=== PATIENT | male | born 1935 | race Caucasian/White ===

== ENCOUNTER 2016-03-04 07:37 | Outpatient (CLI) | payer MEDICARE, BC ==
[~2016-03-04] VITALS: Ht 182.9 cm; Wt 100.0 kg
--- NOTE | ~2016-03-04 | HEMODYNAMI ---
PATIENT:MJ GUTIERREZ MEDICAL RECORD: [id number] : 33 LOCATION:[facility] ADMISSION DATE: 03/04/16 Generatedon:03/04/201612:48 Patient name: MJ GUTIERREZ Patient #: [id number] SSN: [id number] : 1935 Date of study: 03/04/2016 Page: Of Hemodynamic Procedure Report Patient Data Patient Demographics Procedure consent was obtained First Name: MJ Gender: Male Last Name: MATT : 1935 [facility] Initial: L Age: 80 year(s) Patient #: [id number] Race: SSN: [id number] Additional ID: [id number] Contact details Address: [address] [place] [address] State: [place] City: [place] Zip code: [address] Past Medical History Allergies: No known allergies Admission Admission Data Admission Date: 03/04/2016 Admission Time: 7:37 Arrival Date: 03/04/2016 Arrival Time: 7:37 Admit Source: Other Insurance Payor: Medicare Height (in.): 72 BSA: 2.22 (m2) Height (cm.): 182.88 BMI: 29.84 (kg/m2) Weight (lbs.): 220 Weight (kg.): 99.79 Lab Results Lab Result Date: 03/04/2016 Lab Result Time: 0:00 Biochemistry Name Units Result Min Max BUN mg/dl 13 --(--*-)-- 7 18 Creatinine mg/dl 1.2 --(---*)-- 0.6 1.3 CBC Name Units Result Min Max Hemoglobin g/dl 14.7 --(-*--)-- 13.5 17.5 Procedure Procedure Types Cath Procedure Diagnostic Procedure [facility] w/Coronaries PCI Procedure Coronary Stent Initial Procedure Description Procedure Date Procedure Date: 03/04/2016 Procedure Start Time: 12:10 Procedure End Time: 12:41 Procedure Staff Name Function Keith Grider MD Performing Physician Lisa CHAPA Scrub Anusha White RN Nurse Leonidas Wise RN Undergraduate Internship Hoa Gonzales RT Monitor Indication Angina Procedure Data Cath Procedure Fluoroscopy Diagnostic fluoroscopy Total fluoroscopy Time: time: 14.3 min 14.3 min Diagnostic fluoroscopy Total fluoroscopy dose: dose: 1391.53 mGy 1391.53 mGy Contrast Material Contrast Material Type Amount (ml) Isovue 370 128 Entry Location Entry Primary Successful Side Size Upsize Upsize Entry Closure Succes sful Closure Location (Fr) 1 (Fr) 2 (Fr) Remarks Device Remarks Femoral Right 5 Fr 6 Fr Vascade artery Short Closure System Estimated blood loss: 5 ml Diagnostic catheters Device Type Used For End Catheter Placement Cordis 5Fr Pigtail LV Angiography Catheter (MP) Cordis 5Fr JL 4.0 Left Coronary Catheter (MP) Angiography Cordis 5Fr 3DRC Catheter Right Coronary (MP) Angiography Procedure Complications No complications Procedure Medications Medication Administration Route Dosage Oxygen NC 2 l/min Benadryl I.V. 50 mg Lidocaine 2% added to field 20 Heparin Flush Bag added to field 2 bags (1000units/500ml NS) 0.9% NaCl I.V. 100 ml/hr Versed I.V. 1 mg Fentanyl I.V. 50 mcg Versed I.V. 1 mg Fentanyl I.V. 50 mcg Heparin Bolus I.V. 4000 units Integrilin (Bolus I.V. 9 ml 2mg/ml) Plavix P.O. 600 mg Hemodynamics Rest BSA: 2.22 (m2) HGB: 14.7 (g/dl) O2 Consumption: Estimated: 247.45 (ml/min) O2 Co nsumption indexed: Estimated:111.46 (ml/min/m) Heart Rate: 63 (bpm) Pressure Samples Time Site Value (mmHg) Purpose Heart Use Rate(bpm) 12:12 LV 87/13,17 Snapshot 70 Snapshots Pre Cath Intra NCS Post Cath Vital Signs Time Heart Resp SPO2 NIBP (mmHg) Rhythm Pain Sedation Rate (ipm) (%) Status Level (bpm) 12:05:33 61 16 97 141/90(133) NSR 0 (11) 10(A) , No pain 12:10:36 52 23 96 123/77(103) NSR 0 (11) 10(A) , No pain 12:14:54 51 22 96 110/72(93) NSR 0 (11) 9(A) , No pain 12:19:53 58 20 96 120/68(99) NSR 0 (11) 9(A) , No pain 12:24:13 57 16 96 113/61(99) NSR 0 (11) 9(A) , No pain 12:28:21 51 17 96 109/69(95) NSR 0 (11) 9(A) , No pain 12:32:29 54 16 95 107/71(92) NSR 0 (11) 9(A) , No pain 12:36:41 59 17 96 120/71(104) NSR 0 (11) 9(A) , No pain 12:40:53 57 18 96 124/82(104) NSR 0 (11) 10(A) , No pain Medications Time Medication Route Dose Verified Delivered Reason Notes Effectiveness by by 12:06:10 Oxygen NC 2 Keith Buffie used for l/min Cheo White RN procedure 12:06:17 Benadryl I.V. 50 mg Keith Buffie used for Cheo White RN procedure 12:06:26 Lidocaine 2% added 20ml Keith Keith for local to vial Cheo Grider MD anesthetic field 12:06:31 Heparin Flush added 2 Keith Keith used for Bag to bags Cheo Grider MD procedure (1000units/500ml field NS) 12:06:42 0.9% NaCl I.V. 100 Keith Buffie Per physician ml/hr Cheo White RN 12:09:52 Versed I.V. 1 mg Keithpao Regaladoie for sedation Cheo White RN 12:09:58 Fentanyl I.V. 50 Keith Buffie for sedation mcg Cheo White RN 12:14:00 Versed I.V. 1 mg Keith Buffie for sedation Cheo White RN 12:14:04 Fentanyl I.V. 50 Keith Buffie for sedation mcg Cheo White RN 12:15:44 Heparin Bolus I.V. 4000 Keith Buffie for verifi ed units Cheo White RN anticoagulation with dr grider 12:19:25 Integrilin I.V. 9 ml Keith Buffie for (Bolus 2mg/ml) Cheo White RN antiplatelet therapy 12:43:59 Plavix P.O. 600 Keith Buffie for mg Cheo White RN antiplatelet therapy Procedure Log Time Note 11:45:14 Leonidas Wise RN sent for patient. Start room use. 11:52:59 Informed consent obtained and on chart 11:53:30 Diagnostic Cath Status : Elective 11:54:10 Indication : Angina 11:54:21 Time tracking: Regular hours 11:54:26 Plan of Care:Hemodynamics will remain stable., Cardiac rhythm will remain stable., Comfort level will be maintained., Respiratory function will remain adequate., Patient/ family verbilizes understanding of procedure., Procedure tolerated without complication., Recovers from procedure without complications.. 11:54:45 Patient received from Outpatients to [facility] 2 Alert and oriented. Tansferred to table in Supine position. 11:54:46 Warm blankets applied, and america hugger turned on for patient comfort. 11:54:46 Correct patient and procedure confirmed by team. 11:54:48 Signed procedure consent form obtained from patient. 12:04:15 ECG and BP/O2 sat monitors applied to patient. 12:04:15 Vital chart was started 12:04:19 Baseline sample Acquired. 12:04:33 Rhythm: atrial fibrillation 12:04:34 Full Disclosure recording started 12:04:47 H&P Date Dictated: 03/01/2016 Within 30 days and on chart., H&P Addendum completed by physician on day of procedure. (MUST COMPLETE FOR ALL OUTPATIENTS). 12:04:48 Pre-procedure instructions explained to patient. 12:04:49 Pre-op teaching completed and patient verbalized understanding. 12:04:50 Family in waiting room. 12:04:56 Patient NPO since Midnight. 12:05:07 Is the patient allergic to Iodine/contrast media? No. 12:05:14 Was the patient premedicated? No 12:05:15 Is patient on blood thinner?Yes 12:05:23 Patient diabetic? Yes. 12:05:30 If diabetic: On Metformin? No 12:05:34 Previous problem with sedation/anesthesia? No ? 12:05:36 Snore? No 12:05:37 Sleep apnea? No 12:05:38 Deviated septum? No 12:05:39 Opens mouth fully? Yes 12:05:40 Sticks out tongue? Yes 12:05:42 Airway obstruction? No ? 12:05:46 Dentures? Yes out 12:05:50 Pre procedure: right dorsailis pedis pulse 1+ Palpable, but thready & weak; easily obliterated 12:05:52 Patient pain scale 0/10 ?. 12:05:59 IV patent on arrival in left forearm with 0.9% NaCl at [facility]. 12:06:10 Oxygen 2 l/min NC was given by Anusha White RN; used for procedure; 12:06:17 Benadryl 50 mg I.V. was given by Anusha White RN; used for procedure; 12:: Lab Result : Creatinine 1.2 mg/dl 12:: Lab Result : BUN 13 mg/dl 12:: Lab Result : Hemoglobin 14.7 g/dl 12:: Lidocaine 2% 20ml vial added to field was given by Keith Grider MD; for local anesthetic; :: Lab results completed and on chart. 12:06:31 Heparin Flush Bag (1000units/500ml NS) 2 bags added to field was given by Keith Grider MD; used for procedure; 12:06:39 Right groin area was prepped with chlora-prep and draped in sterile fashion 12:06:41 Alarms reviewed by R. N. 12:06:41 Sharps counted by scrub and verified by R.N. 12:06:42 0.9% NaCl 100 ml/hr I.V. was given by Anusha White RN; Per physician; 12:06:43 Physician arrived 12:06:43 --------ALL STOP TIME OUT------ 12:06:44 Final Timeout: patient, procedure, and site verified with staff and physician. All members of the team are in agreement. 12:06:45 Right groin site verified by team. 12:06:48 Physical assessment completed. ASA score P 2 - A patient with mild systemic disease as per Keith Grider MD. 12:06:52 Sedation plan: IV Moderate Sedation Versed, Fentanyl 12:07:01 Zero performed for pressure channel P1 12::52 Versed 1 mg I.V. was given by Anusha White RN; for sedation; 12:09:58 Fentanyl 50 mcg I.V. was given by Anusha White RN; for sedation; 12:10:19 Use device set Femoral Dx 12:10:21 Acist Syringe opened to sterile field. 12:10:21 Bag Decanter opened to sterile field. 12:10:21 Cardinal Cath Pack opened to sterile field. 12:10:22 Terumo 5Fr Lihue Sheath opened to sterile field. 12:10:22 St Yoseph 260cm J .035 wire opened to sterile field. 12:10:24 Acist Hand Control opened to sterile field. 12:10:24 Acist Manifold opened to sterile field. 12:10:24 Cordis Infinity 5Fr Multipack catheter opened to sterile field. 12:10:25 Tegaderm 4 x 4 opened to sterile field. 12:10:29 Procedure started. 12:10:32 Local anesthetic to right femoral artery with Lidocaine 2% by Keith Grider MD.INITIAL ACCESS ONLY 12:10:40 A 5 Fr sheath was inserted into the Right Femoral artery 12:11:49 A Cordis 5Fr Pigtail Catheter (MP) was advanced over the wire and used for LV Angiography. 12:12:45 LV hemodynamics recorded. 12:12:46 LV gram done using AMADO 12:12:48 Injector settings: Ml/sec: 5, Volume: 15, 12:12:56 EF : 50 % 12:13:19 Catheter removed. 12:13:23 A Cordis 5Fr JL 4.0 Catheter (MP) was advanced over the wire and used for Left Coronary Angiography. 12:13:42 LCA angiography performed. 12:13:47 Injector settings: Ml/sec: 3, Volume: 6, 12:14:00 Versed 1 mg I.V. was given by Anusha White RN; for sedation; 12:14:04 Fentanyl 50 mcg I.V. was given by Anusha White RN; for sedation; 12:14:42 Catheter removed. 12:14:47 A Cordis 5Fr 3DRC Catheter (MP) was advanced over the wire and used for Right Coronary Angiography. 12:15:17 WolfGIS BasixCompak Inflation Kit opened to sterile field. 12:15:18 Wang Whisper J 300cm 0.014 guide wire opened to sterile field. 12:15:18 Terumo 6Fr Lihue Sheath opened to sterile field. 12:15:42 RCA angiography performed. 12:15:44 Heparin Bolus 4000 units I.V. was given by Anusha White RN; for anticoagulation; verified with dr grider 12:15:45 Injector settings: Ml/sec: 3, Volume: 6, 12:16:08 Cordis 6FR XBLAD 3.5 guide catheter opened to sterile field. 12:16:19 Catheter removed. 12:16:20 Proceeding to intervention. 12:16:44 Sheath upsized to a 6 Fr Short. 12:16:55 6 Fr xblad 3.5 guide catheter was inserted over the wire 12:17:03 whisper wire advanced. 12:18:06 Wire advanced across lesion. 12:19:25 Integrilin (Bolus 2mg/ml) 9 ml I.V. was given by Anusha White RN; for antiplatelet therapy; 12:21:06 The Medtronic Integrity 2.25 X 8 stent was advanced then removed because of failure to cross lesion 12:23:30 Inflation number: 1 A Euphora 1.5 x 10 Balloon was prepped and advanced across the Ramus, then inflated to 21 ELDER for 0:10 (min:sec). 12:23:47 Inflation number: 2 The Euphora 1.5 x 10 Balloon was reinflated across the Ramus, to 21 ELDER for 0:10 (min:sec). 12:24:00 Inflation number: 3 The Euphora 1.5 x 10 Balloon was reinflated across the Ramus, to 21 ELDER for 0:10 (min:sec). 12:24:37 Balloon removed over the wire. 12:26:09 Inflation number: 4 A Euphora 2.0 x 15 Balloon was prepped and advanced across the Ramus, then inflated to 17 ELDER for 0:10 (min:sec). 12:26:18 Inflation number: 5 The Euphora 2.0 x 15 Balloon was reinflated across the Ramus, to 17 ELDER for 0:10 (min:sec). 12:26:49 Inflation number: 6 The Euphora 2.0 x 15 Balloon was reinflated across the Ramus, to 17 ELDER for 0:10 (min:sec). 12:27:44 Balloon removed over the wire. 12:29:09 The Medtronic Integrity 2.25 X 8 stent was advanced then removed because of failure to cross lesion 12:30:32 Inflation number: 7 A Euphora 2.5 x 15 Balloon was prepped and advanced across the Ramus, then inflated to 13 ELDER for 0:10 (min:sec). 12:32:43 The Medtronic Integrity 2.25 X 8 stent was advanced then removed because of failure to cross lesion 12:34:17 Inflation number: 8 The Euphora 2.5 x 15 Balloon was reinflated across the Ramus, to 11 ELDER for 0:10 (min:sec). 12:34:36 Inflation number: 9 The Euphora 2.5 x 15 Balloon was reinflated across the Ramus, to 17 ELDER for 0:10 (min:sec). 12:34:52 Balloon removed over the wire. 12:36:42 [place] DinnerTime Choice PT Extra Support J 300cm .014 gu opened to sterile field. 12:36:55 choice pt wire advanced. 12:38:32 Inflation Number: 10 A Medtronic Integrity 2.25 X 8 stent was prepped and advanced across the Ramus. The stent was deployed at 21 ELDER for 0:10 (min:sec). 12:39:12 Stent catheter was removed intact over wire. 12:39:13 Wire removed. 12:39:13 Guide catheter removed. 12:39:52 Vascade 6/7 Fr Closure Device opened to sterile field. 12:40:28 Sheath removed intact; hemostasis achieved with Vascade Closure System to the Right Femoral artery. 12:40:30 Procedure ended.(Physican Out) 12:40:39 Fluoroscopy time 14.30 minutes. 12:40:46 Fluoroscopy dose: 1391.53 mGy 12:40:46 Flurop Dose total: 1391.53 12:41:06 Contrast amount:Isovue 370 128ml. 12:41:08 Sharps counted by scrub and verified by R.N. 12:41:10 Insertion/operative site no bleeding no hematoma. 12:41:12 Post-op/insertion site Right Femoral artery dressed using a 4 x 4 and Tegaderm. 12:41:15 Post right femoral artery:stable 12:41:17 Post Procedure Pulses reassessed and unchanged 12:41:19 Post procedure rhythm: unchanged. 12:41:22 Estimated blood loss: 5 ml 12:41:23 Post procedure instruction explained to patient.Patient verbalizes understanding. 12:41:24 Patient needs reinforcement of post procedure teaching. 12:41:36 Procedure type changed to Cath procedure, Diagnostic procedure, LHC, C w/Coronaries, PCI procedure, Coronary Stent Initial 12:41:37 Procedure and supply charges have been captured, reviewed, submitted and are correct. 12:41:44 Procedure Complication : No complications 12:41:46 Vital chart was stopped 12:41:47 See physician's report for complete and final results. 12:41:53 Report given to Post Procedure Room. 12:41:56 Patient transfered to Post Procedure Room with Stretcher. 12:41:58 Procedure ended. 12:41:58 Full Disclosure recording stopped 12:42:51 ACC-PCI Only Patient was given prescriptions, or instructed by Keith Grider MD to start/continue the following medications upon discharge: Plavix 12:42:53 End room use (Document Last) 12:43:59 Plavix 600 mg P.O. was given by Anusha White RN; for antiplatelet therapy; 12:47:11 Admit Source: Other 12:47:16 Arrival Date: 03/04/2016 7:37:00 AM 12:47:23 Insurance Payor : Medicare 12:47:29 Patient Height : 182.88 cm 12:47:33 Patient Weight : 99.79 kg Intervention Summary Intervention Notes Time ActionType Lesion and Equipment Action# Pressure Duration Attributes Used 12:21:06 Discard Medtronic Stent Integrity 2.25 X 8 stent 12:23:30 Inflate Ramus Euphora 1 21 00:10 balloon 1.5 x 10 Balloon 12:23:47 Reinflate Ramus Euphora 2 21 00:10 balloon 1.5 x 10 Balloon 12:24:00 Reinflate Ramus Euphora 3 21 00:10 balloon 1.5 x 10 Balloon 12:26:09 Inflate Ramus Euphora 4 17 00:10 balloon 2.0 x 15 Balloon 12:26:18 Reinflate Ramus Euphora 5 17 00:10 balloon 2.0 x 15 Balloon 12:26:49 Reinflate Ramus Euphora 6 17 00:10 balloon 2.0 x 15 Balloon 12:29:09 Discard Medtronic Stent Integrity 2.25 X 8 stent 12:30:32 Inflate Ramus Euphora 7 13 00:10 balloon 2.5 x 15 Balloon 12:32:43 Discard Medtronic Stent Integrity 2.25 X 8 stent 12:34:17 Reinflate Ramus Euphora 8 11 00:10 balloon 2.5 x 15 Balloon 12:34:36 Reinflate Ramus Euphora 9 17 00:10 balloon 2.5 x 15 Balloon 12:38:32 Place stent Ramus Medtronic 10 21 00:10 Integrity 2.25 X 8 stent Device Usage Item Name Manufacture Quantity Catalog Number Hospital Part Current Minim al Lot# / Charge Number Stock Stock Serial# Code Acist Acist 1 26640 083540 990775 411285 20 Syringe Medical Systems Inc Bag Microtek 1 2002S 824791 24208 890515 5 Clinked Inc. Cardinal Cardinal 1 [id number] 422954 20193 114169 5 Cath Pack Health Terumo 5Fr Terumo 1 [id number] 178185 961802 975320 [address] Y[address] St Yoseph 1 574961 001189 391004 750635 30 260cm J .035 wire Acist Hand Acist 1 56305 258518 665498 083284 5 Equipois Medical Systems Inc Acist Acist 1 60431 378206 472941 120501 5 Elastix Corporation Medical Systems Inc Cordis Cardinal 1 [id number] 230126 07393 365839 30 Infinity Health 5Fr Multipack catheter Tegaderm 4 3M 1 1626W 680479 244802 289377 5 x 4 Cordis 5Fr Cardinal 1 909231 5 Pigtail Health Catheter (MP) Cordis 5Fr Cardinal 1 192020 5 JL 4.0 Health Catheter (MP) Cordis 5Fr Cardinal 1 495406 5 3D Health Catheter (MP) Merit Merit 1 [id number] 833497 421344 773360 15 BasixKatuah Marketctk Medical Inflation Kit Wang Wang 1 [id number] 262718 476285 087871 5 Whisper J Vascular 300cm 0.014 guide wire Terumo 6Fr Terumo 1 [id number] 407253 339455 084172 40 Lihue Sheath Cordis 6FR Cardinal 1 [id number] 792849 387452 727872 10 XBLAD 3.5 Health guide catheter Medtronic Medtronic 1 [id number] 759278 734854 561277 9 [id number] Integrity 2.25 X 8 stent Euphora 1.5 Medtronic 1 [id number] 930631 049022 183234 5 [id number] x 10 Balloon Euphora 2.0 Medtronic 1 [id number] 419822 133065 143351 5 [id number] x 15 Balloon Euphora 2.5 Medtronic 1 [id number] 007297 924683 541259 5 [id number] x 15 Balloon [place]room[place] Sci [place] 1 [id number] 914169 878950 440627 5 [id number] Choice PT Scientific Extra Support J 300cm .014 gu Vascade 08/03 Cardiva 1 [id number] 949408 951933 299505 5 Fr Closure Medical, Device Inc. Signature Audit [place] Stage Time Signature Unsigned Intra-Procedure 03/04/2016 Hoa Gonzales 12:48:00 PM RT(R) Signatures Monitor : Hoa Gonzales RT Signature : Date : Time : [address] [address]
[~2016-03-04 07:37] MED LIST: BAYER CHEWABLE81 MG PO; FLOMAX0.4 MG PO; GLUCOTROL 5 MG T5 MG PO; PRAVACHOL40 MG PO; TOPROL XL100 MG PO; XARELTO20 MG PO
[2016-03-04] MEDS ORDERED: LISINOPRIL2.5 MG PO (10:05)
[2016-03-04 10:10] LABS: BASOPHILS 0.4 % (0.0-2.0); EOSINOPHILS 3.6 % (0-7); HEMATOCRIT 43.2 % (42.0-54.0); HEMOGLOBIN 14.7 g/dL (13.5-17.5); IMMATURE GRANULOCYTES 0.3 % (0-5); LYMPHOCYTES 21.1 % (15-50); MCH 32.1 pg (26.0-34.0); MCV 94.3 fL (80.0-100.0); MEAN PLATELET VOLUME 11.2 fL (7.4-10.4); MONOCYTES 5.4 % (2-11); NEUTROPHILS 69.2 % (40-80); RBC 4.58 10x6/uL (4.20-6.10); RDW 13.2 % (11.5-14.5); WBC 7.8 10x3/uL (4.8-10.8)
[2016-03-04 10:16] VITALS: BP 126/79; Ht 182.9 cm; Wt 100.0 kg
[2016-03-04 10:17] LABS: CALCIUM 9.7 mg/dL (8.5-10.1); CARBON DIOXIDE 26.5 mmol/L (21.0-32.0); CREATININE - SERUM 1.2 mg/dL (0.6-1.3); POTASSIUM - SERUM 4.5 mmol/L (3.5-5.1)
[2016-03-04 10:28] LABS: PLATELET COUNT 161 10x3/uL (130-400)
[2016-03-04] MEDS ORDERED: PLAVIX75 MG PO (12:49)
--- NOTE | 2016-03-04 13:08 | NUR ---
1305 CONTINUES TO SLEEP, NC IN PLACE 2L WITH NO RESP DISTRESS. NSR RATE 57 W NO C/O CHEST PAIN. PULSES PALP X 4. R GROIN REMAINS C/D/I WITH NO HEMATOMA OR BLEEDING. AT BEDSIDE.
--- NOTE | 2016-03-04 15:38 | NUR ---
1400 LYING FLAT, ROOM AIR WITH NO DISTRESS. SBRADY RATE 59 WNO C/O CHEST PAIN. PULSES PALP X4. R GROIN C/D/I WITH NO HEMATOMA OR BLEEDING. FAMILY AT BEDSIDE.
--- NOTE | 2016-03-04 15:41 | NUR ---
1445 EATING TURKEY SANDWICH TRAY WITH ASSIST FROM FAMILY. ALL VITALS WNL. R GROIN 6F VASCADE C/D/I WITH NO HEMATOMA OR BLEEDING.
--- NOTE | 2016-03-04 16:03 | NUR ---
L WRIST PIV REMOVED WITH BANDAID APPLIED. UP TO BED TO DRESS WITH ASSIST FROM FAMILY.
--- NOTE | 2016-03-04 16:25 | NUR ---
AMBULATED TO BATHROOM TO VOID. R GROIN REMAINS C/D/I WITH NO HEMATOMA OR BLEEDING AFTER AMBULATING. BACK TO BEDSIDE. D/C INSTRUCTIONS DISCUSSED WITH PATIENT AND FAMILY.
--- NOTE | 2016-03-04 16:30 | NUR ---
WHEELED DOWN VIA WHEELCHAIR BY PALLET REPAIRER STAFF.
--- NOTE | 2016-03-11 11:11 | OP ---
PATIENT NAME: MJ GUTIERREZ MEDICAL RECORD: [id number] :33 LOCATION:D.CAT ADMISSION DATE: SURGEON: ANITRA LEUNG MD DATE OF OPERATION: 03/04/2016 PROCEDURES: 1. PTCA stent of the ramus intermedius. 2. Left heart catheterization. 3. Selective coronary angiography. 4. Left ventriculogram. INDICATION: Angina and coronary artery disease. PROCEDURE IN DETAIL: After informed consent was obtained and after a detailed explanation of the risks, benefits as well as alternative therapies, the patient elected to proceed with angiogram and angioplasty. The right femoral area was prepped and draped in normal sterile fashion. The right femoral artery was cannulated via modified Seldinger technique with placement of 6-Danish sheath. All catheters exchanged through this sheath. FINDINGS: Left ventriculogram was performed in the standard 30-degree AMADO view reveals global hypokinesis throughout all segments. Overall ejection fraction is 40%. SELECTIVE CORONARY ANGIOGRAPHY: 1. Left main showed no significant angiographic disease. 2. Left anterior descending has previously placed stents, these are widely patent with no significant restenosis. No disease elsewise throughout the LAD or its branches. 3. Left circumflex has a ramus intermedius, it has a 95% stenosis at the ostium, otherwise the circumflex shows moderate irregularities, but no flow-limiting stenosis. 4. Right coronary has moderate irregularities, but no flow-limiting stenosis. PERCUTANEOUS TRANSLUMINAL CORONARY ANGIOPLASTY STENT OF THE RAMUS INTERMEDIUS: The stent used was a 2.25 x 8 mm Integrity taken to 21 atmospheres. Result was 0% residual stenosis. OVERALL IMPRESSION: Successful percutaneous transluminal coronary angioplasty stent of the ramus intermedius going from 95% initial stenosis to 0% residual. TRANSINT:[id number] Voice Confirmation ID: [id number] DOCUMENT ID: [id number] ANITRA LEUNG MD at 1111 CC: [id number] DICTATION DATE: 03/04/16 1243 PILOT BOAT OPERATOR: 03/04/16 1420 DEP CLI 03/04/[address] [address]
== END 2016-03-04 16:32 | disposition home or self-care (01) ==
LOC: D.CATH 07:37
PROVIDERS: Internal Medicine Interventional Cardiology
DX: I25.119 Atherosclerotic heart disease of native coronary artery with unspecified angina pectoris (principal); R06.02 Shortness of breath; I48.91 Unspecified atrial fibrillation; Z87.891 Personal history of nicotine dependence; E78.5 Hyperlipidemia, unspecified; E11.9 Type 2 diabetes mellitus without complications; I10 Essential (primary) hypertension

== ENCOUNTER 2016-05-14 10:12 | Emergency (ER) | payer MEDICARE, BC ==
[2016-03-04 10:16] VITALS: BMI 29.9
[~2016-05-14 10:12] MED LIST changes: +LISINOPRIL2.5 MG PO; +PLAVIX75 MG PO
[2016-05-14 11:03] LABS: BASOPHILS 0.1 % (0.0-2.0); EOSINOPHILS 0.1 % (0-7); HEMATOCRIT 36.9 % (42.0-54.0); HEMOGLOBIN 12.5 g/dL (13.5-17.5); IMMATURE GRANULOCYTES 0.3 % (0-5); MCH 31.6 pg (26.0-34.0); MCHC 33.9 g/dL (31.0-37.0); MCV 93.4 fL (80.0-100.0); MEAN PLATELET VOLUME 11.2 fL (7.4-10.4); MONOCYTES 3.7 % (2-11); NEUTROPHILS 90.8 % (40-80); RBC 3.95 10x6/uL (4.20-6.10); RDW 13.1 % (11.5-14.5); WBC 10.2 10x3/uL (4.8-10.8)
[2016-05-14 11:16] LABS: PLATELET COUNT 123 10x3/uL (130-400)
[2016-05-14 11:34] LABS: ALBUMIN 3.4 g/dL (3.4-5.0); ANION GAP 14.5 mmol/L (8-16); BILIRUBIN - TOTAL 1.06 mg/dL (0.2-1.3); CALCIUM 8.4 mg/dL (8.5-10.1); CARBON DIOXIDE 25.4 mmol/L (21.0-32.0); CREATININE - SERUM 1.1 mg/dL (0.6-1.3); POTASSIUM - SERUM 3.9 mmol/L (3.5-5.1); PROTEIN - SERUM 6.8 g/dL (6.4-8.2)
[2016-05-14 11:40] LABS: APPEARANCE CLEAR (CLEAR); BILIRUBIN NEGATIVE (NEGATIVE); COLOR YELLOW (YELLOW); GLUCOSE 50 mg/dL (NEGATIVE); KETONE MODERATE mg/dL (NEGATIVE); LEUKOCYTE ESTERASE NEGATIVE (NEGATIVE); NITRITE NEGATIVE (NEGATIVE); PROTEIN 2+ mg/dL (NEGATIVE); SPECIFIC GRAVITY 1.015 (1.005-1.020); UROBILINOGEN NORMAL (NORMAL)
[2016-05-14 11:44] LABS: BACTERIA FEW /hpf (NONE SEEN); EPITHELIAL CELLS 0-5 /hpf (0-5); RED CELLS - URINE 0-5 /hpf (0-5); WHITE CELLS - URINE 0-5 /hpf (0-5)
== END 2016-05-14 13:39 | disposition home or self-care (01) ==
LOC: D.ER 10:12
PROVIDERS: Emergency Medicine
DX: J06.9 Acute upper respiratory infection, unspecified (principal); J40 Bronchitis, not specified as acute or chronic; I10 Essential (primary) hypertension; E78.5 Hyperlipidemia, unspecified; E11.9 Type 2 diabetes mellitus without complications; I48.91 Unspecified atrial fibrillation; I49.3 Ventricular premature depolarization

== ENCOUNTER 2016-07-26 09:13 | Outpatient (CLI) | payer MEDICARE, BC ==
[~2016-07-26] VITALS: Ht 182.9 cm; Wt 104.5 kg
--- NOTE | ~2016-07-26 | HEMODYNAMI ---
PATIENT:MJ GUTIERREZ MEDICAL RECORD: [id number] : 33 LOCATION:[facility] ADMISSION DATE: 07/26/16 Generatedon:07/26/201611:05 Patient name: MJ GUTIERREZ Patient #: [id number] SSN: [id number] : 1935 Date of study: 07/26/2016 Page: Of Hemodynamic Procedure Report Patient Data Patient Demographics Procedure consent was obtained First Name: MJ Gender: Male Last Name: MATT : 1935 Middle Initial: L Age: 80 year(s) Patient #: [id number] Race: SSN: [id number] Additional ID: [id number] Contact details [address]: [address] [place] [address] State: [place] City: [place] Zip code: [address] Past Medical History Allergies: No known allergies Admission Admission Data Admission Date: 07/26/2016 Admission Time: 9:13 Procedure Procedure Types Cath Procedure Diagnostic Procedure LH LH w/Coronaries PCI Procedure Coronary Stent Initial Miscellaneous Procedures Moderate Sedation up to 30 minutes Procedure Description Procedure Date Procedure Date: 07/26/2016 Procedure Start Time: 10:36 Procedure End Time: 11:05 Procedure Staff Name Function Keith Grider MD Performing Physician Valentine Desai RN Nurse Rogelio Garcia RT Scrub [place] RT Monitor Procedure Data Cath Procedure Fluoroscopy Diagnostic fluoroscopy Total fluoroscopy Time: 9.1 time: 9.1 min min Diagnostic fluoroscopy Total fluoroscopy dose: dose: 1469 mGy 1469 mGy Contrast Material Contrast Material Type Amount (ml) Isovue 300 132 Entry Location Entry Primary Successful Side Size Upsize Upsize Entry Closure Succes sful Closure Location (Fr) 1 (Fr) 2 (Fr) Remarks Device Remarks Femoral Right 5 Fr 6 Fr Exoseal artery Short Estimated blood loss: 10 ml Diagnostic catheters Device Type Used For End Catheter Placement Cordis 5Fr Pigtail Procedure Catheter (MP) Cordis 5Fr JL 4.0 Procedure Catheter (MP) Cordis 5Fr 3DRC Catheter Procedure (MP) Procedure Complications No complications Procedure Medications Medication Administration Route Dosage Oxygen NC 3 l/min Heparin Flush Bag added to field 2 bags (1000units/500ml NS) Lidocaine 2% added to field 20 Versed I.V. 1 mg Fentanyl I.V. 50 mcg Fentanyl I.V. 50 mcg Versed I.V. 1 mg Fentanyl I.V. 25 mcg Heparin Bolus I.V. 4000 units Integrilin (Bolus I.V. 9.5 ml 2mg/ml) Integrilin (Bolus wasted 0.5 ml 2mg/ml) Plavix P.O. 600 mg Hemodynamics Rest Heart Rate: 66 (bpm) Snapshots Pre Cath Intra NCS Post Cath Vital Signs Time Heart Resp SPO2 NIBP (mmHg) Rhythm Pain Sedation Rate (ipm) (%) Status Level (bpm) 10:29:26 58 21 97 No Cuff A-Fib 0 (11) 10(A) , No pain 10:31:14 62 14 98 150/91(134) A-Fib 0 (11) 10(A) , No pain 10:35:32 66 16 98 151/110(134) A-Fib 0 (11) 10(A) , No pain 10:39:48 56 21 96 135/82(109) A-Fib 0 (11) 9(A) , No pain 10:44:04 62 16 96 140/85(108) A-Fib 0 (11) 9(A) , No pain 10:48:16 59 16 95 122/79(110) A-Fib 0 (11) 9(A) , No pain 10:52:26 63 15 96 115/82(95) A-Fib 0 (11) 9(A) , No pain 10:56:36 65 12 97 113/76(84) A-Fib 0 (11) 9(A) , No pain 11:00:46 57 22 97 113/75(95) A-Fib 0 (11) 9(A) , No pain 11:02:45 63 24 95 106/71(88) A-Fib 0 (11) 10(A) , No pain Medications Time Medication Route Dose Verified Delivered Reason Notes Effectiveness by by 10:29:05 Oxygen NC 3 Keith Grijalva Per physician l/min Cheo Desai RN 10:29:13 Heparin Flush added 2 Keith Parker used for Bag to bags Cheo Grider MD procedure (1000units/500ml field NS) 10:29:19 Lidocaine 2% added 20ml Keithpao Parker used for to vial Cheo Grider MD procedure field 10:32:31 Versed I.V. 1 mg Keith Valentine for sedation Cheo Desai RN 10:32:45 Fentanyl I.V. 50 Keith Valentine for sedation mcg Cheo Desai RN 10:34:54 Fentanyl I.V. 50 Keith Valentine for sedation mcg Cheo Desai RN 10:34:59 Versed I.V. 1 mg Keith Valentine for sedation Cheo Desai RN 10:37:06 Fentanyl I.V. 25 Keith Valentine for sedation mcg Cheo Desai RN 10:43:51 Heparin Bolus I.V. 4000 Keith Valentine for units Cheo Desai RN anticoagulation 10:44:01 Integrilin I.V. 9.5 Keith Valentine for (Bolus 2mg/ml) ml Cheo Desai RN antiplatelet therapy 10:44:14 Integrilin wasted 0.5 Keith Valentine for (Bolus 2mg/ml) ml Cheo Desai RN antiplatelet therapy 11:04:22 Plavix P.O. 600 Keith Valentine for mg Cheo Desai RN antiplatelet therapy Procedure Log Time Note 10:00:16 Rogelio Garcia RT(R) sent for patient. Start room use. 10:17:23 Time tracking: Regular hours 10:17:27 Plan of Care:Hemodynamics will remain stable., Cardiac rhythm will remain stable., Comfort level will be maintained., Respiratory function will remain adequate., Patient/ family verbilizes understanding of procedure., Procedure tolerated without complication., Recovers from procedure without complications.. 10:21:20 Patient received from Pre/Post Procedure Room to CCL 2 Alert and oriented. Tansferred to table in Supine position. 10:21:21 Warm blankets applied, and america hugger turned on for patient comfort. 10:21:22 Correct patient and procedure confirmed by team. 10::23 Signed procedure consent form obtained from patient. 10:21:23 ECG and BP/O2 sat monitors applied to patient. 10:28:36 Vital chart was started 10:28:37 Baseline sample Acquired. 10:28:44 Rhythm: sinus rhythm 10:28:45 Full Disclosure recording started 10::58 H&P Date Dictated: 07/26/2016 New H&P dictated by physician.. 10:28:59 Pre-procedure instructions explained to patient. 10:28:59 Pre-op teaching completed and patient verbalized understanding. 10:29:01 Family in patients room. 10:29:02 Patient NPO since Midnight. 10:29:05 Oxygen 3 l/min NC was administered by Valentine Desai RN; Per physician; 10:29:10 Is the patient allergic to Iodine/contrast media? No. 10:29:13 Heparin Flush Bag (1000units/500ml NS) 2 bags added to field was administered by Keith Grider MD; used for procedure; 10:29:15 Is patient on blood thinner?Yes 10:29:19 Lidocaine 2% 20ml vial added to field was administered by Keith Grider MD; used for procedure; 10:29:53 Last dose of Xarelto: 07/24/16 10:29:55 Patient diabetic? Yes. 10:29:56 If diabetic: On Metformin? No 10:30:03 Previous problem with sedation/anesthesia? No ? 10:30:04 Snore? No 10:30:10 Sleep apnea? No 10:30:11 Deviated septum? No 10:30:17 Opens mouth fully? Yes 10:30:20 Sticks out tongue? Yes 10:30:21 Airway obstruction? No ? 10:30:41 Dentures? Yes TOP IN 10:30:44 Pre procedure: right dorsailis pedis pulse 1+ Palpable, but thready & weak; easily obliterated 10:30:48 Patient pain scale 0/10 ?. 10:31:22 IV patent on arrival in left hand with 0.9% NaCl at O. 10:31:24 Lab results completed and on chart. 10:31:30 Right groin area was prepped with chlora-prep and draped in sterile fashion 10:31:31 Alarms reviewed by R. N. 10:31:31 Sharps counted by scrub and verified by R.N. 10:31:35 Use device set Femoral Dx 10:31:37 Tegaderm 4 x 4 opened to sterile field. 10:31:38 Acist Hand Control opened to sterile field. 10:31:38 Acist Manifold opened to sterile field. 10:31:40 Acist Syringe opened to sterile field. 10:31:40 Bag Decanter opened to sterile field. 10:31:40 Medline Cath Pack opened to sterile field. 10:31:41 Terumo 5Fr War Sheath opened to sterile field. 10:31:41 St Yoseph 260cm J .035 wire opened to sterile field. 10:31:43 Diagnostic Infinity 5Fr Multipack catheter opened to sterile field. 10:32: --------ALL STOP TIME OUT------ 10:32: Final Timeout: patient, procedure, and site verified with staff and physician. All members of the team are in agreement. 10:32:28 Right groin site verified by team. 10:32:31 Versed 1 mg I.V. was administered by Valentine Desai RN; for sedation; 10:32:31 Physical assessment completed. ASA score P 2 - A patient with mild systemic disease as per Keith Grider MD. 10:32:33 Sedation plan: IV Moderate Sedation Versed, Fentanyl 10:32:45 Fentanyl 50 mcg I.V. was administered by Valentine Desai RN; for sedation; 10:34:54 Fentanyl 50 mcg I.V. was administered by Valentine Desai RN; for sedation; 10:34:59 Versed 1 mg I.V. was administered by Valentine Desai RN; for sedation; 10:36:00 Zero performed for pressure channel P1 10:36:25 Procedure started. 10:36:30 Local anesthetic to right femoral artery with Lidocaine 2% by Keith Grider MD.INITIAL ACCESS ONLY 10:36:39 A 5 Fr sheath was inserted into the Right Femoral artery 10:37:05 A Cordis 5Fr Pigtail Catheter (MP) was advanced over the wire and used for Procedure. 10:37:06 Fentanyl 25 mcg I.V. was administered by Valentine Desai RN; for sedation; 10:37:29 LV angiography performed. 10:37:30 LV gram done using AMADO 10:37:36 EF : 25 % 10:37:44 Catheter exchanged over wire. 10:37:50 A Cordis 5Fr JL 4.0 Catheter (MP) was advanced over the wire and used for Procedure. 10:39:28 LCA angiography performed. 10:39:29 Catheter exchanged over wire. 10:39:42 A Cordis 5Fr 3DRC Catheter (MP) was advanced over the wire and used for Procedure. 10:40:13 RCA angiography performed. 10:40:16 Catheter exchanged over wire. 10:40:34 Terumo 6Fr War Sheath opened to sterile field. 10:40:34 Merit BasixCompak Inflation Kit opened to sterile field. 10:40:35 Wang Whisper J 300cm 0.014 guide wire opened to sterile field. 10:42:50 Cordis 6FR XBLAD 4.0 guide catheter opened to sterile field. 10:43:01 Sheath upsized to a 6 Fr Short. 10:43:12 ACC PCI Site: Ramus has 90% stenosis. 10:43:14 ACC Pre-intervention NICOLA Flow is 3. 10:43:21 6 Fr XBLAD 4 guide catheter was inserted over the wire 10:43:51 Heparin Bolus 4000 units I.V. was administered by Valentine Desai RN; for anticoagulation; 10:44:00 Whisper wire advanced. 10:44:01 Integrilin (Bolus 2mg/ml) 9.5 ml I.V. was administered by Valentine Desai RN; for antiplatelet therapy; 10:44:14 Integrilin (Bolus 2mg/ml) 0.5 ml wasted was administered by Valentine Desai RN; for antiplatelet therapy; 10:45:57 Wire advanced across lesion. 10:46:42 Inflation number: 1 A [place] Sci Geary 2.5 X 15 balloon was prepped and advanced across the Ramus, then inflated to 11 ELDER for 0:10 (min:sec). 10:47:23 Balloon removed over the wire. 10:50:35 The Biofreedom 2.5 x 14 stent (No Cost Implant) was advanced then removed because it fell on the floor 10:51:44 Geary 2.5x15 advanced across lesion, wire exchanged Choice PT XS. 10:51:53 [place] Sci Choice PT Extra Support J 300cm .014 gu opened to sterile field. 10:52:13 Inflation number: 2 The [place] Sci Geary 2.5 X 15 balloon was reinflated across the Ramus, to 13 ELDER for 0:10 (min:sec). 10:53:54 Multiple inflations made at 13 Atms. 10:53:56 Balloon removed over the wire. 10:54:33 Inflation number: 3 A NC Euphora 2.5 x 12 balloon was prepped and advanced across the Ramus, then inflated to 21 ELDER for 0:10 (min:sec). 10:55:17 Balloon removed over the wire. 10:56:37 Inflation Number: 4 A Biofreedom 2.25 x 8 Stent (No Cost Implant) was prepped and advanced across the Ramus. The stent was deployed at 17 ELDER for 0:10 (min:sec). 10:58:02 Stent catheter was removed intact over wire. 10:58:03 Wire removed. 10:58:07 Guide catheter removed. 10:58:09 ACC Post-intervention NICOLA Flow is 3. 10:58:40 Cordis 6Fr Exoseal opened to sterile field. 10:59:00 Sheath removed intact; hemostasis achieved with Exoseal to the Right Femoral artery. 10:59:03 Procedure ended.(Physican Out) 10:59:47 Fluoroscopy time 09.10 minutes. 10:59:51 Fluoroscopy dose: 1469 mGy 10:59:51 Flurop Dose total: 1469 11:00:09 Contrast amount:Isovue 300 132ml. 11:00:12 Sharps counted by scrub and verified by R.N. 11:00:13 Insertion/operative site no bleeding no hematoma. 11:00:15 Post-op/insertion site Right Femoral artery dressed using a 4 x 4 and Tegaderm. 11:00:16 Post Procedure Pulses reassessed and unchanged 11:00:19 Post-procedure physical assessment completed. ASA score P 2 - A patient with mild systemic disease as per Keith Grider MD. 11:00:22 Post procedure rhythm: unchanged. 11:00:24 Estimated blood loss: 10 ml 11:00:26 Post procedure instruction explained to patient.Patient verbalizes understanding. 11:00:26 Patient needs reinforcement of post procedure teaching. 11:00:40 Procedure type changed to Cath procedure, Diagnostic procedure, LHC, LHC w/Coronaries, PCI procedure, Coronary Stent Initial, Miscellaneous Procedures, Moderate Sedation up to 30 minutes 11:00:43 Procedure Complication : No complications 11:02:05 Procedure and supply charges have been captured, reviewed, submitted and are correct. 11:04:22 Plavix 600 mg P.O. was administered by Valentine Desai RN; for antiplatelet therapy; 11:05:09 Vital chart was stopped 11:05:09 See physician's report for complete and final results. 11:05:12 Report given to Pre/Post Procedure Room. 11:05:14 Patient transfered to Pre/Post Procedure Room with Stretcher. 11:05:21 Procedure ended. 11:05:21 Full Disclosure recording stopped 11:05:28 End room use (Document Last) Intervention Summary Intervention Notes Time ActionType Lesion and Equipment Action# Pressure Duration Attributes Used 10:46:42 Inflate Ramus [place] Sci 1 11 00:10 balloon Geary 2.5 X 15 balloon 10:50:35 Discard Biofreedom Stent 2.5 x 14 stent (No Cost Implant) 10:52:13 Reinflate Ramus [place] Sci 2 13 00:10 balloon Geary 2.5 X 15 balloon 10:54:33 Inflate Ramus NC Euphora 3 21 00:10 balloon 2.5 x 12 balloon 10:56:37 [address] stent Ramus Biofreedom 4 17 00:10 2.25 x 8 Stent (No Cost Implant) Device Usage Item Name Manufacture Quantity Catalog Number Hospital Part Current Mini mal Lot# / Charge Number Stock Stock Serial# Code Tegaderm 4 1 [id number] [id number] 5 x 4 Acist Hand Acist 1 83450 745697 792562 595362 5 Control Medical Systems Inc Acist Acist 1 96997 376571 729941 587213 5 Manifold Medical Systems Inc Acist Acist 1 04640 906651 943458 838371 20 Syringe Medical Systems Inc Bag Microtek 1 2002S 811887 52989 764685 5 DecBragBet. Medline Cardinal 1 [id number] 470324 89726 566205 5 Screenie Terumo 5Fr Terumo 1 [id number] 718864 380250 120159 [address] [facility] St Yoseph 1 963192 917554 794244 406445 30 260cm J .035 wire Diagnostic Cardinal 1 [id number] 222889 11868 484160 30 Infinity Health 5Fr Multipack catheter Cordis 5Fr Cardinal 1 [id number] 5 Pigtail Health Catheter (MP) Cordis 5Fr Cardinal 1 830975 5 JL 4.0 Health Catheter (MP) Cordis 5Fr Cardinal 1 301551 5 3DRC Health Catheter (MP) Terumo 6Fr Terumo 1 [id number] 591192 464968 970758 40 War Sheath Merit Merit 1 [id number] 053002 398326 177461 15 BasixCompak Medical Inflation Kit Wang Wang 1 [id number] 153894 027313 400631 5 Whisper J Vascular 300cm 0.014 guide wire Cordis 6FR Cardinal 1 [id number] 805765 636019 638164 3 XBLAD 4.0 Health guide catheter [place] Sci [place] 1 [id number] 437158 332843 191435 1 DNAe LTD 2.5 X 15 balloon Biofreedom Biosensors 1 [facility]2-2514 818413 126160 5 [id number] 2.5 x 14 Europe SA stent (No Cost Implant) [place] Sci [place] 1 [id number] 893086 20180828 544471 5 Choice PT Scientific Extra Support J 300cm .014 gu NC Euphora Medtronic 1 [id number] 550867 657854 657782 1 [id number] 2.5 x 12 balloon Biofreedom Biosensors 1 [facility]2-2208 233325 322250 5 [id number] 2.25 x 8 Europe SA Stent (No Cost Implant) Cordis 6Fr Cardinal 1 EX600 360510 155466 719452 10 [facility] [employer] Signature Audit [place] Stage Time Signature Unsigned Intra-Procedure 07/26/2016 [place] 11:05:51 AM RT(R) Signatures Monitor : [place] RT Signature : Date : Time : [facility] [address] [facility] [place] [address]
[2016-07-26 09:36] VITALS: BP 159/92; Ht 182.9 cm; Wt 104.5 kg
[2016-07-26 10:07] LABS: BASOPHILS 0.2 % (0-2); EOSINOPHILS 2.9 % (0-7); HEMATOCRIT 39.4 % (42.0-54.0); HEMOGLOBIN 13.5 g/dL (13.5-17.5); IMMATURE GRANULOCYTES 0.2 % (0-5); LYMPHOCYTES 14.1 % (15-50); MCH 32.2 pg (26.0-34.0); MCHC 34.3 g/dL (31.0-37.0); MEAN PLATELET VOLUME 10.8 fL (7.4-10.4); MONOCYTES 6.4 % (2-11); NEUTROPHILS 76.2 % (40-80); RBC 4.19 10x6/uL (4.20-6.10); RDW 13.8 % (11.5-14.5); WBC 8.3 10x3/uL (4.8-10.8)
[2016-07-26 10:15] LABS: PLATELET COUNT 179 10x3/uL (130-400)
[2016-07-26 10:29] LABS: CALC OSMOLALITY 276 mosm/kg (275-300); CALCIUM 9.3 mg/dL (8.5-10.1); CARBON DIOXIDE 22.6 mmol/L (21.0-32.0); CHLORIDE - SERUM 104 mmol/L (98-107); CREATININE - SERUM 1.2 mg/dL (0.6-1.3); GLUCOSE 168 mg/dL (74-106); POTASSIUM - SERUM 4.4 mmol/L (3.5-5.1); SODIUM 137 mmol/L (136-145); UREA NITROGEN 11 mg/dL (7-18); eGFR NON AFRICAN AMERICAN 62 mL/min (90-120)
[2016-07-26 10:53] LABS: CKMB 1.3 U/L (0.0-3.6); CREATINE KINASE 67 UL (21-232); TROPONIN-I < 0.017 ng/mL (0.000-0.060)
--- NOTE | 2016-07-26 11:30 | NUR ---
RIGHT GROIN -CDI, NO HEMATOMA OR BLEEDING AT SITE, SOFT TO TOUCH. DENIES PAIN. C/O SLIGHT SOB- DR LEUNG NOTIFIED- NO NEW ORDERS
--- NOTE | 2016-07-26 12:00 | NUR ---
NO CHANGE IN GROIN, AT SIDE, DENIES CHEST PAIN
[2016-07-26] MEDS ORDERED: PLAVIX75 MG PO (13:43)
--- NOTE | 2016-07-26 13:44 | NUR ---
RESP TX GIVEN, LUNG SOUNDS CLEAR- NO DISTRESS NOTED, PT FEELS BETTER. LAB HERE TO DRAW POST PROCEDURE BLOOD-DONE. EKG DONE
--- NOTE | 2016-07-26 15:49 | HP ---
PATIENT: MJ GUTIERREZ MEDICAL RECORD: [id number] ACCOUNT: [id number] LOCATION:[facility] : 33 ADMISSION DATE: 07/26/16 HISTORY AND PHYSICAL EXAMINATION 1. Angina. 2. Coronary artery disease. 3. Previous multivessel PTCA stent. 4. Atrial fibrillation, chronic. 5. Xarelto anticoagulation for atrial fibrillation. 6. Coronary artery disease, previous percutaneous transluminal coronary angioplasty stent. 7. Cardiomyopathy. 8. History of congestive heart failure. 9. Hypertension. 10. Hyperlipidemia. HISTORY OF PRESENT ILLNESS: The patient presents with anginal symptomatology. He has had a rapid escalation of his angina. He does have a history of multivessel coronary artery disease, last was a bare metal stent to the ramus intermedius in February of this year. PHYSICAL EXAMINATION: GENERAL APPEARANCE: Well-nourished, well-developed, appears stated age. Level of distress, comfortable. PSYCHIATRIC: Mental status, alert, normal affect. Orientation, oriented to time, place and person. EYES: Lids and conjunctiva, noninjected. No discharge, no pallor. ENT: Lips, teeth, gums, normal dentition. Oropharynx, no cyanosis, no pallor. NECK: Carotid arteries, bilateral normal upstroke, no bruits, no thrills. JUGULAR VEINS: No jugular venous pressure or distention. CERVICAL LYMPH NODES: Nontender, nonenlarged. THYROID: Not enlarged. Nontender. No nodules. LUNGS: Respiratory effort, unlabored. CHEST: Normal curvature. No thoracic deformity. No chest wall tenderness. Percussion, resonant. Auscultation, clear. No wheezes, no rales, no rhonchi. CARDIOVASCULAR: Precordial exam, nondisplaced. No heaves or pericardial thrills. Rate and rhythm, regular. Heart sounds, normal S1, normal S2. No S3, no gallop, no rub. Systolic murmur, not heard. Diastolic murmur, not heard. EXTREMITIES: No cyanosis, no edema. Peripheral pulses, full and equal in all extremities, except as noted. No bruits appreciated. ABDOMEN: Soft, nondistended. Normal aorta. No bruit. Nontender. No masses. Liver, nontender, no hepatomegaly. Spleen, nontender, no splenomegaly. MUSCULOSKELETAL: No joint tenderness. No joint swelling. No erythema. NEUROLOGICAL: Normal gait, normal strength, normal tone. SKIN: Warm and dry. REVIEW OF SYSTEMS: The patient reports easy bruising but reports no swollen glands. The patient reports no fever, no night sweats, no significant weight gain, no significant weight loss. No significant exercise tolerance. The patient reports no dry eyes, no irritation, no vision change. Patient reports no difficulty hearing and no ear pain. Patient reports no frequent nose bleeds or nose and sinus problems. Patient reports on arm pain on exertion. No shortness of breath while lying down. No history of heart murmur. Patient reports no cough, no wheezing or coughing up blood. Patient reports no HISTORY AND PHYSICAL [id number] MJ GUTIERREZ abdominal pain, no vomiting. Normal appetite. No diarrhea and not vomiting blood. No nausea and no constipation. Patient reports no incontinence. No difficulty urinating. No hematuria. No increased frequency. Patient reports no muscle aches. No weakness, no arthralgias, no back pain. No swelling of the extremities. Patient reports no abnormal mole, no jaundice, no rashes. Reports no loss of consciousness. No weakness and no numbness. No seizures, dizziness, or headaches. The patient reports no depression, no sleep disturbance, feeling safe in a relationship and no alcohol abuse. Patient reports on fatigue. Reports no runny nose or sinus pressure. No itching, no hives, and no frequent sneezing. CARDIOVASCULAR REVIEW OF SYSTEMS: Positive for nonhemorrhagic CVA greater than 5 years ago. Negative for cancer or malignancy. Negative for bleeding. Positive for history of congestive heart failure. Positive for PTCA stent. Positive for atrial fibrillation. OVERALL IMPRESSION: Angina, unstable in a rapidly progressive fashion, most likely has recurrent hemodynamically significant coronary artery disease. We will proceed with coronary angiography. Further care depends upon the findings of the angiography. TRANSINT:[id number] Voice Confirmation ID: [id number] DOCUMENT ID: [id number] ANITRA LEUNG MD at 1549 CC: [id number] DICTATION DATE: 07/26/16 1032 VEGETABLE TIER: 07/26/16 1122 REG [facility] [address] [place] [address]
--- NOTE | 2016-07-26 15:49 | OP ---
PATIENT NAME: MJ GUTIERREZ MEDICAL RECORD: [id number] :33 LOCATION:D.CAT ADMISSION DATE: SURGEON: ANITRA LEUNG MD DATE OF OPERATION: 07/26/2016 PROCEDURES: 1. PTCA stent, ramus intermedius. 2. Left heart catheterization. 3. Selective coronary angiography. 4. Left ventriculogram. PROCEDURE IN DETAIL: After informed consent was obtained and after detailed explanation of risks, benefits as well as alternative therapies, the patient elected to proceed with angiogram and angioplasty. The right femoral area was prepped and draped in normal sterile fashion. The right femoral artery was cannulated via modified Seldinger technique with placement of 6-Zambian sheath. All catheters exchanged through this sheath. FINDINGS: The left ventriculogram was performed in the standard 30-degree AMADO view, reveals global hypokinesis, ejection fraction 25%-30%. This is unchanged. SELECTIVE CORONARY ANGIOGRAPHY: 1. Left main has no significant angiographic disease. 2. Left anterior descending has previously placed stents, these are widely patent with no significant restenosis. No disease elsewise throughout the LAD or its branches. 3. Left circumflex, ramus intermedius has a previously placed bare-metal stent in the proximal vessel. Just after this, there is 90% stenosis. This stenosis is an 8-mm stenosis in a 2.25 diameter vessel at that point. There is NICOLA 3 flow. 4. The left circumflex has moderate irregularities, but no flow-limiting stenosis. 5. Right coronary has moderate irregularities, but no flow-limiting stenosis. PTCA STENT OF THE RAMUS INTERMEDIUS: Initially, we tried to cover this with a 2.5 x 14 mm BioFreedom stent and this would not go. The lesion was at the ostium, but it was ballooned with a 2.5 balloon at ____ BioFreedom stent was then advanced into the lesion secondary to the initial stent being dropped out of the sterile field and becoming sterile. OVERALL IMPRESSION: Successful PTCA stent of the left circumflex, ramus intermedius going from 90% initial stenosis to 0% residual stenosis with NICOLA 3 flow at the end of the case. TRANSINT:[id number] Voice Confirmation ID: [id number] DOCUMENT ID: [id number] ANITRA LEUNG MD at 1549 CC: [id number] DICTATION DATE: 07/26/16 1105 CAFE AIDE: 07/26/16 1403 REG [facility] [address] [place] [id number]
== END 2016-07-26 15:00 | disposition home or self-care (01) ==
LOC: D.CATH 09:13
PROVIDERS: Internal Medicine Interventional Cardiology
DX: I25.119 Atherosclerotic heart disease of native coronary artery with unspecified angina pectoris (principal); Z00.6 Encounter for examination for normal comparison and control in clinical research program; Z95.5 Presence of coronary angioplasty implant and graft; I48.2 Chronic atrial fibrillation; Z79.01 Long term (current) use of anticoagulants; I42.9 Cardiomyopathy, unspecified; E78.5 Hyperlipidemia, unspecified; Z86.73 Personal history of transient ischemic attack (TIA), and cerebral infarction without residual deficits; I11.0 Hypertensive heart disease with heart failure; I50.9 Heart failure, unspecified; Z01.812 Encounter for preprocedural laboratory examination
CPT/HCPCS: 93458; C9600

== ENCOUNTER → 2016-10-12 19:43 | Outpatient (CLI) | payer MEDICARE, BC ==
[2016-07-26 09:36] VITALS: BMI 31.2
== END | disposition home or self-care (01) ==
LOC: D.SLEEP 08:00
DX: G47.33 Obstructive sleep apnea (adult) (pediatric) (principal)

== ENCOUNTER 2016-11-08 08:04 | Outpatient (CLI) | payer MEDICARE, BC ==
[~2016-11-08] VITALS: Ht 182.9 cm; Wt 100.0 kg
--- NOTE | ~2016-11-08 | HEMODYNAMI ---
PATIENT:MJ GUTIERREZ MEDICAL RECORD: [id number] : 33 LOCATION:D.CAT ADMISSION DATE: 11/08/16 Generatedon:11/08/201610:13 Patient name: MJ GUTIERREZ Patient #: [id number] SSN: [id number] : 1935 Date of study: 11/08/2016 Page: Of Hemodynamic Procedure Report Patient Data Patient Demographics Procedure consent was obtained First Name: MJ Gender: Male Last Name: MATT : 1935 Middle Initial: L Age: 81 year(s) Patient #: [id number] Race: SSN: [id number] Additional ID: [id number] Contact details Address: [address] [place] [address] State: [place] City: [place] Zip code: [address] Past Medical History Allergies: No known allergies Admission Admission Data Admission Date: 11/08/2016 Admission Time: 8:04 Arrival Date: 11/08/2016 Arrival Time: 0:00 Height (in.): 72 BSA: 2.28 (m2) Height (cm.): 182.88 BMI: 31.74 (kg/m2) Weight (lbs.): 234 Weight (kg.): 106.14 Procedure Procedure Types Cath Procedure Diagnostic Procedure [facility] w/Coronaries PCI Procedure PTCA Initial Miscellaneous Procedures Moderate Sedation up to 15 minutes Procedure Description Procedure Date Procedure Date: 11/08/2016 Procedure Start Time: 9:54 Procedure End Time: 10:08 Procedure Staff Name Function Keith Grider MD Performing Physician Hoa Gonzales RT Scrub Anusha White RN Nurse Leonidas Wise RN Solid Die Cutter Lisa Nevarez RT Monitor Procedure Data Cath Procedure Fluoroscopy Diagnostic fluoroscopy Total fluoroscopy Time: 2.8 time: 2.8 min min Diagnostic fluoroscopy Total fluoroscopy dose: 507 dose: 507 mGy mGy Contrast Material Contrast Material Type Amount (ml) Isovue 300 84 Entry Location Entry Primary Successful Side Size Upsize Upsize Entry Closure Succes sful Closure Location (Fr) 1 (Fr) 2 (Fr) Remarks Device Remarks Femoral Right 5 Fr 6 Fr Exoseal artery Short Estimated blood loss: 10 ml Diagnostic catheters Device Type Used For End Catheter Placement Cordis 5Fr Pigtail Procedure Catheter (MP) Cordis 5Fr JL 4.0 Procedure Catheter (MP) Cordis 5Fr 3DRC Catheter Procedure (MP) Procedure Complications No complications Procedure Medications Medication Administration Route Dosage Oxygen NC 2 l/min Lidocaine 2% added to field 20 Heparin Flush Bag added to field 2 bags (1000units/500ml NS) 0.9% NaCl I.V. 100 ml/hr Benadryl I.V. 50 mg Versed I.V. 1 mg Fentanyl I.V. 50 mcg Heparin Bolus I.V. 4000 units Integrilin (Bolus I.V. 9 ml 2mg/ml) Plavix P.O. 600 mg Hemodynamics Rest BSA: 2.28 (m2) O2 Consumption: Estimated: 250.28 (ml/min) O2 Consumption indexed : Estimated:109.77 (ml/min/m) Heart Rate: 59 (bpm) Snapshots Pre Cath Intra NCS Post Cath Vital Signs Time Heart Resp SPO2 NIBP (mmHg) Rhythm Pain Sedation Rate (ipm) (%) Status Level (bpm) 9:45:33 55 18 93 146/87(123) A-Fib 0 (11) 10(A) , No pain 9:49:53 62 13 95 155/91(124) A-Fib 0 (11) 10(A) , No pain 9:55:06 53 14 94 132/80(107) A-Fib 0 (11) 10(A) , No pain 9:59:20 53 14 93 128/72(112) A-Fib 0 (11) 9(A) , No pain 10:03:34 62 16 93 123/74(93) A-Fib 0 (11) 9(A) , No pain 10:07:48 53 15 93 116/70(91) A-Fib 0 (11) 10(A) , No pain Medications Time Medication Route Dose Verified Delivered Reason Notes Effectiveness by by 9:49:16 Oxygen NC 2 Keith Tavares used for l/min Cheo White dba 9:49:23 Lidocaine 2% added 20ml Keith Parker for local to vial Cheo Grider MD anesthetic field 9:49:30 Heparin Flush added 2 Keith Parker used for Bag to bags Cheo Grider MD procedure (1000units/500ml field NS) 9:49:39 0.9% NaCl I.V. 100 Keithpao Regaladoie Per physician ml/hr Cheo White RN 9:49:48 Benadryl I.V. 50 mg Keith Tavares used for Cheo White RN procedure 9:54:13 Versed I.V. 1 mg Keith Tavares for sedation Cheo White RN 9:54:19 Fentanyl I.V. 50 Keith Buffie for sedation mcg Cheo White RN 10:00:35 Heparin Bolus I.V. 4000 Keith Regaladoie for verifi ed units Cheo White RN anticoagulation with dr grider 10:03:13 Integrilin I.V. 9 ml Keith Regaladoie for wasted 1 (Bolus 2mg/ml) Cheo White RN anticoagulation ml of vial 10:12:23 Plavix P.O. 600 Keith Tavares for mg Cheo White RN antiplatelet therapy Procedure Log Time Note 9:23:41 Patient Height : 182.88 inches 9:23:48 Patient Weight : 106.14 lbs 9:23:49 Arrival Date: 11/08/2016 12:00:00 AM 9:24:50 Diagnostic Cath status Elective 9:24:53 Leonidas Wise RN sent for patient. Start room use. 9:24:54 Time tracking: Regular hours 9:24:58 Plan of Care:Hemodynamics will remain stable., Cardiac rhythm will remain stable., Comfort level will be maintained., Respiratory function will remain adequate., Patient/ family verbilizes understanding of procedure., Procedure tolerated without complication., Recovers from procedure without complications.. 9:25:06 Patient received from Pre/Post Procedure Room to CCL 3 Alert and oriented. Tansferred to table in Supine position. 9:44:18 Warm blankets applied, and america hugger turned on for patient comfort. 9:44:19 Correct patient and procedure confirmed by team. 9:44:21 Signed procedure consent form obtained from patient. 9:44:22 ECG and BP/O2 sat monitors applied to patient. 9:44:23 Vital chart was started 9:44:24 Baseline sample Acquired. 9:44:39 Rhythm: atrial fibrillation 9:44:41 Full Disclosure recording started 9:45:34 H&P Date Dictated: 11/08/2016 Within 30 days and on chart., H&P Addendum completed by physician on day of procedure. (MUST COMPLETE FOR ALL OUTPATIENTS). 9:45:36 Pre-procedure instructions explained to patient. 9:45:37 Family in waiting room. 9:45:39 Patient NPO since Midnight. 9:45:48 Patient allergic to No known allergies 9:45:51 Is the patient allergic to Iodine/contrast media? No. 9:45:53 Is patient on blood thinner?Yes 9:46:14 Patient diabetic? No. 9:46:19 Snore? Yes 9:46:20 Sleep apnea? No 9:46:34 IV patent on arrival in left forearm with 0.9% NaCl at [facility]. 9:46:41 Lab results completed and on chart. 9:46:44 Right groin area was prepped with chlora-prep and draped in sterile fashion 9:46:45 Alarms reviewed by R. N. 9:46:45 Sharps counted by scrub and verified by R.N. 9:46:46 Physician paged 9:46:47 Physician arrived 9:48:02 Use device set Femoral Dx 9:49:16 Oxygen 2 l/min NC was administered by Anusha White RN; used for procedure; 9:49:23 Lidocaine 2% 20ml vial added to field was administered by Keith Grider MD; for local anesthetic; 9:49:30 Heparin Flush Bag (1000units/500ml NS) 2 bags added to field was administered by Keith Grider MD; used for procedure; 9:49:39 0.9% NaCl 100 ml/hr I.V. was administered by Anusha White RN; Per physician; 9:49:44 Acist Syringe opened to sterile field. 9:49:44 Bag Decanter opened to sterile field. 9:49:45 Medline Cath Pack opened to sterile field. 9:49:45 Terumo 5Fr [place] Sheath opened to sterile field. 9:49:48 Benadryl 50 mg I.V. was administered by Anusha White RN; used for procedure; 9:49:48 St Yoseph 260cm J .035 wire opened to sterile field. 9:49:50 Acist Hand Control opened to sterile field. 9:49:50 Acist Manifold opened to sterile field. 9:49:51 Diagnostic Infinity 5Fr Multipack catheter opened to sterile field. 9:49:51 Tegaderm 4 x 4 opened to sterile field. 9:49:52 Cook 18G 7cm Percutaneous Entry needle opened to sterile field. 9:50:37 --------ALL STOP TIME OUT------ 9:50:38 Final Timeout: patient, procedure, and site verified with staff and physician. All members of the team are in agreement. 9:50:40 Right groin site verified by team. 9:50:43 Physical assessment completed. ASA score P 2 - A patient with mild systemic disease as per Keith Grider MD. 9:50:46 Sedation plan: IV Moderate Sedation Versed, Fentanyl 9:54:13 Versed 1 mg I.V. was administered by Anusha White RN; for sedation; 9:54:19 Fentanyl 50 mcg I.V. was administered by Anusha White RN; for sedation; 9:54:38 Procedure started. 9:54:52 Local anesthetic to right femoral artery with Lidocaine 2% by Keith Grider MD.INITIAL ACCESS ONLY 9:55:05 A 5 Fr sheath was inserted into the Right Femoral artery 9:55:41 A Cordis 5Fr Pigtail Catheter (MP) was advanced over the wire and used for Procedure. 9:56:19 EF : 30 % 9:56:26 Catheter removed. 9:56:47 A Cordis 5Fr JL 4.0 Catheter (MP) was advanced over the wire and used for Procedure. 9:57:22 LCA angiography performed. 9:58:15 Catheter removed. 9:58:23 A Cordis 5Fr 3DRC Catheter (MP) was advanced over the wire and used for Procedure. 9:58:51 RCA angiography performed. 9:59:18 Catheter removed. 9:59:19 Proceeding to intervention. 9:59:46 Sheath upsized to a 6 Fr Short. 10:00:35 Heparin Bolus 4000 units I.V. was administered by Anusha White RN; for anticoagulation; verified with dr grider 10:01:18 6 Fr XBLAD 3.5 guide catheter was inserted over the wire 10:01:27 Cordis 6FR XBLAD 3.5 guide catheter opened to sterile field. 10:01:28 Terumo 6Fr Dunedin Sheath opened to sterile field. 10:01:29 Merit BasixCompak Inflation Kit opened to sterile field. 10:01:30 Wang Whisper J 300cm 0.014 guide wire opened to sterile field. 10:01:41 Whisper wire advanced. 10:03:13 Integrilin (Bolus 2mg/ml) 9 ml I.V. was administered by Anusha White RN; for anticoagulation; wasted 1 ml of vial 10:04:08 Inflation number: 1 A Grapevine Sci [place] 2.0 X 15 balloon was prepped and advanced across the 1st Diag, then inflated to 17 ELDER for 0:13 (min:sec). 10:04:20 Inflation number: 2 The Grapevine Sci [place] 2.0 X 15 balloon was reinflated across the 1st Diag, to 17 ELDER for 0:07 (min:sec). 10:04:46 Inflation number: 3 The Grapevine Sci [place]ogee 2.0 X 15 balloon was reinflated across the 1st Diag, to 17 ELDER for 0:13 (min:sec). 10:05:27 Balloon removed over the wire. 10:05:28 Wire removed. 10:05:29 Guide catheter removed. 10:05:39 Cordis 6Fr Exoseal opened to sterile field. 10:05:57 Sheath removed intact; hemostasis achieved with Exoseal to the Right Femoral artery. 10:06:19 Procedure ended.(Physican Out) 10:06:32 Fluoroscopy time 02.80 minutes. 10:06:38 Fluoroscopy dose: 507 mGy 10:06:38 Flurop Dose total: 507 10:06:42 Contrast amount:Isovue 300 84ml. 10:06:44 Sharps counted by scrub and verified by R.N. 10:06:48 Insertion/operative site no bleeding no hematoma. 10:07:07 Post-op/insertion site Right Femoral artery dressed using a 4 x 4 and Tegaderm. 10:07:08 Post Procedure Pulses reassessed and unchanged 10:07:14 Post-procedure physical assessment completed. ASA score P 2 - A patient with mild systemic disease as per Keith Grider MD. 10:07:27 Post procedure rhythm: unchanged. 10:07:30 Estimated blood loss: 10 ml 10:07:31 Post procedure instruction explained to patient.Patient verbalizes understanding. 10:07:43 Procedure type changed to Cath procedure, Diagnostic procedure, LHC, LHC w/Coronaries, PCI procedure, PTCA Initial, Miscellaneous Procedures, Moderate Sedation up to 15 minutes 10:07:46 Procedure and supply charges have been captured, reviewed, submitted and are correct. 10:08:09 Procedure Complication : No complications 10:08:11 Vital chart was stopped 10:08:12 See physician's report for complete and final results. 10:08:14 Report given to Pre/Post Procedure Room. 10:08:17 Patient transfered to Pre/Post Procedure Room with Stretcher. 10:08:19 Procedure ended. 10:08:19 Full Disclosure recording stopped 10:08:22 End room use (Document Last) 10:08:33 ACC-PCI Only Patient was given prescriptions, or instructed by Keith Grider MD to start/continue the following medications upon discharge: Plavix 10:12:23 Plavix 600 mg P.O. was administered by Anusha White RN; for antiplatelet therapy; Intervention Summary Intervention Notes Time ActionType Lesion and Equipment Action# Pressure Duration Attributes Used 10:04:08 Inflate 1st Diag Grapevine 1 17 00:13 balloon Sci [place]ogee 2.0 X 15 balloon 10:04:20 Reinflate 1st Diag Grapevine 2 17 00:07 balloon Sci [place] 2.0 X 15 balloon 10:04:46 Reinflate 1st Diag Grapevine 3 17 00:13 balloon Sci [place] 2.0 X 15 balloon Device Usage Item Name Manufacture Quantity Catalog Number Hospital Part Current Min imal Lot# / Charge Number Stock Stock Serial# Code Acist Acist 1 [id number] 729115 848085 20 Syringe Medical Systems Inc Bag Decanter Microtek 1 2002S 137365 98009 879304 5 Medical Inc. Medline Cath Cardinal 1 [id number] 476818 76320 006928 5 Pack Health Terumo 5Fr Terumo 1 [id number] 223742 062048 890247 [address] St Yoseph 1 166882 808350 626576 871738 30 260cm J .035 wire Acist Hand Acist 1 34782 587602 486917 655590 5 Control Medical Systems Inc Acist Acist 1 91639 100243 297995 695015 5 Manifold Medical Systems Inc Diagnostic Cardinal 1 [id number] 257781 63999 350253 30 Infinity 5Fr Health Multipack catheter Tegaderm 4 x 3M 1 1626W 030789 898751 831080 5 4 Cook 18G 7cm [facility] 1 [id number] 520268 64196 963007 5 Percutaneous Entry needle Cordis 5Fr Cardinal 1 541307 5 Pigtail Health Catheter (MP) Cordis 5Fr Cardinal 1 570189 5 JL 4.0 Health Catheter (MP) Cordis 5Fr Cardinal 1 201848 5 3DRC Health Catheter (MP) Cordis 6FR Cardinal 1 [id number] 465617 652638 503210 10 XBLAD 3.5 Health guide catheter Terumo 6Fr Terumo 1 XSW983 674916 901441 754847 40 Dunedin Sheath Merit Merit 1 TE4129 433123 714908 807047 15 BasixCompak Medical Inflation Kit Wang Wang 1 [id number] 506576 194038 200944 5 Whisper J Vascular 300cm 0.014 guide wire Grapevine Sci Grapevine 1 [id number] 472470 102025 271031 1 [id number] Muscogee 2.0 Scientific X 15 balloon Cordis 6Fr Cardinal 1 EX600 791844 091145 449324 10 [facility] PolyMedix Signature Audit Iona Stage Time Signature Unsigned Intra-Procedure 11/08/2016 Lisa Nevarez 10:12:54 AM RT(R) Signatures Monitor : Lisa Nevarez Signature : RT Date : Time : [facility] [address] [place] [address]
[2016-11-08 08:28] VITALS: BP 140/89; Ht 182.9 cm; Wt 100.0 kg
[2016-11-08 08:52] LABS: BASOPHILS 0.1 % (0-2); HEMATOCRIT 40.8 % (42.0-54.0); IMMATURE GRANULOCYTES 0.1 % (0-5); LYMPHOCYTES 11.9 % (15-50); MCH 32.1 pg (26.0-34.0); MCHC 34.3 g/dL (31.0-37.0); MCV 93.6 fL (80.0-100.0); MEAN PLATELET VOLUME 10.1 fL (7.4-10.4); MONOCYTES 6.1 % (2-11); NEUTROPHILS 78.8 % (40-80); PLATELET COUNT 167 10x3/uL (130-400); RBC 4.36 10x6/uL (4.20-6.10); RDW 13.6 % (11.5-14.5); WBC 7.7 10x3/uL (4.8-10.8)
[2016-11-08 09:06] LABS: ANION GAP 16.6 mmol/L (8-16); CALCIUM 8.9 mg/dL (8.5-10.1); CARBON DIOXIDE 20.7 mmol/L (21.0-32.0); CREATININE - SERUM 1.2 mg/dL (0.6-1.3); POTASSIUM - SERUM 4.3 mmol/L (3.5-5.1)
--- NOTE | 2016-11-08 10:15 | NUR ---
1015 RECIEVED TO ROOM VIA STRETCHER FROM EMERGENCY [facility] EMT WITH 6 FR EXOSEAL R/GROIN CDI NO BLEEDING NO HEMATOMA NOTED. HR 62 BP 143/80 CHEST PAIN IS DENIED. INSTRUCTED PATIENT TO KEEP HEAD FLAT ON PILLOW WITH RLE STRAIGHT
[2016-11-08] MEDS ORDERED: PLAVIX75 MG PO (10:26)
--- NOTE | 2016-11-08 10:34 | NUR ---
R/GROIN REMIANS CDI NO HEMATOMA NOTED. PULSES PRESENT AND MARKED. CHEST PAIN IS DENIED VSS
--- NOTE | 2016-11-08 10:45 | NUR ---
1045 VSS WITH R/GROIN CDI NO BLEEDING NO HEMATOMA NOTED. SANDWICH AND WATER TO BEDSIDE
--- NOTE | 2016-11-08 11:17 | NUR ---
6 FR EXOSEAL R/GROIN REMAINS CDI NO BLEEDING NO HEMATOMA NOTED. VSS WITH CHEST PAIN DENIED
--- NOTE | 2016-11-08 11:33 | NUR ---
PATIENT VOIDS 400 CC URINE TO COLLECTION. R/GROIN REMAINS CDI NO BLEEDING NO HEMATOMA NOTED
--- NOTE | 2016-11-08 11:45 | NUR ---
RESTING QUIETLY NO CHANGE IN ASSESSMENT
--- NOTE | 2016-11-08 12:20 | NUR ---
6 FR EXOSEAL R/GROIN CDI NO BLEEDING NO HEMATOMA NOTED. VSS WITH CHEST PAIN DENIED. PATIENT VISITING WITH FRIEND AT BEDSIDE
--- NOTE | 2016-11-08 13:15 | NUR ---
REPOSITIONED TO SITTING WITH HOB UP 30 DEGREES. R/GROIN REMAINS CDI NO BLEEDING NO HEMATOMA NOTED.
--- NOTE | 2016-11-08 13:28 | NUR ---
PIV REMOVED WITH PRESSURE HELD AND DRESSING APPLIED. CHEST PAIN IS DENIED. 6 FR EXOSEAL R/GROIN CDI NO BLEEDING NO HEMATOMA NOTED. VERBAL AND WRITTEN DISCHARGE GONE OVER WITH PATIENT AND BOTH VERBALIZED UNDERSTANDING. PATIENT UP TO GET DRESSED FOR DISCHARGE HOME
--- NOTE | 2016-11-08 13:47 | NUR ---
PATIENT UP TO BATHROOM WITH SLOW STEADY GAIT. CHEST PAIN DENIED WITH R/GROIN CDI. DISCHARGE INSTRUCTIONS GONE OVER AGAIN WITH PATIENT AND . LEFT VIA WC TO PARKING FOR TRANSPORT HOME
--- NOTE | 2016-11-10 12:22 | OP ---
PATIENT NAME: MJ GUTIERREZ MEDICAL RECORD: [id number] :33 LOCATION:D.CAT ADMISSION DATE: SURGEON: ANITRA LEUNG MD DATE OF OPERATION: 11/08/2016 PROCEDURES: 1. PTCA LAD diagonal. 2. Left heart catheterization. 3. Selective coronary angiography. 4. Left ventriculogram. INDICATION: Chest pain compatible with angina. PROCEDURE IN DETAIL: After informed consent was obtained and after detailed explanation of risks, benefits as well as alternative therapies, the patient elected to proceed with angiogram and angioplasty. The left femoral area was prepped and draped in normal sterile fashion. The right femoral artery was cannulated via modified Seldinger technique with placement of 6-Indian sheath. All catheters exchanged through this sheath. FINDINGS: Left ventriculogram was performed in standard 30-degree AMADO view, reveals depressed cardiac wall motion throughout all segments. Overall ejection fraction is 30%. This is, however, not a new finding. SELECTIVE CORONARY ANGIOGRAPHY: 1. Left main showed no significant angiographic disease. 2. Left anterior descending has previously placed stents in the LAD and LAD diagonal. The LAD is widely patent with no significant restenosis. The diagonal has 90% in-stent restenosis proximally. 3. Left circumflex has moderate irregularities, but no flow-limiting stenosis. 4. The right coronary has moderate irregularities, but no flow-limiting stenosis. PTCA OF THE LAD DIAGONAL: We used high pressure PTCA of the left anterior descending diagonal going to 17 atmospheres with a 2-0 balloon. Result was 0% residual stenosis. OVERALL IMPRESSION: Successful high pressure percutaneous transluminal coronary angioplasty for in-stent restenosis of the left anterior descending diagonal going from 90% initial stenosis to 0% residual stenosis. TRANSINT:[id number] Voice Confirmation ID: [id number] DOCUMENT ID: [id number] ANITRA LEUNG MD at 1222 CC: [id number] DICTATION DATE: 11/08/16 1010 ROLLER TURNER: 11/08/16 1635 DEP CLI 11/08/16 [facility] [address] [place] [address]
== END 2016-11-08 13:49 ==
LOC: D.CATH 08:04
PROVIDERS: Internal Medicine Interventional Cardiology
DX: I25.119 Atherosclerotic heart disease of native coronary artery with unspecified angina pectoris (principal); I10 Essential (primary) hypertension; E78.5 Hyperlipidemia, unspecified; R06.09 Other forms of dyspnea; I42.9 Cardiomyopathy, unspecified; Z01.812 Encounter for preprocedural laboratory examination

== ENCOUNTER 2016-11-17 18:22 | Inpatient (IN) | payer MEDICARE, BC ==
[~2016-11-17] VITALS: Ht 182.9 cm; Wt 101.1 kg
--- NOTE | ~2016-11-17 | EC ---
PATIENT:MJ GUTIERREZ DATE OF SERVICE: 11/17/16 SEX: M MEDICAL RECORD: [id number] DATE OF : 34 LOCATION:D.M2 D.213 AGE OF PATIENT: 81 ADMISSION DATE: 11/17/16 REFERRING PHYSICIAN: INTERPRETING PHYSICIAN: ANITRA GRIDER MD ECHOCARDIOGRAM REPORT ECHO CHARGES 4 ECHO COMPLETE CLINICAL DIAGNOSIS: CHF ECHOCARDIOGRAPHIC MEASUREMENTS (adult normal given) AC root (d.<3.7cm) 3.4 cm LV Septum d (<1.2 cm> 1.2 cm Valve Excursion 0.9 cm LV Septum (systole) 1.7 cm Left Atria (s.<4.0cm> 3.6 cm LVPW d(<1.2cm) 1.2 cm RV (d.<2.3cm) 2.5 cm LVPW (sytole) 1.7 cm LV diastole(<5.6CM) 5.8 cm MV E-F(>70mm/sec) cm LV systole 4.3 cm LVOT Diameter 1.9 cm MV exc.(>10mm) cm Est.ejection fraction (50-75%) % Pericardial Effusion N DOPPLER: LVIT cm/sec A cm/sec E 100 cm/sec LA cm/sec RVSP 44.0 mmHg LVOT 88.0 cm/sec AOP1/2T 650.0m/s Asc. Ao 167 cm/sec RVOT 69.0 cm/sec RA cm/sec PA 77.0 cm/sec AV Gradient Peak 11.1 mmHg AV Mean 5.2 mmHg AV Area 1.5 cm MV Gradient Peak 4.9 mmHg MV Mean 1.5 mmHg MV Area cm COMMENTS: Wildlife Science Professor: 1 LESLYE MARIANNA Steam Shovel Operating Engineer: 1 Dr. Grider TAPE# PACS DATE OF SERVICE: 11/18/2016 FINDINGS: 1. Left ventricular chamber size is mildly dilated. Left ventricular systolic function is severely depressed. Overall ejection fraction 20%. 2. Left atrium is within normal limits at 3.6 cm. Right atrium and right ventricular chamber sizes are mild to moderately dilated. 3. Valvular structures have normal structure and motion. 4. Doppler interrogation reveals ehjg-lm-[id number] aortic insufficiency, moderate mitral regurgitation, mild triscuspid regurgitation. No other valvular ECHOCARDIOGRAM REPORT [id number] MJ GUTIERREZ insufficiency or stenosis. Pulmonary systolic pressure is mildly elevated estimated at 44 mmHg. 5. No evidence of pericardial effusion or left ventricular thrombus. TRANSINT:[id number] Voice Confirmation ID: [id number] DOCUMENT ID: [id number] ANITRA GRIDER MD CC: [id number] DICTATION DATE: 11/21/16 1038 FIBREGLASS GUN HAND: 11/21/16 1149 ADM IN [facility] [address] [place] [address]
--- NOTE | ~2016-11-17 | ST ---
PATIENT:MJ GUTIERREZ MEDICAL RECORD: [id number] SEX: M LOCATION:D. D.213 ORDER #: ADMISSION DATE: 11/17/16 AGE OF PATIENT: 81 REFERRING PHYSICIAN: INTERPRETING PHYSICIAN: MIKAELA BACON MD DATE OF SERVICE: 11/23/2016 PROCEDURE: Nuclear stress test via Lexiscan. PROCEDURE IN DETAIL: The patient was brought into the nuclear lab where he was placed on the nuclear exam table in the supine position. The patient then had 0.2 mg of Lexiscan injected via the peripheral IV. The patient tolerated the procedure without any complications. The patient had a sestamibi injected twice, once at rest and once at stress. The rest test was at 10:05 a.m. The stress was at 11:48 a.m. The patient had 12.9 mCi at rest and 31.9 mCi sestamibi at stress. The patient tolerated the procedure without complications. The EKG showed an atrial fibrillation with a bundle branch block at baseline. Heart rate initially was in the 60s and then peaked in the mid 80s. After injection, the patient did experience slight discomfort or slight pressure sensation with the injection, was very mild. Upon stress imaging, which show a mild mostly fixed inferior defect with a partially reversible apical segment. The wall motion analysis showed that there was asynchronous wall motion with inferior and inferior apical dyskinesis with an overall ejection fraction of 34%. IMPRESSION: Mostly fixed defect with mild apical reversibility in a patient with an ischemic cardiomyopathy, ejection fraction of 34%. RECOMMENDATIONS: Continue aggressive medical management, heart failure management as well as aggressive risk factor modification. TRANSINT:[id number] Voice Confirmation ID: [id number] DOCUMENT ID: [id number] MIKAELA BACON MD CC: [id number] DICTATION DATE: 11/23/16 0850 MANAGER OF SUPPLY CHAIN: 11/23/16 2353 DIS IN 11/23/16 [facility] [address] [place] [address]
[2016-11-17 19:41] LABS: BASOPHILS 0.2 % (0-2); HEMOGLOBIN 13.3 g/dL (13.5-17.5); IMMATURE GRANULOCYTES 0.2 % (0-5); LYMPHOCYTES 13.1 % (15-50); MCH 31.8 pg (26.0-34.0); MCHC 34.1 g/dL (31.0-37.0); MCV 93.3 fL (80.0-100.0); MEAN PLATELET VOLUME 10.1 fL (7.4-10.4); MONOCYTES 5.8 % (2-11); NEUTROPHILS 77.7 % (40-80); PLATELET COUNT 167 10x3/uL (130-400); RBC 4.18 10x6/uL (4.20-6.10); WBC 8.2 10x3/uL (4.8-10.8)
[2016-11-17 20:05] LABS: ALBUMIN 3.7 g/dL (3.4-5.0); ANION GAP 17.9 mmol/L (8-16); BILIRUBIN - TOTAL 0.68 mg/dL (0.2-1.3); CALCIUM 8.9 mg/dL (8.5-10.1); CARBON DIOXIDE 19.3 mmol/L (21.0-32.0); CREATININE - SERUM 1.2 mg/dL (0.6-1.3); POTASSIUM - SERUM 4.2 mmol/L (3.5-5.1); PROTEIN - SERUM 7.1 g/dL (6.4-8.2)
[2016-11-17 20:11] LABS: MAGNESIUM - SERUM 1.8 mg/dL (1.8-2.4)
[2016-11-17 21:03] LABS: INR 1.48 (0.85-1.17); PROTIME 17.9 SECONDS (11.6-15.0)
[2016-11-17 21:04] LABS: D-DIMER-QUANTITATIVE < 0.27 ug/mLFEU (0.20-0.54)
--- NOTE | 2016-11-17 22:19 | NUR ---
PATIENT ARRIVED FROM THE ER VIA WHEELCHAIR ALERT AND ORIENTED TO ROOM AND CALL LIGHT. SPOUSE IS AT BEDSIDE. 20 G SALINE LOCKED RIGHT FOREARM PATENT. STATES HUNGRY, SANDWICH TRAY GIVEN. CALL LIGHT IN REACH.
[2016-11-18 04:00] VITALS: BP 109/55
--- NOTE | 2016-11-18 07:30 | NUR ---
REPORT RECIEVED. PT RESTING QUIELTY, RR EVEN AND UNLAOBRED. ASSESSMENT PERFORMED. PT DENIES NEEDS AT THIS TIME, ALERT AND ORIENTED X4. WILL CTM.
--- NOTE | 2016-11-18 10:01 | NUR ---
AM MEDS GIVEN AT THIS TIME. INFORMED PT THAT HE IS HAVING AN ECHO SOMETIME TODAY. PT UP TO SIDE OF BED, DENIES ANY NEED AT THIS TIME. CALL LIGHT IN REACH, NAD NOTED, WILL CONTINUE TO MONITOR.
[2016-11-18 12:00] VITALS: BP 153/82
[2016-11-18 14:24] VITALS: Ht 182.9 cm; Wt 101.1 kg
--- NOTE | 2016-11-18 15:20 | NUR ---
PT'S AT BEDSIDE, UPDATED HER ON PLAN OF CARE FOR PT. PT IN BED, DENIES ANY NEEDS AT THIS TIME. EMPTIED URINAL, NAD NOTED, CALL LIGHT IN REACH, WILL CONTINUE TO MONITOR.
[2016-11-18 17:54] VITALS: BP 123/71
--- NOTE | 2016-11-18 19:45 | NUR ---
PT IN BED WATCHING TELEVISION. DENIES NEEDS AT THIS TIME WILL CONTINUE TO MONITOR
[2016-11-18 20:00] VITALS: BP 102/76
--- NOTE | 2016-11-19 00:22 | NUR ---
PT RESTING WITH EYES CLOSED. RESP EVEN AND REGULAR. SR UP X2, CALL LIGHT WITHIN REACH.
[2016-11-19 04:00] VITALS: BP 120/66
[2016-11-19 06:24] LABS: BASOPHILS 0.2 % (0-2); EOSINOPHILS 3.6 % (0-7); HEMATOCRIT 41.1 % (42.0-54.0); HEMOGLOBIN 14.4 g/dL (13.5-17.5); IMMATURE GRANULOCYTES 0.3 % (0-5); LYMPHOCYTES 13.5 % (15-50); MCH 32.4 pg (26.0-34.0); MCV 92.4 fL (80.0-100.0); MEAN PLATELET VOLUME 10.7 fL (7.4-10.4); MONOCYTES 6.1 % (2-11); NEUTROPHILS 76.3 % (40-80); PLATELET COUNT 184 10x3/uL (130-400); RBC 4.45 10x6/uL (4.20-6.10); WBC 8.9 10x3/uL (4.8-10.8)
[2016-11-19 06:49] LABS: ANION GAP 14.8 mmol/L (8-16); CARBON DIOXIDE 23.7 mmol/L (21.0-32.0); CREATININE - SERUM 1.3 mg/dL (0.6-1.3)
[2016-11-19 06:50] LABS: POTASSIUM - SERUM 3.5 mmol/L (3.5-5.1)
--- NOTE | 2016-11-19 07:48 | NUR ---
AM ROUNDS - PT IS AWAKE IN BED AT THIS TIME. PT IS ON 2L O2 VIA NC. NON SKID SOCKS ON. CALL ESTEVES IN USE/REACH.. SIDE RAILS UP X2. NO YELLOW BAND. IV TO RIGHT FA, SL. BED AT LOWEST POSITION. SIDE RAILS UP X2. WILL CONTINUE TO MONITOR.
[2016-11-19 08:10] VITALS: BP 140/78
[2016-11-19 12:32] VITALS: BP 131/84
--- NOTE | 2016-11-19 15:13 | NUR ---
PT IN BED WITH NO NEEDS AT THIS TIME. WILL CONTINUE TO MONITOR
[2016-11-19 15:39] VITALS: BP 123/85
--- NOTE | 2016-11-19 19:43 | NUR ---
PT IN BED RESTING. AROUSES TO VOICE. DENIES NEEDS AT THIS TIME WILL CONTINUE TO MONITOR.
[2016-11-19 20:32] VITALS: BP 103/70
[2016-11-20 01:18] VITALS: BP 106/69
[2016-11-20 05:55] VITALS: BP 116/77
[2016-11-20 06:10] LABS: BASOPHILS 0.2 % (0-2); EOSINOPHILS 4.1 % (0-7); HEMATOCRIT 41.8 % (42.0-54.0); HEMOGLOBIN 14.7 g/dL (13.5-17.5); IMMATURE GRANULOCYTES 0.2 % (0-5); LYMPHOCYTES 15.1 % (15-50); MCH 32.3 pg (26.0-34.0); MCHC 35.2 g/dL (31.0-37.0); MCV 91.9 fL (80.0-100.0); MEAN PLATELET VOLUME 10.2 fL (7.4-10.4); MONOCYTES 7.7 % (2-11); NEUTROPHILS 72.7 % (40-80); PLATELET COUNT 191 10x3/uL (130-400); RBC 4.55 10x6/uL (4.20-6.10); RDW 13.8 % (11.5-14.5); WBC 8.2 10x3/uL (4.8-10.8)
[2016-11-20 06:28] LABS: ANION GAP 14.6 mmol/L (8-16); CARBON DIOXIDE 23.9 mmol/L (21.0-32.0); CREATININE - SERUM 1.3 mg/dL (0.6-1.3); POTASSIUM - SERUM 3.5 mmol/L (3.5-5.1)
[2016-11-20 08:05] VITALS: BP 107/69
[2016-11-20 15:09] VITALS: BP 91/67
--- NOTE | 2016-11-20 20:00 | NUR ---
PT RESTING IN BED. ALERT/ORIENTED. PLEASANT TO CONVERSE WITH. O2 @ 2L/NC WITH NONLABORED RESPIRATIONS. SALINE LOCK TO RFA. TELEMETRY IN PLACE. PT REQUESTED AND WAS GIVEN A CUP OF COFFEE AT THIS TIME. SEE SHIFT ASSESSMENT. CPOC.
[2016-11-20 20:35] VITALS: BP 128/69
--- NOTE | 2016-11-20 23:33 | NUR ---
HS MEDS GIVEN. PT RESTING WITH NO DISTRESS. CAF PER TELEMETRY. SALINE LOCK TO RFA. O2 @ 2L/NC. CPOC.
[2016-11-21 00:08] VITALS: BP 120/76
--- NOTE | 2016-11-21 02:46 | NUR ---
AWAKE, USING URINAL . NO OTHER NEEDS. CPOC.
[2016-11-21 04:37] VITALS: BP 120/68
[2016-11-21 05:15] LABS: BASOPHILS 0.3 % (0-2); EOSINOPHILS 4.3 % (0-7); HEMATOCRIT 42.8 % (42.0-54.0); IMMATURE GRANULOCYTES 0.4 % (0-5); LYMPHOCYTES 15.9 % (15-50); MCH 32.3 pg (26.0-34.0); MCV 92.2 fL (80.0-100.0); MEAN PLATELET VOLUME 10.3 fL (7.4-10.4); MONOCYTES 7.1 % (2-11); PLATELET COUNT 203 10x3/uL (130-400); RBC 4.64 10x6/uL (4.20-6.10); RDW 13.8 % (11.5-14.5); WBC 7.7 10x3/uL (4.8-10.8)
[2016-11-21 05:33] LABS: ANION GAP 15.5 mmol/L (8-16); CALCIUM 9.1 mg/dL (8.5-10.1); CREATININE - SERUM 1.4 mg/dL (0.6-1.3); POTASSIUM - SERUM 3.5 mmol/L (3.5-5.1)
--- NOTE | 2016-11-21 07:30 | NUR ---
RECIEVED REPORT ON PATIENT, PATIENT IS ALERT AND ORIENTED AT THIS TIME. PATIENT HAS A R FA IV THAT IS SL AT THIS TIME, PATIENT ON 2L/MIN VIA NC OF O2 WITH NAD NOTED AT THIS TIME. DR MENG AT BEDSIDE. PATIENT DENIES ANY NEEDS. CONTROLLED AFIB ON MONITOR WITH A RATE OF 63. CPOC
[2016-11-21 08:00] VITALS: BP 115/71
--- NOTE | 2016-11-21 09:45 | NUR ---
MORNING MEDICATIONS GIVEN PER ORDER. DENIES ANY NEEDS. CPOC
[2016-11-21 12:00] VITALS: BP 115/49
--- NOTE | 2016-11-21 12:00 | NUR ---
PATIENT SITTING ON SIDE OF BED, EATING LUNCH. DNIES ANY PAIN OR NEEDS. WILL CONT TO MONITOR. CPOC
--- NOTE | 2016-11-21 14:00 | NUR ---
PATIENT REQUESTING THAT DR LEUNG COME AND SEE PATIENT, THAT SHE TALKED TO THE CLINIC AND THEY STATED I NEEDED TO CALL HIM, PAGED DR LEUNG, HE STATED THAT PATIENT IS OKAY FOR DC WHEN DR MENG OKAYS FOR DC. AND THAT HE WILL FOLLOW UP WITH HIM IN CLINIC. CPOC. INFORMED .
--- NOTE | 2016-11-21 15:30 | NUR ---
PATIENT STATED THAT HIS WAS UNHAPPY WITH THE ANSWER WE GAVE HER, SO SHE CALLED DR LEUNG CLINIC AGAIN AND PATIENT HAS APPOINTMENT WITH DR LEUNG MONDAY AFTERNOON.
[2016-11-21 16:00] VITALS: BP 112/95
--- NOTE | 2016-11-21 17:54 | NUR ---
PATIENT SITTING ON SIDE OF BED EATING DINNER, DENIES ANY PAIN OR NEEDS. CPOC
--- NOTE | 2016-11-21 18:43 | NUR ---
PATIENT RESTING AT THIS TIME, NAD NOTED. DENIES ANY NEEDS. CPOC
[2016-11-21 19:00] VITALS: BP 120/67
--- NOTE | 2016-11-21 22:15 | NUR ---
SHIFT ASSESSMENT COMPLETE. PT IS LYING ON HIS BACK WITH NO SIGNS OF DISTRESS NOTED. HE STATES THAT HE IS TIRED AND THAT HE IS READY TO GO HOME TOMORROW. NC @ 2 L/MIN. S1S2 AUDIBLE, HR 69 CONTROLLED A-FIB. RR REGULAR AND UNLABORED, CLEAR LUNG SOUNDS THROUGHOUT ALL LOBES. ABD IS SOFT AND NONTENDER TO TOUCH. RADIAL AND PEDAL PULSES PALP. A&O X4. HE DENIES ANY REQUESTS. CALL LIGHT IN REACH. BED IN LOWEST POSITION. WILL CONT WITH POC.
--- NOTE | 2016-11-21 23:50 | NUR ---
PT RESTING ON L SIDE WITH NO SIGNS OF ACUTE DISTRESS NOTED. CALL LIGHT IN REACH. BED IN LOWEST POSITION. WILL CONT WITH POC.
[2016-11-22] VITALS: BP 107/60
--- NOTE | 2016-11-22 03:00 | NUR ---
PT SLEEPING PEACEFULLY AT THIS TIME WITH NO SIGNS OF DISTRESS. WILL CONT WITH POC.
--- NOTE | 2016-11-22 04:30 | NUR ---
REFILLED PT'S REFRESHMENTS. HE IS IN GOOD SPIRITS THIS MORNING WITH NO FURTHER REQUESTS. WILL CONT WITH POC.
[2016-11-22 04:32] VITALS: BP 106/59; BP 122/66
--- NOTE | 2016-11-22 05:30 | NUR ---
AM MEDS ADMINISTERED. NO REQUESTS AT THIS TIME. WILL CONT TO MONITOR.
[2016-11-22 05:35] LABS: BASOPHILS 0.3 % (0-2); HEMATOCRIT 41.2 % (42.0-54.0); HEMOGLOBIN 14.6 g/dL (13.5-17.5); IMMATURE GRANULOCYTES 0.3 % (0-5); LYMPHOCYTES 15.7 % (15-50); MCH 32.3 pg (26.0-34.0); MCHC 35.4 g/dL (31.0-37.0); MCV 91.2 fL (80.0-100.0); MEAN PLATELET VOLUME 10.5 fL (7.4-10.4); MONOCYTES 7.7 % (2-11); PLATELET COUNT 194 10x3/uL (130-400); RBC 4.52 10x6/uL (4.20-6.10); RDW 13.5 % (11.5-14.5)
[2016-11-22 06:25] LABS: CALCIUM 8.9 mg/dL (8.5-10.1); CARBON DIOXIDE 24.3 mmol/L (21.0-32.0); CREATININE - SERUM 1.3 mg/dL (0.6-1.3); POTASSIUM - SERUM 3.3 mmol/L (3.5-5.1)
--- NOTE | 2016-11-22 07:33 | NUR ---
RECIEVED REPORT ONPATIENT, PATIENT IS ALERT AND ORIENTED AT THIS TIME. PATIENT IS AFIB ON MONITOR WITH A RATE OF 75 AT THIS TIME. BBB IS ALSO NOTED. PATIENT ON 2L/MIN VIA NC. PATIENT HAS A R FA IV THAT IS SL AT THIS TIME. PATIENT DENIES ANY NEEDS AT THIS TIME WILL CONT TO MONITOR PATIENT. CPOC
[2016-11-22 08:48] VITALS: BP 121/77
[2016-11-22 09:39] LABS: CKMB 0.8 U/L (0.0-3.6); CREATINE KINASE 80 UL (21-232)
[2016-11-22 09:41] LABS: TROPONIN-I < 0.017 ng/mL (0.000-0.060)
--- NOTE | 2016-11-22 10:15 | NUR ---
PATIENTSITTING UP IN BED, DENIES ANY NEEDS AT THIS TIME. CPOC
--- NOTE | 2016-11-22 11:00 | NUR ---
PATIENT GONE FOR STRESS TEST.
--- NOTE | 2016-11-22 12:06 | NUR ---
PATIENT BACK FROM STRESS TEST. PATIENT DENIES ANY NEEDS AT THIS TIME. CPOC
--- NOTE | 2016-11-22 14:07 | NUR ---
12 LEAD EKG DONE. PATIENT VISITING WITH FRIENDS. DENIES ANY NEEDS. CPOC
[2016-11-22 15:23] LABS: CKMB 0.5 U/L (0.0-3.6); CREATINE KINASE 94 UL (21-232)
[2016-11-22 15:24] LABS: TROPONIN-I < 0.017 ng/mL (0.000-0.060)
--- NOTE | 2016-11-22 15:29 | NUR ---
PATIENT GONE TO NUCLEAR MEDICINE. CPOC
[2016-11-22 16:17] VITALS: BP 132/81
--- NOTE | 2016-11-22 17:34 | NUR ---
BUILDING ILLUMINATING ENGINEER STATED THAT PATIENT WAS HAVING A RUN OF VTACH. CHECKED ON PATIENT, PATIENT WAS ALSEEP. WOKE PATIENT UP. BP 134/95 HR 76 O2 SAT 93% AND RR 16. THERE WAS 25 BEATS OF VTACH. WILL NOTIFY DOCTOR. CPOC
--- NOTE | 2016-11-22 17:38 | NUR ---
Patient Name: MJ GUTIERREZ Admission Status: ER Accout number: [id number] Admission Date: 11-17-2016 : 1935 Admission Diagnosis: Attending: ROHITH MENG Current LOS: 5 Anticipated DC Date: Planned Disposition: Home Primary Insurance: MEDICARE A & B Discharge Planning Comments: * Is the patient Alert and Oriented? Yes 0 * How many steps to enter\exit or inside your home? RAMP 0 * PCP DR. MENG 0 * Pharmacy [facility] 0 * Preadmission Environment Home with Family 0 * ADLs Independent 0 * Equipment None 0 * Other Equipment [facility] - MEDICAL EQUIPMENT PROVIDER PREFERENCE 0 * List name and contact numbers for known caregivers / representatives who currently or will assist patient after discharge: GOLDEN GUTIERREZ, SPOUSE, 0 * Community resources currently utilized None 0 * Please name any agencies selected above. NONE 0 * Additional services required to return to the preadmission environment? No 0 * Can the patient safely return to the preadmission environment? Yes 0 * Has this patient been hospitalized within the prior 30 days at any hospital? No 0 CM MET WITH PT IN ROOM TO DISCUSS DISCHARGE PLANNING AND NEEDS. PT REPORTS LIVING AT HOME INDEPENDENTLY WITH SPOUSE. PT HAS NO MEDICAL EQUIPMENT AND NO OUTSIDE SERVICES ASSISTING IN THE HOME. CM DISCUSSED AVAILABILITY OF HOME HEALTH, REHAB SERVICES AND MEDICAL EQUIPMENT. PT DENIES DISCHARGE NEEDS, REPORTS HIS WILL PICK HIM UP FOR DISCHARGE HOME. IMPORTANT MESSAGE FROM MEDICARE PROVIDED AND EXPLAINED. CM TO FOLLOW AND ASSIST IF NEEDED. Manuscripts Curator: Jatin Medrano
--- NOTE | 2016-11-22 18:26 | NUR ---
PATIENT RESTING, DENIES ANY CHEST PAIN OR NEEDS AT THIS TIME. CONTROLLED AFIB ON MONITOR WITH A RATE OF 73
--- NOTE | 2016-11-22 19:34 | NUR ---
PT IN BED RESTING AROUSE TO VOICE. DENIES NEEDS AT THIS TIME WILL CONTINUE TO MONITOR.
[2016-11-22 20:49] LABS: CREATINE KINASE 81 UL (21-232)
[2016-11-22 21:12] LABS: CKMB 0.5 U/L (0.0-3.6); TROPONIN-I < 0.017 ng/mL (0.000-0.060)
[2016-11-22 21:18] VITALS: BP 115/67
--- NOTE | 2016-11-23 03:00 | NUR ---
PT RESTING COMFORTABLY, LYING ON RIGHT SIDE, EYES CLOSED, RESPIRATIONS EVEN AND UNLABORED. CONTINUE TO MONITOR CLOSELY. BED LOW, CALL LIGHT IN REACH, SIDE RAILS X 2, HOB 30 DEGREES.
[2016-11-23 06:30] LABS: ANION GAP 13.3 mmol/L (8-16); CALCIUM 9.4 mg/dL (8.5-10.1); CARBON DIOXIDE 25.7 mmol/L (21.0-32.0); CREATININE - SERUM 1.3 mg/dL (0.6-1.3)
[2016-11-23 06:43] LABS: BASOPHILS 0.2 % (0-2); EOSINOPHILS 3.1 % (0-7); HEMATOCRIT 41.5 % (42.0-54.0); HEMOGLOBIN 14.6 g/dL (13.5-17.5); IMMATURE GRANULOCYTES 0.2 % (0-5); LYMPHOCYTES 12.5 % (15-50); MCH 32.3 pg (26.0-34.0); MCHC 35.2 g/dL (31.0-37.0); MCV 91.8 fL (80.0-100.0); MEAN PLATELET VOLUME 10.3 fL (7.4-10.4); PLATELET COUNT 183 10x3/uL (130-400); RBC 4.52 10x6/uL (4.20-6.10); RDW 13.5 % (11.5-14.5); WBC 9.9 10x3/uL (4.8-10.8)
[2016-11-23] MEDS ORDERED: LASIX20 MG PO (07:47)
[2016-11-23] MEDS ORDERED: K-DUR20 MEQ PO (07:48)
--- NOTE | 2016-11-23 07:58 | NUR ---
AM ROUNDS - PT IS IN BED AND AWAKE AT THIS TIME. MONITOR SHOWING CAF, HR 69. PT IS ON 2L O2 VIA NC. IV TO RIGHT FA, SL. PT IS A&O. BED AT LOWEST POSITION. CALL ESTEVES IN USE/REACH. SIDE RAILS UP X2. WILL CONTINUE TO MONITOR
[2016-11-23 08:15] VITALS: BP 125/67
[2016-11-23 12:04] VITALS: BP 108/90
--- NOTE | 2016-11-23 13:20 | NUR ---
D/C - VERBAL AND WRITTEN D/C INSTRUCTIONS GIVEN TO PT AND . IV TO RIGHT FA D/C, CATH TIP INTACT. 2X2 DRESSING APPLIES AND SECURED WITH TAPE. PT TOLERATED WELL. PT LEFT FLOOR VIA WHEELCHAIR WITH AND VOLUNTEER. WILL D/C
== END 2016-11-23 13:22 | disposition home or self-care (01) | DRG 293 ==
LOC: D.ER 18:22 → D.M2 22:25
PROVIDERS: Emergency Medicine; Family Medicine; Internal Medicine Cardiovascular Disease; ADMIT Family Medicine
DX: I11.0 Hypertensive heart disease with heart failure (principal); I50.23 Acute on chronic systolic (congestive) heart failure; Z91.11 Patient's noncompliance with dietary regimen; I42.9 Cardiomyopathy, unspecified; I25.10 Atherosclerotic heart disease of native coronary artery without angina pectoris; I48.2 Chronic atrial fibrillation; E78.5 Hyperlipidemia, unspecified; E11.9 Type 2 diabetes mellitus without complications; Z95.5 Presence of coronary angioplasty implant and graft; I44.7 Left bundle-branch block, unspecified

== ENCOUNTER 2017-03-08 09:24 | Outpatient (CLI) | payer MEDICARE, BC ==
[~2017-03-08] VITALS: Ht 182.9 cm; Wt 95.5 kg
--- NOTE | ~2017-03-08 | HEMODYNAMI ---
PATIENT:MJ GUTIERREZ MEDICAL RECORD: [id number] : [birth year] LOCATION:DMATILDE ADMISSION DATE: 03/08/17 Generatedon:03/08/201712:26 Patient name: MJ GUTIERREZ Patient #: [id number] SSN: [id number] : 1935 Date of study: 03/08/2017 Page: Of Hemodynamic Procedure Report Patient Data Patient Demographics Procedure consent was obtained First Name: MJ Gender: Male Last Name: MATT : 1935 [facility] Initial: L Age: 81 year(s) Patient #: [id number] Race: SSN: [id number] Additional ID: [id number] Contact details [address]: [address] [place] [address] State: [place] City: [place] Zip code: [address] Past Medical History Allergies: No known allergies Admission Admission Data Admission Date: 03/08/2017 Admission Time: 9:24 Admit Source: Other Lab Results Lab Result Date: 03/08/2017 Lab Result Time: 9:20 Biochemistry Name Units Result Min Max BUN mg/dl 26 --(----)-* 7 18 Creatinine mg/dl 1.4 --(----)*- 0.6 1.3 CBC Name Units Result Min Max Hematocrit % 43.9 --(*---)-- 42 54 Hemoglobin g/dl 15.3 --(-*--)-- 13.5 17.5 Procedure Procedure Types Cath Procedure Diagnostic Procedure LHC LHC w/Coronaries PCI Procedure PTCA PTCA Initial Miscellaneous Procedures Moderate Sedation up to 30 minutes Procedure Description Procedure Date Procedure Date: 03/08/2017 Procedure Start Time: 12:07 Procedure End Time: 12:25 Procedure Staff Name Function Keith Grider MD Performing Physician Adam Gill RT Monitor [place] RT Scrub Kirby Frances RN Nurse Procedure Data Cath Procedure Fluoroscopy Diagnostic fluoroscopy Total fluoroscopy Time: 4.4 time: 4.4 min min Diagnostic fluoroscopy Total fluoroscopy dose: 867 dose: 867 mGy mGy Contrast Material Contrast Material Type Amount (ml) Isovue 300 108 Entry Location Entry Primary Successful Side Size Upsize Upsize Entry Closure Succes sful Closure Location (Fr) 1 (Fr) 2 (Fr) Remarks Device Remarks Femoral Right 5 Fr 6 Fr Exoseal artery Short Estimated blood loss: 10 ml Diagnostic catheters Device Type Used For End Catheter Placement MULTIPACK Pigtail 5 Fr Procedure catheter MULTIPACK JL 4.0 5Fr Procedure catheter MULTIPACK 3DRC 5Fr Procedure catheter Procedure Complications No complications Procedure Medications Medication Administration Route Dosage 0.9% NaCl I.V. 100 ml/hr Oxygen NC 2 l/min Heparin Flush Bag added to field 2 bags (1000units/500ml NS) Lidocaine 2% added to field 20 Versed I.V. 0.5 mg Fentanyl I.V. 25 mcg Versed I.V. 0.5 mg Fentanyl I.V. 25 mcg Heparin Bolus I.V. 4000 units Integrilin (Bolus I.V. 8.5 ml 2mg/ml) Integrilin (Bolus wasted 1.5 ml 2mg/ml) Plavix P.O. 600 mg Hemodynamics Rest HGB: 15.3 (g/dl) Heart Rate: 55 (bpm) Snapshots Pre Cath Intra NCS Post Cath Vital Signs Time Heart Resp SPO2 etCO2 NIBP (mmHg) Rhythm Pain Sedation Rate (ipm) (%) (mmHg) Status Level (bpm) 12:00:54 67 19 100 21.7 134/85(111) A-Fib 0 (11) 10(A) , No pain 12:05:33 59 17 98 23.9 137/79(112) A-Fib 0 (11) 10(A) , No pain 12:10:54 67 15 97 0.7 139/76(108) A-Fib 0 (11) 9(A) , No pain 12:15:33 64 14 97 20.2 123/74(95) A-Fib 0 (11) 9(A) , No pain 12:20:09 62 16 96 23.2 129/76(113) A-Fib 0 (11) 10(A) , No pain 12:24:50 58 10 96 23.9 125/68(89) A-Fib 0 (11) 9(A) , No pain Medications Time Medication Route Dose Verified Delivered Reason Notes Effectiveness by by 11:59:28 0.9% NaCl I.V. 100 Kirby Kirby Per physician ml/hr Yvrose Frances RN RN 11:59:39 Oxygen NC 2 Kirby Kirby Per physician l/min Yvrose Frances RN RN 11:59:49 Heparin Flush added 2 Kirby Kirby used for Bag to bags Yvrose Frances procedure (1000units/500ml field RN RN NS) 12:00:08 Lidocaine 2% added 20ml Kirby Kirby for local to vial Yvrose Frances anesthetic field RN RN 12:04:45 Versed I.V. 0.5 Kirby Kirby for sedation mg Yvrose Frances RN RN 12:04:57 Fentanyl I.V. 25 Kirby Kirby for sedation mcg Yvrose Frances RN RN 12:06:34 Versed I.V. 0.5 Kirby Kirby for sedation mg Yvrose Frances RN RN 12:08:39 Fentanyl I.V. 25 Kirby Kirby for sedation mcg Yvrose Frances RN RN 12:14:33 Heparin Bolus I.V. 4000 Kirby Kirby for units Yvrose Frances anticoagulation RN RN 12:14:58 Integrilin I.V. 8.5 Kirby Kirby for (Bolus 2mg/ml) ml Yvrose Frances antiplatelet RN RN therapy 12:15:12 Integrilin wasted 1.5 Kirby Kirby for (Bolus 2mg/ml) ml Yvrose Yvrose antiplatelet RN RN therapy 12:20:55 Plavix P.O. 600 Kirby Kirby for mg Yvrose Frances antiplatelet RN RN therapy Procedure Log Time Note 11:41:46 Admit Source: Other 11:41:47 Diagnostic Cath status Elective 11:41:49 [place] RT(R) sent for patient. Start room use. 11:41:50 Time tracking: Regular hours 11:42:10 Plan of Care:Hemodynamics will remain stable., Cardiac rhythm will remain stable., Comfort level will be maintained., Respiratory function will remain adequate., Patient/ family verbilizes understanding of procedure., Procedure tolerated without complication., Recovers from procedure without complications.. 11:42:43 H&P Date Dictated: 03/01/2017 Within 30 days and on chart., H&P Addendum completed by physician on day of procedure. (MUST COMPLETE FOR ALL OUTPATIENTS). 11::53 Lab Result : BUN 26 mg/dl ::53 Lab Result : Hemoglobin 15.3 g/dl ::53 Lab Result : Creatinine 1.4 mg/dl : Lab Result : Hematocrit 43.9 % 11::58 Lab results completed and on chart. 11:47:41 Patient received from Pre/Post Procedure Room to CCL 1 Alert and oriented. Tansferred to table in Supine position. 11:47:45 Warm blankets applied, and america hugger turned on for patient comfort. 11:47:46 Correct patient and procedure confirmed by team. 11:48:02 Signed procedure consent form obtained from patient. 11:48:05 ECG and BP/O2 sat monitors applied to patient. 11:48:08 Pre-procedure instructions explained to patient. 11:48:08 Pre-op teaching completed and patient verbalized understanding. 11:48:10 Family in waiting room. 11:48:11 Patient NPO since Midnight. 11:48:40 Patient allergic to No known allergies 11:48:42 Is the patient allergic to Iodine/contrast media? No. 11:48:45 Is patient on blood thinner?No 11:48:46 Patient diabetic? Yes. 11:48:48 If diabetic: On Metformin? No 11:48:51 Previous problem with sedation/anesthesia? No ? 11:48:53 Snore? No 11:48:54 Sleep apnea? No 11:48:57 Deviated septum? No 11:48:58 Opens mouth fully? Yes 11:48:59 Sticks out tongue? Yes 11:49:00 Airway obstruction? No ? 11:49:05 Dentures? Yes in tight 11:49:17 Pre procedure: right dorsailis pedis pulse 2+ Normal; easily identifiable; not easily obliterated 11:49:19 Patient pain scale 0/10 ?. 11:49:33 IV patent on arrival in left wrist with 0.9% NaCl at [facility]. 11:59:27 Vital chart was started 11:59:28 0.9% NaCl 100 ml/hr I.V. was administered by Kirby Frances RN; Per physician; 11:59:32 Baseline sample Acquired. 11:59:39 Oxygen 2 l/min NC was administered by Kirby Frances RN; Per physician; 11:59:49 Heparin Flush Bag (1000units/500ml NS) 2 bags added to field was administered by Kirby Frances RN; used for procedure; 12:00:08 Lidocaine 2% 20ml vial added to field was administered by Kirby Frances RN; for local anesthetic; 12:00:32 Rhythm: atrial fibrillation 12:00:45 Right groin area was prepped with chlora-prep and draped in sterile fashion 12:00:46 Alarms reviewed by R. N. 12:00:46 Sharps counted by scrub and verified by R.N. 12:00:48 Physician arrived 12:00:49 --------ALL STOP TIME OUT------ 12::49 Final Timeout: patient, procedure, and site verified with staff and physician. All members of the team are in agreement. 12:00:51 Right groin site verified by team. 12:00:54 Physical assessment completed. ASA score P 2 - A patient with mild systemic disease as per Keith Grider MD. 12:01:00 Sedation plan: IV Moderate Sedation Medication:Versed, Fentanyl 12:01:05 Use device set Femoral Dx 12:01:09 ACIST Syringe (87482) opened to sterile field. 12:01:10 ACIST Hand Control (92616) opened to sterile field. 12:01:11 ACIST Manifold (36701) opened to sterile field. 12:01:13 Tegaderm 4 x 4 (1626W) opened to sterile field. 12:01:15 Medline Cath Pack ([id number]) opened to sterile field. 12:01:15 Bag Decanter (2002) opened to sterile field. 12:01:18 PERCUTANEOUS ENTRY 19GA needle opened to sterile field. 12:01:20 DIAGNOSTIC Multipack 5Fr catheter set (GW9123) opened to sterile field. 12:01:21 DIAGNOSTIC WIRE .035 260cm J wire (904373) opened to sterile field. 12:01:21 SHEATH 5FR [place] (LIH121) opened to sterile field. 12:04:45 Versed 0.5 mg I.V. was administered by Kirby Frances RN; for sedation; 12:04:57 Fentanyl 25 mcg I.V. was administered by Kirby Frances RN; for sedation; 12:05:14 Zero performed for pressure channel P1 12:06:34 Versed 0.5 mg I.V. was administered by Kirby Frances RN; for sedation; 12:07:30 Procedure started. 12:07:30 Full Disclosure recording started 12:07:32 Local anesthetic to right femoral artery with Lidocaine 2% by Keith Grider MD.INITIAL ACCESS ONLY 12:07:47 A 5 Fr sheath was inserted into the Right Femoral artery 12:08:39 Fentanyl 25 mcg I.V. was administered by Kirby Frances RN; for sedation; 12:09:08 A MULTIPACK Pigtail 5 Fr catheter was advanced over the wire and used for Procedure. 12:09:12 LV gram done using AMADO 12:09:15 Injector settings: Ml/sec: 10, Volume: 20, 12:09:23 EF : 20 % 12:09:53 Catheter exchanged over wire. 12:09:59 A MULTIPACK JL 4.0 5Fr catheter was advanced over the wire and used for Procedure. 12:11:35 LCA angiography performed. 12:11:38 Catheter exchanged over wire. 12:11:42 A MULTIPACK 3DRC 5Fr catheter was advanced over the wire and used for Procedure. 12:11:44 RCA angiography performed. 12:12:16 Catheter removed. 12:12:25 SHEATH 6FR [place] (SXQ629) opened to sterile field. 12:12:25 INFLATOR Merit BasixCompak (MA7121) opened to sterile field. 12:12:36 GUIDE 6FR XBLAD 4.0 SH catheter ([id number]) opened to sterile field. 12:12:50 Sheath upsized to a 6 Fr Short. 12:13:05 CHOICE PT Extra Support J 300cm guide wire ([id number]) opened to sterile field. 12:13:59 6 Fr xblad 4 sh guide catheter was inserted over the wire 12:14:33 Heparin Bolus 4000 units I.V. was administered by Kirby Frances RN; for anticoagulation; 12:14:41 choice pt es wire advanced. 12:14:58 Integrilin (Bolus 2mg/ml) 8.5 ml I.V. was administered by Kirby Frances RN; for antiplatelet therapy; 12:15:12 Integrilin (Bolus 2mg/ml) 1.5 ml wasted was administered by Kirby Lorigan RN; for antiplatelet therapy; 12:16:07 Wire advanced across lesion. 12:17:05 Inflation number: 1 A NC EUPHORA 3.5 x 12 balloon ([id number]) was prepped and advanced across the Prox LAD, then inflated to 21 ELDER for 0:10 (min:sec). 12:17:24 Inflation number: 2 The NC EUPHORA 3.5 x 12 balloon ([id number]) was reinflated across the Prox LAD, to 21 ELDER for 0:10 (min:sec). 12:18:08 Inflation number: 3 The NC EUPHORA 3.5 x 12 balloon ([id number]) was reinflated across the Prox LAD, to 23 ELDER for 0:10 (min:sec). 12:18:18 Inflation number: 4 The NC EUPHORA 3.5 x 12 balloon ([id number]) was reinflated across the Prox LAD, to 23 ELDER for 0:10 (min:sec). 12:18:52 Inflation number: 5 The NC EUPHORA 3.5 x 12 balloon ([id number]) was reinflated across the Prox LAD, to 23 ELDER for 0:10 (min:sec). 12:19:01 Balloon removed over the wire. 12:19:27 Wire removed. 12:19:27 Guide catheter removed. 12:19:34 EXOSEAL 6Fr (EX600) opened to sterile field. 12:19:49 Sheath removed intact; hemostasis achieved with Exoseal to the Right Femoral artery. 12:19:50 Procedure ended.(Physican Out) 12:20:55 Plavix 600 mg P.O. was administered by Kirby Frances RN; for antiplatelet therapy; 12:: Fluoroscopy time 04.40 minutes. 12:21:29 Flurop Dose total: 867 12:21:29 Fluoroscopy dose: 867 mGy 12:21:33 Contrast amount:Isovue 300 108ml. 12:21:35 Sharps counted by scrub and verified by R.N. 12:21:42 Insertion/operative site no bleeding no hematoma. 12:21:46 Post-op/insertion site Right Femoral artery dressed using a 4 x 4 and Tegaderm. 12:21:50 Post right femoral artery:stable, soft, clean and dry 12:21:52 Post Procedure Pulses reassessed and unchanged 12:21:54 Post-procedure physical assessment completed. ASA score P 2 - A patient with mild systemic disease as per Keith Grider MD. 12:21:57 Post procedure rhythm: unchanged. 12:22:04 Estimated blood loss: 10 ml 12:22:05 Post procedure instruction explained to patient.Patient verbalizes understanding. 12:22:06 Patient needs reinforcement of post procedure teaching. 12:22:17 Procedure type changed to Cath procedure, Diagnostic procedure, LHC, LHC w/Coronaries, PCI procedure, PTCA, PTCA Initial, Miscellaneous Procedures, Moderate Sedation up to 30 minutes 12:24:32 Procedure and supply charges have been captured, reviewed, submitted and are correct. 12:24:34 Procedure Complication : No complications 12:24:43 Vital chart was stopped 12:24:44 See physician's report for complete and final results. 12:24:56 Report given to Pre/Post Procedure Room. 12:24:59 Patient transfered to Pre/Post Procedure Room with Stretcher. 12:25:01 Procedure ended. 12:25:01 Full Disclosure recording stopped 12:25:56 End room use (Document Last) Intervention Summary Intervention Notes Time ActionType Lesion and Equipment Action# Pressure Duration Attributes Used 12:17:05 Inflate Prox LAD NC EUPHORA 1 21 00:10 balloon 3.5 x 12 balloon ([id number]) 12:17:24 Reinflate Prox LAD NC EUPHORA 2 21 00:10 balloon 3.5 x 12 balloon ([id number]) 12:18:08 Reinflate Prox LAD NC EUPHORA 3 23 00:10 balloon 3.5 x 12 balloon ([id number]) 12:18:18 Reinflate Prox LAD NC EUPHORA 4 23 00:10 balloon 3.5 x 12 balloon ([id number]) 12:18:52 Reinflate Prox LAD NC EUPHORA 5 23 00:10 balloon 3.5 x 12 balloon ([id number]) Device Usage Item Name Manufacture Quantity Catalog Number Hospital Part Current Mini mal Lot# / Charge Number Stock Stock Serial# Code ACIST Acist 1 45694 917882 072378 674075 20 Syringe ColorModules (02597) [place] [employer] ACIST Hand Acist 1 60277 209863 126888 434892 5 Control Medical (83179) Systems Inc ACIST Acist 1 32691 471644 344581 962226 5 Manifold Medical (09996) Systems Inc Tegaderm 4 x 3M 1 1626W 981982 720796 130021 5 4 (1626W) Medline Cath Cardinal 1 [id number] 712060 76940 407711 5 Pack Health ([id number]) Bag Decanter Microtek 1 2001S 414075 43731 903395 5 (2001S) Medical Inc. PERCUTANEOUS Cook Medical 1 W52978 663222 944878 5 ENTRY 19GA needle DIAGNOSTIC Cardinal 1 OE8076 486324 48829 672044 30 Multipack Health 5Fr catheter set (ST9222) DIAGNOSTIC [facility] Yoseph 1 969846 116463 364431 299297 30 WIRE .035 260cm J wire (182671) SHEATH 5FR Terumo 1 VSO405 452525 283123 363534 40 [place] (WXB482) MULTIPACK Cardinal 1 438956 5 Pigtail 5 Fr Health catheter MULTIPACK JL Cardinal 1 214316 5 4.0 5Fr Health catheter MULTIPACK Cardinal 1 051230 5 3DRC 5Fr Health catheter SHEATH 6FR Terumo 1 MKO072 153532 164902 544766 40 [place] (DOJ183) INFLATOR Merit 1 IS8956 878055 218234 259751 15 [facility] Medical BasixCompak (VP9323) GUIDE 6FR Cardinal 1 [id number] 516987 9679 903483 3 XBLAD 4.0 SH Health catheter ([id number]) CHOICE PT [facility] 1 [id number] 485815 743486 216709 5 Extra Scientific Support J 300cm guide wire ([id number]) [place] EUPHORA Medtronic 1 [id number] 786503 812459 170264 1 [id number] 3.5 x 12 balloon ([id number]) EXOSEAL 6Fr Cardinal 1 EX600 245161 343486 710241 10 (EX600) Health Signature Audit [place] Stage Time Signature Unsigned Intra-Procedure 03/08/2017 Adam Gill 12:26:33 PM RT(R) Signatures Monitor : Adam Gill RT Signature : Date : Time : [place] [address] [place] [address]
--- NOTE | ~2017-03-08 | OP ---
PATIENT NAME: MJ GUTIERREZ MEDICAL RECORD: [id number] :34 LOCATION:D.CAT ADMISSION DATE: SURGEON: ANITRA LEUNG MD DATE OF OPERATION: 03/08/2017 PROCEDURES: 1. PTCA, LAD. 2. Left heart catheterization. 3. Selective coronary angiography. 4. Left ventriculogram. INDICATION: Angina and coronary artery disease. PROCEDURE IN DETAIL: After informed consent was obtained and after detailed explanation of risks, benefits as well as alternative therapies, the patient elected to proceed with angiogram and angioplasty. The right femoral area was prepped and draped in normal sterile fashion. The right femoral artery was cannulated via modified Seldinger technique with placement of 6-Sami sheath. All catheters exchanged through this sheath. FINDINGS: Left ventriculogram was performed in the standard 30-degree AMADO view reveals global hypokinesis throughout all segments. Overall ejection fraction in the 25% to 30%. SELECTIVE CORONARY ANGIOGRAPHY: 1. Left main has no significant angiographic disease. 2. Left anterior descending has previously placed stents. There is up to 80% to 90% in-stent restenosis proximally. 3. Left circumflex has czpa-[id number] irregularities, but no flow-limiting stenosis. 4. Right coronary has vlbq-ki-pqiegqgv irregularities, but no flow-limiting stenosis. PTCA OF THE LAD: High pressure balloon was used up to 23 atmospheres with proximal LAD with 3.5 x 12 mm balloon. Result was 0% residual stenosis. OVERALL IMPRESSION: High pressure percutaneous transluminal coronary angioplasty for in-stent restenosis of the left anterior descending going from 85+ percent initial stenosis to 0% residual. TRANSINT:[id number] Voice Confirmation ID: [id number] DOCUMENT ID: [id number] ANITRA LEUNG MD at 1323 CC: [id number] DICTATION DATE: 03/08/17 1222 LION TAMER: 03/08/17 1251 DEP CLI 03/08/[address] [address]
[~2017-03-08 09:24] MED LIST changes: +K-DUR20 MEQ PO; +LASIX20 MG PO
[2017-03-08] MEDS ORDERED: FIBERCON625 MG PO (09:34)
[2017-03-08 09:51] VITALS: BP 127/72; Ht 182.9 cm; Wt 95.5 kg
[2017-03-08 09:52] LABS: BASOPHILS 0.2 % (0-2); EOSINOPHILS 3.3 % (0-7); HEMATOCRIT 43.9 % (42.0-54.0); HEMOGLOBIN 15.3 g/dL (13.5-17.5); IMMATURE GRANULOCYTES 0.2 % (0-5); LYMPHOCYTES 15.1 % (15-50); MCH 32.6 pg (26.0-34.0); MCHC 34.9 g/dL (31.0-37.0); MCV 93.4 fL (80.0-100.0); MEAN PLATELET VOLUME 10.1 fL (7.4-10.4); MONOCYTES 6.4 % (2-11); NEUTROPHILS 74.8 % (40-80); WBC 8.6 10x3/uL (4.8-10.8)
[2017-03-08 10:08] LABS: ANION GAP 16.5 mmol/L (8-16); CALCIUM 9.5 mg/dL (8.5-10.1); CARBON DIOXIDE 22.4 mmol/L (21.0-32.0); CREATININE - SERUM 1.4 mg/dL (0.6-1.3); POTASSIUM - SERUM 4.9 mmol/L (3.5-5.1)
[2017-03-08 10:40] LABS: PLATELET COUNT 228 10x3/uL (130-400)
[2017-03-08] MEDS ORDERED: PLAVIX75 MG PO (13:35)
== END 2017-03-08 19:05 | disposition home or self-care (01) ==
LOC: D.CATH 09:24
PROVIDERS: Internal Medicine Interventional Cardiology
DX: I25.119 Atherosclerotic heart disease of native coronary artery with unspecified angina pectoris (principal); T82.855A Stenosis of coronary artery stent, initial encounter; Z01.812 Encounter for preprocedural laboratory examination

== ENCOUNTER → 2017-06-26 07:28 | Outpatient (CLI) | payer MEDICARE ==
[~2017-06-26] VITALS: Ht 182.9 cm; Wt 100.0 kg
--- NOTE | ~2017-06-26 | OP ---
PATIENT NAME: MJ GUTIERREZ MEDICAL RECORD: [id number] :34 LOCATION:D.CAT ADMISSION DATE: SURGEON: ANITRA LEUNG MD DATE OF OPERATION: 06/26/2017 PROCEDURES: 1. PTCA stent LAD. 2. Left heart catheterization. 3. Selective coronary angiography. 4. Left ventriculogram. INDICATION: Angina, coronary artery disease, and cardiomyopathy. PROCEDURE IN DETAIL: After informed consent was obtained and after a detailed description of risks, benefits as well as alternative therapies, the patient elected to proceed with angiogram and angioplasty. The right femoral area was prepped and draped in normal sterile fashion. Right femoral artery was cannulated via modified Seldinger technique with placement of 6-Burkinan sheath. All catheters exchanged through this sheath. FINDINGS: The left ventriculogram was performed in standard 30-degree AMADO view, reveals global hypokinesis throughout all segments. Overall ejection fraction 25%. SELECTIVE CORONARY ANGIOGRAPHY: 1. Left main is with no significant angiographic disease. 2. Left anterior descending has previously placed stents with 80% in-stent restenosis in the proximal vessel. 3. Left circumflex has moderate irregularities, but no flow-limiting stenosis. 4. Right coronary artery has moderate irregularities, but no flow-limiting stenosis. PTCA STENT OF THE LAD: The stent used was a 3.5 x 12 mm Leonel. Result was 0% residual stenosis. OVERALL IMPRESSION: Successful percutaneous transluminal coronary angioplasty stent of the left anterior descending going from 80% initial stenosis to 0% residual stenosis. TRANSINT:[id number] Voice Confirmation ID: [id number] DOCUMENT ID: [id number] ANITRA LEUNG MD at 1006 CC: [id number] DICTATION DATE: 06/26/17 1011 FUR BUYER: 06/26/17 1132 DEP CLI 06/26/17 [place] [id number] [place] [id number]
--- NOTE | ~2017-06-26 | HEMODYNAMI ---
PATIENT:MJ GUTIERREZ MEDICAL RECORD: [id number] : 33 LOCATION:[facility]IL[facility] ADMISSION DATE: 06/26/17 Generatedon:06/26/201710:12 Patient name: MJ GUTIERREZ Patient #: [id number] SSN: [id number] : 1935 Date of study: 06/26/2017 Page: Of Hemodynamic Procedure Report Patient Data Patient Demographics Procedure consent was obtained First Name: MJ Gender: Male Last Name: MATT : 1935 Middle Initial: L Age: 81 year(s) Patient #: [id number] Race: SSN: [id number] Additional ID: [id number] Contact details [address]: [address] [place] [address] State: [place] City: [place] Zip code: [address] Past Medical History Allergies: No known allergies Admission Admission Data Admission Date: 06/26/2017 Admission Time: 7:28 Procedure Procedure Types Cath Procedure Diagnostic Procedure LHC LH w/Coronaries PCI Procedure Coronary Stent Coronary Stent Initial Procedure Description Procedure Date Procedure Date: 06/26/2017 Procedure Start Time: 9:52 Procedure End Time: 10:08 Procedure Staff Name Function Keith Grider MD Performing Physician Lisa Nevarez RT Monitor Hoa Gonzales RT Scrub Kirby Frances RN Nurse Procedure Data Cath Procedure Fluoroscopy Diagnostic fluoroscopy Total fluoroscopy Time: 3.1 time: 3.1 min min Diagnostic fluoroscopy Total fluoroscopy dose: dose: 1048 mGy 1048 mGy Contrast Material Contrast Material Type Amount (ml) Isovue 300 68 Entry Location Entry Primary Successful Side Size Upsize Upsize Entry Closure Succes sful Closure Location (Fr) 1 (Fr) 2 (Fr) Remarks Device Remarks Femoral Right 5 Fr 6 Fr Exoseal artery Short Estimated blood loss: 5 ml Diagnostic catheters Device Type Used For End Catheter Placement MULTIPACK Pigtail 5 Fr LV Angiography catheter MULTIPACK JL 4.0 5Fr Left Coronary catheter Angiography MULTIPACK 3DRC 5Fr Right Coronary catheter Angiography Procedure Complications No complications Procedure Medications Medication Administration Route Dosage 0.9% NaCl I.V. 100 ml/hr Oxygen etCO2 Nasal cannula 2 l/min Heparin Flush Bag added to field 2 bags (1000units/500ml NS) Lidocaine 2% added to field 20 Versed I.V. 2 mg Fentanyl I.V. 100 mcg Versed I.V. 1 mg Heparin Bolus I.V. 4000 units Integrilin (Bolus I.V. 9 ml 2mg/ml) Integrilin (Bolus wasted 1 ml 2mg/ml) Plavix P.O. 600 mg Hemodynamics Rest Heart Rate: 61 (bpm) Snapshots Pre Cath Intra NCS Post Cath Vital Signs Time Heart Resp SPO2 etCO2 NIBP (mmHg) Rhythm Pain Sedation Rate (ipm) (%) (mmHg) Status Level (bpm) 9:19:54 55 18 98 16.6 123/79(112) NSR 0 (11) 10(A) , No pain 9:25:07 57 17 97 0.7 125/66(95) NSR 0 (11) 10(A) , No pain 9:29:21 57 15 95 24.1 123/74(108) NSR 0 (11) 10(A) , No pain 9:33:35 52 14 97 25.6 126/67(87) NSR 0 (11) 10(A) , No pain 9:37:55 60 14 96 27.9 120/66(92) NSR 0 (11) 10(A) , No pain 9:42:07 55 13 96 25.6 108/61(78) NSR 0 (11) 10(A) , No pain 9:46:13 55 15 94 16.5 109/66(84) NSR 0 (11) 10(A) , No pain 9:50:23 56 19 97 28.6 117/70(92) NSR 0 (11) 10(A) , No pain 9:54:35 58 15 94 24.1 122/72(104) NSR 0 (11) 9(A) , No pain 9:58:45 59 14 92 0 95/57(80) NSR 0 (11) 9(A) , No pain 10:02:53 53 14 93 0 95/55(75) NSR 0 (11) 9(A) , No pain 10:06:58 55 12 91 0 100/60(87) NSR 0 (11) 9(A) , No pain Medications Time Medication Route Dose Verified Delivered Reason Notes Effectiveness by by 9:23:20 0.9% NaCl I.V. 100 Kirby Kirby Per physician ml/hr Yvrose Frances RN RN 9:23:34 Oxygen etCO2 2 Kirby Kirby Per physician Nasal l/min Yvrose Frances cannula RN RN 9:23:45 Heparin Flush added 2 Kirby Kirby used for Bag to bags Yvrose Frances procedure (1000units/500ml field RN RN NS) 9:23:58 Lidocaine 2% added 20ml Kirby Kirby for local to vial Yvrose Frances anesthetic field RN RN 9:50:34 Versed I.V. 2 mg Kirby Kirby for sedation Yvrose Frances RN RN 9:50:42 Fentanyl I.V. 100 Kirby Kirby for sedation mcg Yvrose Frances RN RN 9:54:10 Versed I.V. 1 mg Kirby Kirby for sedation Yvrose Frances RN RN 10:00:59 Heparin Bolus I.V. 4000 Kirby Kirby for units Yvrose Frances anticoagulation RN RN 10:01:13 Integrilin I.V. 9 ml Kirby Kirby for (Bolus 2mg/ml) Yvrose Frances antiplatelet RN RN therapy 10:02:51 Integrilin wasted 1 ml Kirby Kirby to sharp's (Bolus 2mg/ml) Yvrose Frances RN RN 10:06:26 Plavix P.O. 600 Kirby Kirby for mg Yvrose Frances antiplatelet RN RN therapy Procedure Log Time Note 9:00:14 Plan of Care:Hemodynamics will remain stable., Cardiac rhythm will remain stable., Comfort level will be maintained., Respiratory function will remain adequate., Patient/ family verbilizes understanding of procedure., Procedure tolerated without complication., Recovers from procedure without complications.. 9:04:42 Informed consent obtained and on chart 9:04:48 Diagnostic Cath Status : Elective 9:05:09 Lisa CHAPA(R) sent for patient. Start room use. 9:05:10 Time tracking: Regular hours (M-F 7:00 - 5:00) 9:18:34 Patient received from Pre/Post Procedure Room to CCL 2 Alert and oriented. Tansferred to table in Supine position. 9:18:35 Warm blankets applied, and america hugger turned on for patient comfort. 9:18:35 Correct patient and procedure confirmed by team. 9:18:36 ECG and BP/O2 sat monitors applied to patient. 9:18:52 Vital chart was started 9:18:55 Baseline sample Acquired. 9:20:22 Rhythm: atrial fibrillation 9:20:23 Full Disclosure recording started 9:20:28 H&P Date Dictated: 06/26/2017 Within 30 days and on chart., H&P Addendum completed by physician on day of procedure. (MUST COMPLETE FOR ALL OUTPATIENTS). 9:20:29 Pre-procedure instructions explained to patient. 9:20:30 Pre-op teaching completed and patient verbalized understanding. 9:20:32 Family in waiting room. 9:20:33 Patient NPO since Midnight. 9:20:37 Is the patient allergic to Iodine/contrast media? No. 9:20:38 Was the patient premedicated? No 9:21:13 Is patient on blood thinner?Yes 9:21:16 ACC The patient was administered the following blood thiners within the last 24 hours: Xarelto 9:21:18 Patient diabetic? Yes. 9:21:19 If diabetic: On Metformin? Yes 9:21:20 If on Metformin: Last Dose? 06/25/2017 9:21:22 Previous problem with sedation/anesthesia? No ? 9:21:26 Snore? Yes 9:21:27 Sleep apnea? No 9:21:28 Deviated septum? No 9:21:29 Opens mouth fully? Yes 9:22:19 Sticks out tongue? Yes 9:22:22 Airway obstruction? No ? 9:22:25 Dentures? Yes out 9:22:35 Pre procedure: right dorsailis pedis pulse 1+ Palpable, but thready & weak; easily obliterated 9:22:38 Pre procedure: left dorsailis pedis pulse 1+ Palpable, but thready & weak; easily obliterated 9:23:20 0.9% NaCl 100 ml/hr I.V. was administered by Kirby Frances RN; Per physician; 9:23:34 Oxygen 2 l/min etCO2 Nasal cannula was administered by Kirby Frances RN; Per physician; 9:23:45 Heparin Flush Bag (1000units/500ml NS) 2 bags added to field was administered by Kirby Frances RN; used for procedure; 9:23:48 Patient pain scale 0/10 ?. 9:23:58 Lidocaine 2% 20ml vial added to field was administered by Kirby Frances RN; for local anesthetic; 9:24:00 IV patent on arrival in right hand with 0.9% NaCl at [facility]. 9:24:03 Lab results completed and on chart. 9:25:06 Right groin area was prepped with chlora-prep and draped in sterile fashion 9:25:06 Alarms reviewed by R. N. 9:25:07 Sharps counted by scrub and verified by R.N. 9:38:35 Zero performed for pressure channel P1 9:49:27 Physician paged 9:49:28 Physician arrived 9:49:28 --------ALL STOP TIME OUT------ 9:49:30 Final Timeout: patient, procedure, and site verified with staff and physician. All members of the team are in agreement. 9:49:33 Right groin site verified by team. 9:49:37 Physical assessment completed. ASA score P 2 - A patient with mild systemic disease as per Keith Grider MD. 9:49:43 Sedation plan: IV Moderate Sedation Medication:Versed, Fentanyl 9:50:34 Versed 2 mg I.V. was administered by Kirby Frances RN; for sedation; 9:50:40 Use device set Femoral Dx 9:50:42 Fentanyl 100 mcg I.V. was administered by Kirby Frances RN; for sedation; 9:50:42 ACIST Syringe (90292) opened to sterile field. 9:50:42 Bag Decanter () opened to sterile field. 9:50:43 Medline Cath Pack ([id number]) opened to sterile field. 9:50:43 DIAGNOSTIC WIRE .035 260cm J wire (360276) opened to sterile field. 9:50:45 ACIST Hand Control (42367) opened to sterile field. 9:50:46 ACIST Manifold (36952) opened to sterile field. 9:50:47 DIAGNOSTIC Multipack 5Fr catheter set (LV0091) opened to sterile field. 9:50:47 Tegaderm 4 x 4 (1626W) opened to sterile field. 9:50:52 SHEATH Prelude 5Fr 0.035 ([id number]-[id number]) opened to sterile field. 9:52:07 Procedure started. 9:52:12 Local anesthetic to right femoral artery with Lidocaine 2% by Keith Grider MD.INITIAL ACCESS ONLY 9:52:27 A 5 Fr sheath was inserted into the Right Femoral artery 9:53:29 A MULTIPACK Pigtail 5 Fr catheter was advanced over the wire and used for LV Angiography. 9:54:10 Versed 1 mg I.V. was administered by Kirby Frances RN; for sedation; 9:55:07 LV gram done using AMADO 9:55:09 Injector settings: Ml/sec: 5, Volume: 15, 9:55:16 EF : 25 % 9:55:20 Catheter removed. 9:55:24 A MULTIPACK JL 4.0 5Fr catheter was advanced over the wire and used for Left Coronary Angiography. 9:55:41 LCA angiography performed. 9:55:44 Injector settings: Ml/sec: 3, Volume: 6, 9:56:49 Catheter removed. 9:57:35 A MULTIPACK 3DRC 5Fr catheter was advanced over the wire and used for Right Coronary Angiography. 9:58:05 RCA angiography performed. 9:58:12 Injector settings: Ml/sec: 3, Volume: 6, 9:58:18 Catheter removed. 9:58:20 Proceeding to intervention. 9:58:38 CHOICE PT Extra Support 182cm wire ([id number]) opened to sterile field. 9:58:39 INFLATOR Merit BasixCompak (SY0915) opened to sterile field. 9:58:39 SHEATH 6Fr Prelude ([id number]) opened to sterile field. 9:58:50 Sheath upsized to a 6 Fr Short. 10:00:54 GUIDE 6FR XBLAD 3.5 SH catheter ([id number]) opened to sterile field. 10:00:59 Heparin Bolus 4000 units I.V. was administered by Kirby Frances RN; for anticoagulation; 10:01:03 6 Fr xblad 3.5 sh guide catheter was inserted over the wire 10:01:10 choice pt wire advanced. 10:01:13 Integrilin (Bolus 2mg/ml) 9 ml I.V. was administered by Kirby Frances RN; for antiplatelet therapy; 10:01:42 Wire advanced across lesion. 10:02:51 Integrilin (Bolus 2mg/ml) 1 ml wasted was administered by Kirby Frances RN; to sharp's; 10:03:02 Place stent Inflation Number: 1 A MANDY RX 3.5 x 12 stent ([id number]) was prepped and advanced across the Prox LAD. The stent was deployed at 21 ELDER for 0:10 (min:sec). 10:03:16 Inflation number: 2 The stent balloon was then re-inflated across the Prox LAD to 21 ELDER for 0:10 (min:sec). 10:03:40 Inflation number: 3 The stent balloon was then re-inflated across the Prox LAD to 19 ELDER for 0:10 (min:sec). 10:05:40 Stent catheter was removed intact over wire. 10:05:41 Wire removed. 10:05:41 Guide catheter removed. 10:06:26 Plavix 600 mg P.O. was administered by Kirby Frances RN; for antiplatelet therapy; 10:06:28 EXOSEAL 6Fr (EX600) opened to sterile field. 10:06:42 Sheath removed intact; hemostasis achieved with Exoseal to the Right Femoral artery. 10:06:44 Procedure ended.(Physican Out) 10:06:58 Fluoroscopy time 03.10 minutes. 10:07:06 Fluoroscopy dose: 1048 mGy 10:07:06 Flurop Dose total: 1048 10:07:10 Contrast amount:Isovue 300 68ml. 10:07:12 Sharps counted by scrub and verified by R.N. 10:07:20 Insertion/operative site no bleeding no hematoma. 10:07:23 Post-op/insertion site Right Femoral artery dressed using a 4 x 4 and Tegaderm. 10:07:25 Post right femoral artery:stable 10:07:27 Post Procedure Pulses reassessed and unchanged 10:07:30 Post procedure rhythm: unchanged. 10:07:33 Estimated blood loss: 5 ml 10:07:35 Post procedure instruction explained to patient.Patient verbalizes understanding. 10:07:36 Patient needs reinforcement of post procedure teaching. 10:07:52 Procedure type changed to Cath procedure, Diagnostic procedure, LHC, LHC w/Coronaries, PCI procedure, Coronary Stent, Coronary Stent Initial 10:07:53 Procedure and supply charges have been captured, reviewed, submitted and are correct. 10:07:58 Procedure Complication : No complications 10:08:03 Vital chart was stopped 10:08:03 See physician's report for complete and final results. 10:08:08 Report given to Pre/Post Procedure Room. 10:08:10 Patient transfered to Pre/Post Procedure Room with Stretcher. 10:08:12 Procedure ended. 10:08:12 Full Disclosure recording stopped 10:08:20 ACC-PCI Only Patient was given prescriptions, or instructed by Keith Grider MD to start/continue the following medications upon discharge: Plavix 10:08:22 End room use (Document Last) Intervention Summary Intervention Notes Time ActionType Lesion and Equipment Used Action# Pressure Duration Attributes 10:03:[address] stent Prox LAD MANDY RX 3.5 x 1 21 00:10 12 stent ([id number]) 10:03:16 Reinflate Prox LAD MANDY RX 3.5 x 2 21 00:10 stent 12 stent balloon ([id number]) 10:03:40 Reinflate Prox LAD MANDY RX 3.5 x 3 19 00:10 stent 12 stent balloon ([id number]) Device Usage Item Name Manufacture Quantity Catalog Number Hospital Part Current Minimal Lot# / Charge Number Stock Stock Serial# Code ACIST Syringe Acist 1 43097 270804 227575 [id number] 20 (78430) Medical Systems Inc Bag Decanter Microtek 1 2001S 705739 85068 748792 5 (2001S) Medical Inc. Medline Cath Cardinal 1 [id number] 602029 22695 810174 5 Pack Health ([id number]) DIAGNOSTIC WIRE St Yoseph 1 025003 285605 275754 227511 30 .035 260cm J wire (178290) ACIST Hand Acist 1 49393 876762 222158 127437 5 Control (56117) Medical Systems Inc ACIST Manifold Acist 1 95619 263462 949206 076981 5 (55285) Medical Systems Inc DIAGNOSTIC Cardinal 1 [id number] 015031 85425 611322 30 Multipack 5Fr Health catheter set (HE6685) Tegaderm 4 x 4 3M 1 1626W 559370 680363 009239 5 (1626W) SHEATH Prelude Merit 1 [id number] 933002 993411 434087 5 5Fr 0.035 Medical ([id number]-0H-[id number]) MULTIPACK Cardinal 1 645202 5 Pigtail 5 Fr Health catheter MULTIPACK JL Cardinal 1 689868 5 4.0 5Fr Health catheter MULTIPACK 3DRC Cardinal 1 742591 5 5Fr catheter Health CHOICE PT Extra Dudley 1 [id number] 558987 503188 046129 5 Support 182cm Scientific wire ([id number]) INFLATOR Merit Merit 1 [id number] 720119 699816 263259 15 BasixComKerlink Medical (KE6981) SHEATH 6Fr Merit 1 [id number] 106087 560299 431837 5 Prelude Medical ([id number]) GUIDE 6FR XBLAD Cardinal 1 [id number] 242095 289482 325780 3 3.5 SH catheter Health ([id number]) MANDY RX 3.5 x Medtronic 1 [id number] 680933 2484372 327573 5 [id number] 12 stent ([id number]) EXOSEAL 6Fr Cardinal 1 EX600 661214 795838 482103 10 (EX600) Health Signature Audit [place] Stage Time Signature Unsigned Intra-Procedure 06/26/2017 Hoa Gonzales 10:12:26 AM RT(R) Signatures Monitor : Lisa Nevarez Signature : RT Date : Time : [facility] [address] [place] [address]
[~2017-06-26 07:28] MED LIST changes: +FIBERCON625 MG PO
[2017-06-26 08:00] VITALS: BP 134/77; Ht 182.9 cm; Wt 100.0 kg
[2017-06-26 08:10] LABS: BASOPHILS 0.4 % (0-2); EOSINOPHILS 3.4 % (0-7); HEMATOCRIT 40.8 % (42.0-54.0); HEMOGLOBIN 14.5 g/dL (13.5-17.5); IMMATURE GRANULOCYTES 0.1 % (0-5); LYMPHOCYTES 14.8 % (15-50); MCH 33.3 pg (26.0-34.0); MCHC 35.5 g/dL (31.0-37.0); MCV 93.8 fL (80.0-100.0); MEAN PLATELET VOLUME 10.2 fL (7.4-10.4); MONOCYTES 5.3 % (2-11); RBC 4.35 10x6/uL (4.20-6.10); RDW 12.9 % (11.5-14.5); WBC 8.5 10x3/uL (4.8-10.8)
[2017-06-26 08:11] LABS: PLATELET COUNT 180 10x3/uL (130-400)
[2017-06-26 08:27] LABS: ANION GAP 19.6 mmol/L (8-16); CALCIUM 9.1 mg/dL (8.5-10.1); CARBON DIOXIDE 18.6 mmol/L (21.0-32.0); CREATININE - SERUM 1.3 mg/dL (0.6-1.3); POTASSIUM - SERUM 4.2 mmol/L (3.5-5.1)
== END | disposition home or self-care (01) ==
LOC: D.CATH 07:28
PROVIDERS: Internal Medicine Interventional Cardiology
DX: I25.119 Atherosclerotic heart disease of native coronary artery with unspecified angina pectoris (principal); I48.0 Paroxysmal atrial fibrillation; R06.09 Other forms of dyspnea; Z01.812 Encounter for preprocedural laboratory examination
CPT/HCPCS: 93458; C9600

== ENCOUNTER 2018-08-10 10:59 | Inpatient (IN) | payer MEDICARE ==
[~2018-08-10] VITALS: Ht 182.9 cm; Wt 101.6 kg
--- NOTE | ~2018-08-10 | EC ---
PATIENT:MJ GUTIERREZ DATE OF SERVICE: 08/10/18 SEX: M MEDICAL RECORD: [id number] DATE OF : 34 LOCATION:D.M2 D.211 AGE OF PATIENT: 82 ADMISSION DATE: 08/10/18 REFERRING PHYSICIAN: INTERPRETING PHYSICIAN: ANITRA GRIDER MD ECHOCARDIOGRAM REPORT ECHO CHARGES 4 ECHO COMPLETE Date: 08/11/18 CLINICAL DIAGNOSIS: CHF ECHOCARDIOGRAPHIC MEASUREMENTS (adult normal given) AC root (d.<3.7cm) 2.7 cm LV Septum d (<1.2 cm> 1.1 cm Valve Excursion 1.1 cm LV Septum (systole) 1.6 cm Left Atria (s.<4.0cm> 2.6 cm LVPW d(<1.2cm) 1.4 cm RV (d.<2.3cm) 3.6 cm LVPW (sytole) 1.9 cm LV diastole(<5.6CM) 4.7 cm MV E-F(>70mm/sec) cm LV systole 3.2 cm LVOT Diameter 1.9 cm MV exc.(>10mm) cm Est.ejection fraction (50-75%) % DOPPLER: LVIT cm/sec A 22 cm/sec E 62 cm/sec LA cm/sec RVSP 33.7 mmHg LVOT 97 cm/sec AOP1/2T m/s Asc. Ao cm/sec RVOT 80 cm/sec RA cm/sec PA 68 cm/sec AV Gradient Peak mmHg AV Mean mmHg AV Area cm MV Gradient Peak 2.8 mmHg MV Mean 1.2 mmHg MV Area cm COMMENTS: Photography Spotter: Chandni OGDEN Voice Network Administrator: 1 Dr. Grider TAPE# PACS Pericardial Effusion N DATE OF SERVICE: 08/11/2018 FINDINGS: 1. Left ventricular chamber size is within normal limits. Left ventricular systolic function is mildly depressed at 40% to 45%. 2. Left atrium, right atrium, and right ventricular chamber sizes are within normal limits. 3. Valvular structures have normal structure and motion. 4. Doppler interrogation reveals mild aortic insufficiency, mild mitral regurgitation, mild tricuspid regurgitation, no other valvular insufficiency or ECHOCARDIOGRAM REPORT [id number] MJ GUTIERREZ stenosis. 5. No evidence of pericardial effusion or left ventricular thrombus. TRANSINT:[id number] Voice Confirmation ID: [id number] DOCUMENT ID: [id number] ANITRA GRIDER MD CC: [id number] DICTATION DATE: 08/12/18 1024 HOSPICE MANAGER: 08/12/18 1413 DIS IN 08/11/18 [facility] [address] [place] [id number]
--- NOTE | ~2018-08-10 | CN ---
PATIENT NAME:MJ [place] MEDICAL RECORD: [id number] : 34 LOCATION:D. D.2118 ADMIT DATE: 08/10/18 ACCOUNT: [id number] CONSULTING PHYSICIAN: ANITRA LEUNG MD REFERRING PHYSICIAN: ROHITH MENG MD DATE OF CONSULTATION: 08/11/2018 DIAGNOSES: 1. Shortness of breath, dyspnea on exertion. 2. Congestive heart failure, chronic systolic dysfunction. 3. Dilated cardiomyopathy. 4. Coronary artery disease. 5. Atrial fibrillation, chronic. 6. Abnormal ECG, left bundle-branch block, atrial fibrillation. 7. Hypertension. HISTORY OF PRESENT ILLNESS: Mr. [place] is well known to us with a past history of coronary artery disease, ischemic cardiomyopathy, and chronic atrial fibrillation. He presents with increasing shortness of breath, received diuresis. His breathing is now back to baseline. His atrial fibrillation is chronic. It is slow. His heart rates are in the 40s. He is on metoprolol 100 mg b.i.d. PHYSICAL EXAMINATION: GENERAL APPEARANCE: Well-nourished, well-developed, appears stated age. Level of distress, comfortable. PSYCHIATRIC: Mental status, alert, normal affect. Orientation, oriented to time, place and person. EYES: Lids and conjunctiva, noninjected. No discharge, no pallor. ENT: Lips, teeth, gums, normal dentition. Oropharynx, no cyanosis, no pallor. NECK: Carotid arteries, bilateral normal upstroke, no bruits, no thrills. JUGULAR VEINS: No jugular venous pressure or distention. CERVICAL LYMPH NODES: Nontender, nonenlarged. THYROID: Not enlarged. Nontender. No nodules. LUNGS: Respiratory effort, unlabored. CHEST: Normal curvature. No thoracic deformity. No chest wall tenderness. Percussion, resonant. Auscultation, clear. No wheezes, no rales, no rhonchi. CARDIOVASCULAR: Precordial exam, nondisplaced. No heaves or pericardial thrills. Rate and rhythm, regular. Heart sounds, normal S1, normal S2. No S3, no gallop, no rub. Systolic murmur, not heard. Diastolic murmur, not heard. EXTREMITIES: No cyanosis, no edema. Peripheral pulses, full and equal in all extremities, except as noted. No bruits appreciated. ABDOMEN: Soft, nondistended. Normal aorta. No bruit. Nontender. No masses. Liver, nontender, no hepatomegaly. Spleen, nontender, no splenomegaly. MUSCULOSKELETAL: No joint tenderness. No joint swelling. No erythema. NEUROLOGICAL: Normal gait, normal strength, normal tone. SKIN: Warm and dry. OVERALL IMPRESSION: Congestive heart failure. Symptomatology has cleared with diuresis. At this time, we will target the bradycardia and atrial fibrillation by decreasing his Toprol to 50 mg b.i.d. other than 100 mg b.i.d. We will also get an echocardiogram to reassess his ejection fraction since it has not been done in quite some time. TRANSINT:[id number] Voice Confirmation ID: [id number] DOCUMENT ID: [id number] CONSULT REPORT [id number] MJ [place] JEFFREY MD CC: [id number] DICTATION DATE: 08/11/18 1151 GRAPHIC DESIGN SPECIALIST: 08/11/18 1332 ADM IN [facility] [address] [place] [id number]
[2018-08-10 11:43] LABS: BASOPHILS 0.3 % (0-2); EOSINOPHILS 3.4 % (0-7); HEMATOCRIT 38.1 % (42.0-54.0); HEMOGLOBIN 13.1 g/dL (13.5-17.5); IMMATURE GRANULOCYTES 0.3 % (0-5); LYMPHOCYTES 16.2 % (15-50); MCHC 34.4 g/dL (31.0-37.0); MCV 92.9 fL (80.0-100.0); MEAN PLATELET VOLUME 10.3 fL (7.4-10.4); MONOCYTES 6.7 % (2-11); NEUTROPHILS 73.1 % (40-80); PLATELET COUNT 165 10x3/uL (130-400); WBC 7.5 10x3/uL (4.8-10.8)
[2018-08-10 11:57] LABS: ALBUMIN 3.6 g/dL (3.4-5.0); ALKALINE PHOSPHATASE 40 U/L (46-116); ALT (SGPT) 19 U/L (10-68); BILIRUBIN - TOTAL 0.71 mg/dL (0.2-1.3); CALC OSMOLALITY 279 mosm/kg (275-300); CALCIUM 8.9 mg/dL (8.5-10.1); CARBON DIOXIDE 19.3 mmol/L (21.0-32.0); CHLORIDE - SERUM 105 mmol/L (98-107); CREATININE - SERUM 1.2 mg/dL (0.6-1.3); GLUCOSE 180 mg/dL (74-106); POTASSIUM - SERUM 4.5 mmol/L (3.5-5.1); PROTEIN - SERUM 7.2 g/dL (6.4-8.2); SODIUM 137 mmol/L (136-145); UREA NITROGEN 15 mg/dL (7-18); eGFR NON AFRICAN AMERICAN 61 mL/min (90-120)
--- NOTE | 2018-08-10 11:59 | NUR ---
pt reports he came back from [place] 4 days ago and began experiencing SOB while there but that it has continued to get worse since he got home. He has a fairly significant heart hx with a previous RI and as many as 10 stents. He also reports "I had chf in the past but i think its gone now." Pt is aaox4 - saturation is 97% on RA - he is bradycardic at 52 - afebrile - denies pain -
[2018-08-10 12:10] LABS: CKMB 0.9 U/L (0.0-3.6); CREATINE KINASE 55 UL (21-232); PRO BNP 3268 pg/mL (0-450); TROPONIN-I < 0.017 ng/mL (0.000-0.060)
[2018-08-10 12:21] VITALS: BP 111/67
[2018-08-10 13:20] VITALS: BP 112/64
[2018-08-10 14:20] VITALS: BP 123/69
[2018-08-10 16:21] VITALS: BP 118/68
--- NOTE | 2018-08-10 16:50 | NUR ---
TRANSFER FROM [facility] W/C. AIDENINTED TO ROOM. CALL LIGHT IN REACH. WILL CONT. PLAN OF CARE.
[2018-08-10 16:52] VITALS: BP 112/64; BMI 29.9
[2018-08-10 20:00] VITALS: BP 105/50
--- NOTE | 2018-08-10 20:00 | NUR ---
INITIAL ROUNDS AND ASSESSMENT COMPLETED. PT RESTING IN BED. NO DISTRESS. FIB PER TELEMETRY, CONTROLLED RATE. NONLABORED RESPIRATIONS ON ROOM AIR. SALINE LOCK TO LEFT HAND. PT TEACHING ON S/S OF CHF, WEIGHING DAILY AND REPORTING TO MD ANY WEIGHT INCREASE. PT VOICED UNDERSTANDING. MONITOR AND CPOC.
--- NOTE | 2018-08-11 01:42 | NUR ---
PT RESTING WITH NO DISTRESS. RESPS EVEN/NONLABORED. MONITOR AND CPOC.
[2018-08-11 04:00] VITALS: BP 120/74
[2018-08-11 04:45] LABS: BASOPHILS 0.1 % (0-2); EOSINOPHILS 3.4 % (0-7); HEMATOCRIT 36.5 % (42.0-54.0); HEMOGLOBIN 12.9 g/dL (13.5-17.5); IMMATURE GRANULOCYTES 0.1 % (0-5); LYMPHOCYTES 18.8 % (15-50); MCH 32.2 pg (26.0-34.0); MCHC 35.3 g/dL (31.0-37.0); MEAN PLATELET VOLUME 10.3 fL (7.4-10.4); MONOCYTES 7.8 % (2-11); NEUTROPHILS 69.8 % (40-80); PLATELET COUNT 149 10x3/uL (130-400); RBC 4.01 10x6/uL (4.20-6.10); RDW 13.7 % (11.5-14.5); WBC 7.3 10x3/uL (4.8-10.8)
[2018-08-11 05:11] LABS: ALBUMIN 3.3 g/dL (3.4-5.0); ANION GAP 15.4 mmol/L (8-16); BILIRUBIN - TOTAL 0.67 mg/dL (0.2-1.3); CALCIUM 9.1 mg/dL (8.5-10.1); CARBON DIOXIDE 22.7 mmol/L (21.0-32.0); CREATININE - SERUM 1.1 mg/dL (0.6-1.3); POTASSIUM - SERUM 4.1 mmol/L (3.5-5.1); PROTEIN - SERUM 6.6 g/dL (6.4-8.2)
--- NOTE | 2018-08-11 07:58 | NUR ---
REFUSES SCDS AT THIS TIME.
[2018-08-11 08:33] VITALS: BP 129/79
[2018-08-11 09:34] VITALS: Ht 182.9 cm; Wt 101.6 kg
--- NOTE | 2018-08-11 09:49 | NUR ---
TELEMETRY SR. CALL LIGHT IN REACH. WILL CONT. PLAN OF CARE.
[2018-08-11] MEDS ORDERED: TOPROL XL50 MG PO (12:04)
[2018-08-11 12:16] VITALS: BP 123/86
[2018-08-11] MEDS ORDERED: METOPROLOL TART50 MG PO (12:20)
--- NOTE | 2018-08-11 12:45 | NUR ---
ECHO COMPLETED AT BS.
--- NOTE | 2018-08-11 13:36 | NUR ---
IV AND TELEMETRY DCD. DC PLANS GIVEN. UNDERSTANDING VOICED. ESCORTED TO CAR BY W/C.
--- NOTE | 2018-08-13 08:27 | MORECARE ---
CASE MANAGEMENT DISCHARGE SUMMARY PATIENT: MJ GUTIERREZ UNIT: [id number] ADM DATE: 08/10/18 AGE: 82 : 34 SEX: M ROOM/BED: D.2118 AUTHOR: BARRY SUE PHYSICIAN: REFERRING PHYSICIAN: ROHITH MENG MD DATE OF SERVICE: 08/13/18 Discharge Plan Patient Name: [facility]J [facility]UTIERREZ [facility] [facility] 1935 Planned Disposition: Home Anticipated Discharge Date: 08/11/18 Discharge Date: 08/11/2018 Expected LOS: 1 Initial Reviewer: [email or web address] Initial Review Date: 08/13/2018 Generated: 08/13/18 9:26 am Patient Name: MJ GUTIERREZ Page [id number] at 0827 All edits/amendments must be made on the electronic document DICTATION DATE: 08/13/18825 HVAC TECHNICIAN: ISAAC 08/13/18825 RPT#: [id number] DC DATE:08/11/18 STATUS: DIS IN [facility] [address] [place] [address] END OF REPORT
== END 2018-08-11 13:37 | disposition home or self-care (01) | DRG 293 ==
LOC: D.ER 10:59 → D.M2 15:44
PROVIDERS: Emergency Medicine; ADMIT Family Medicine; ATTEND Family Medicine
DX: I11.0 Hypertensive heart disease with heart failure (principal); I50.23 Acute on chronic systolic (congestive) heart failure; I48.2 Chronic atrial fibrillation; I42.0 Dilated cardiomyopathy; R94.30 Abnormal result of cardiovascular function study, unspecified; I44.7 Left bundle-branch block, unspecified; E11.9 Type 2 diabetes mellitus without complications; I25.10 Atherosclerotic heart disease of native coronary artery without angina pectoris

== ENCOUNTER 2018-08-25 06:16 | Inpatient (IN) | payer MEDICARE ==
[~2018-08-25 06:16] MED LIST changes: +METOPROLOL TART50 MG PO; +TOPROL XL50 MG PO
[2018-08-25] MEDS ORDERED: ESTRACE 0.5 MG0.5 MG PO (06:28)
[2018-08-25] MEDS ORDERED: ASPIRIN EC81 M1 (06:30)
[2018-08-25 06:36] VITALS: BP 153/87
[2018-08-25 06:44] VITALS: BP 125/65
[2018-08-25 06:49] LABS: BASOPHILS 0.3 % (0-2); EOSINOPHILS 4.8 % (0-7); HEMATOCRIT 38.9 % (42.0-54.0); HEMOGLOBIN 13.5 g/dL (13.5-17.5); IMMATURE GRANULOCYTES 0.1 % (0-5); MCHC 34.7 g/dL (31.0-37.0); MCV 92.2 fL (80.0-100.0); MEAN PLATELET VOLUME 10.6 fL (7.4-10.4); NEUTROPHILS 69.8 % (40-80); RBC 4.22 10x6/uL (4.20-6.10); RDW 14.1 % (11.5-14.5); WBC 7.7 10x3/uL (4.8-10.8)
[2018-08-25 06:53] LABS: PLATELET COUNT 199 10x3/uL (130-400)
[2018-08-25 07:21] LABS: APTT 41.3 SECONDS (22.8-39.4); INR 2.22 (0.85-1.17); PROTIME 23.9 SECONDS (11.6-15.0)
[2018-08-25 07:24] LABS: ALBUMIN 3.5 g/dL (3.4-5.0); ALKALINE PHOSPHATASE 46 U/L (46-116); ALT (SGPT) 17 U/L (10-68); BILIRUBIN - TOTAL 0.79 mg/dL (0.2-1.3); CALC OSMOLALITY 275 mosm/kg (275-300); CALCIUM 9.1 mg/dL (8.5-10.1); CARBON DIOXIDE 21.4 mmol/L (21.0-32.0); CHLORIDE - SERUM 103 mmol/L (98-107); CREATININE - SERUM 1.2 mg/dL (0.6-1.3); GLUCOSE 147 mg/dL (74-106); POTASSIUM - SERUM 3.8 mmol/L (3.5-5.1); PROTEIN - SERUM 6.9 g/dL (6.4-8.2); SODIUM 136 mmol/L (136-145); UREA NITROGEN 14 mg/dL (7-18); eGFR NON AFRICAN AMERICAN 61 mL/min (90-120)
[2018-08-25 07:31] LABS: CKMB 1.2 U/L (0.0-3.6); CREATINE KINASE 48 UL (21-232); MAGNESIUM - SERUM 1.7 mg/dL (1.8-2.4)
[2018-08-25 07:35] LABS: TROPONIN-I 0.016 ng/mL (0.000-0.060)
[2018-08-25 08:13] VITALS: BP 126/72
[2018-08-25 08:18] VITALS: BP 144/80
--- NOTE | 2018-08-25 08:44 | NUR ---
PATIENT FOUND SITTING IN ROOM ON BED. PATIENT STATES HE WAS BROUGHT TO ROOM 2103 VIA WHEELCHAIR. PATIENT ALERT/ORIENTED. CALL LIGHT WITHIN IN REACH. IV SITE TO RIGHT HAND. TELEMETRY APPLIED.
[2018-08-25] MEDS ORDERED: ENTRESTO 24 MG1 EACH (09:41)
[2018-08-25 09:55] VITALS: BP 126/72; BMI 31.6
--- NOTE | 2018-08-25 11:37 | NUR ---
1100 20 GAUGE IV REMOVED FROM RIGHT HAND. CATHETER TIP INTACT. PRESSURE HELD X 30 SECONDS. NO BLEEDING FROM SITE. 2X2 GAUZE APPLIED AND SECURED WITH BANDAID. PATIENT TOLERATED IV REMOVAL WELL. 1105 DISCHARGE INSTRUCTIONS PROVIDED. PATIENTS FAMILY UPSET AND DO NOT UNDERSTAND WHY HE IS BEING DISCHARGED WITHOUT HAVING ANY INTERVENTION TO MAKE SURE HE DOES NOT NEED A STENT. LABS EXPLAINED, MEDS (LASIX GIVEN IN ER) EXPLAINED AND ENCOURAGED TO CALL OFFICE MONDAY TO GET AN APPT SOONER THAN WHAT HE HAS ALREADY SCHEDULED. PATIENT VERBALIZED UNDERSTANDING OF ALL INSTRUCTIONS PROVIDED. 1125 PATIENT LEFT UNIT VIA WHEELCHAIR WITH ALL PERSONAL BELONGINGS. PATIENT DROVE SELF TO HOSPITAL THIS AM AND WILL DRIVE HIMSELF HOME. PATEINT IN NO DISTRESS HE WAS DISCHARGED TO HOME FOR SELF CARE.
--- NOTE | 2018-08-27 07:57 | MORECARE ---
CASE MANAGEMENT DISCHARGE SUMMARY PATIENT: MJ GUTIERREZ UNIT: [id number] ADM DATE: 08/25/18 AGE: 82 : 34 SEX: M ROOM/BED: D.2104 AUTHOR: BARRY SUE PHYSICIAN: REFERRING PHYSICIAN: ANITRA LEUNG MD DATE OF SERVICE: 08/27/18 Discharge Plan Patient Name: [facility]IER[facility] [facility] 1935 Planned Disposition: Home Anticipated Discharge Date: 08/25/18 Discharge Date: 08/25/2018 Expected LOS: 1 Initial Reviewer: [email or web address] Initial Review Date: 08/27/2018 Generated: 08/27/18 8:56 am Patient Name: MJ GUTIERREZ Page 00366 at 0757 All edits/amendments must be made on the electronic document DICTATION DATE: 08/27/18 0756 ROUTE SALESMAN: ISAAC 08/27/18 0756 RPT#: [id number] DC DATE:08/25/18 STATUS: DIS IN [facility] [address] [place] [address] END OF REPORT
--- NOTE | 2018-08-27 09:50 | HP ---
PATIENT: MJ WASHINGTON MEDICAL RECORD: [id number] ACCOUNT: [id number] LOCATION:[address] : 33 ADMISSION DATE: 08/25/18 PCP: ROHITH MENG MD HISTORY AND PHYSICAL EXAMINATION ADMITTING DIAGNOSES: 1. Shortness of breath - dyspnea on exertion. 2. Congestive heart failure, chronic systolic dysfunction. 3. Dilated cardiomyopathy. 4. Coronary artery disease. 5. Previous multivessel PTCA and stent. 6. Atrial fibrillation, chronic. 7. Abnormal ECG, left bundle-branch block, atrial fibrillation. 8. Hypertension. HISTORY OF PRESENT ILLNESS: Mr. Washington presents with mild shortness of breath, dyspnea on exertion. He received 1 dose of IV Lasix in the ER, has had good urine output. His breathing is back to baseline now. He does have cardiomyopathy; however, last time we did an echocardiogram, which was within the last month, showed an improvement in his ejection fraction in the 40% range previously. This was in the 20% to 30% range. He does have a history of coronary artery disease, but he is not having any anginal symptomatology. Troponin is normal. PHYSICAL EXAMINATION: GENERAL APPEARANCE: Well-nourished, well-developed, appears stated age. Level of distress, comfortable. PSYCHIATRIC: Mental status, alert, normal affect. Orientation, oriented to time, place and person. EYES: Lids and conjunctiva, noninjected. No discharge, no pallor. ENT: Lips, teeth, gums, normal dentition. Oropharynx, no cyanosis, no pallor. NECK: Carotid arteries, bilateral normal upstroke, no bruits, no thrills. JUGULAR VEINS: No jugular venous pressure or distention. CERVICAL LYMPH NODES: Nontender, nonenlarged. THYROID: Not enlarged. Nontender. No nodules. LUNGS: Respiratory effort, unlabored. CHEST: Normal curvature. No thoracic deformity. No chest wall tenderness. Percussion, resonant. Auscultation, clear. No wheezes, no rales, no rhonchi. CARDIOVASCULAR: Precordial exam, nondisplaced. No heaves or pericardial thrills. Rate and rhythm, regular. Heart sounds, normal S1, normal S2. No S3, no gallop, no rub. Systolic murmur, not heard. Diastolic murmur, not heard. EXTREMITIES: No cyanosis, no edema. Peripheral pulses, full and equal in all extremities, except as noted. No bruits appreciated. ABDOMEN: Soft, nondistended. Normal aorta. No bruit. Nontender. No masses. Liver, nontender, no hepatomegaly. Spleen, nontender, no splenomegaly. MUSCULOSKELETAL: No joint tenderness. No joint swelling. No erythema. NEUROLOGICAL: Normal gait, normal strength, normal tone. SKIN: Warm and dry. OVERALL IMPRESSION: Shortness of breath, dyspnea on exertion, resolved with 1 dose of IV Lasix and diuresis. This was mild pulmonary edema from congestive heart failure. At this time, no other cardiac workup or treatment is necessary. TRANSINT:[id number] Voice Confirmation ID: [id number] DOCUMENT ID: [id number] HISTORY AND PHYSICAL [id number] MJ WASHINGTON JEFFREY MD at 0950 CC: [id number] DICTATION DATE: 08/25/18 1158 MICA SPLITTER: 08/25/18 1208 DIS IN 08/25/18 [facility] [address] [place] [address]
--- NOTE | 2018-08-27 09:50 | DS ---
PATIENT:MJ WASHINGTON :33 MEDICAL RECORD: [id number] DISCHARGE SUMMARY ADMISSION DATE: 08/25/18 DISCHARGE DATE: 08/25/18 DATE OF DISCHARGE: 08/25/2018 DIAGNOSES: 1. Congestive heart failure with chronic systolic dysfunction. 2. Cardiomyopathy. 3. Coronary artery disease. 4. Hypertension. 5. Atrial fibrillation, chronic. HOSPITAL COURSE: Mr. Washington presents with shortness of breath, dyspnea on exertion that resolved after 1 dose of IV Lasix and discharged home with no changes in the medications. Follow up with [facility] in 1 month. TRANSINT:[id number] Voice Confirmation ID: [id number] DOCUMENT ID: [id number] ANITRA LEUNG MD at 0950 CC: [id number] DICTATION DATE: 08/25/18 1158 [employer]ISHER [employer]: 08/25/18 2358 DIS IN 08/25/18 [facility] [address] [place] [address]
== END 2018-08-25 11:25 | disposition home or self-care (01) | DRG 293 ==
LOC: D.ER 06:16 → D.M2 07:31
PROVIDERS: Family Medicine; ADMIT Internal Medicine Interventional Cardiology; ATTEND Internal Medicine Interventional Cardiology
DX: I11.0 Hypertensive heart disease with heart failure (principal); I50.22 Chronic systolic (congestive) heart failure; I48.2 Chronic atrial fibrillation; I25.10 Atherosclerotic heart disease of native coronary artery without angina pectoris; I44.7 Left bundle-branch block, unspecified; I42.0 Dilated cardiomyopathy

== ENCOUNTER 2019-01-11 08:29 | Outpatient (CLI) | payer MEDICARE ==
[~2019-01-11] VITALS: Ht 182.9 cm; Wt 100.0 kg
[2019-01-11] VITALS (11 sets, daily range): BP systolic 114–136; BP diastolic 61–72; Ht 182.9 cm; Wt 100.0 kg
--- NOTE | ~2019-01-11 | HEMODYNAMI ---
PATIENT:MJ GUTIERREZ MEDICAL RECORD: [id number] : 33 LOCATION:[facility] ADMISSION DATE: 01/11/19 Generatedon:01/11/201911:29 Patient name: MJ GUTIERREZ Patient #: [id number] SSN: [id number] : 1935 Date of study: 01/11/2019 Page: Of Hemodynamic Procedure Report Patient Data Patient Demographics Procedure consent was obtained First Name: MJ Gender: Male Last Name: MATT : 1935 Middle Initial: L Age: 83 year(s) Patient #: [id number] Race: SSN: [id number] Additional ID: [id number] Contact details Address: [address] [place] [address] State: [place] City: [place] Zip code: [address] Past Medical History Allergies: No known allergies Admission Admission Data Admission Date: 01/11/2019 Admission Time: 8:29 Arrival Date: 01/11/2019 Arrival Time: 0:00 Height (in.): 71.97 BSA: 2.22 (m2) Height (cm.): 182.8 BMI: 29.93 (kg/m2) Weight (lbs.): 220.46 Weight (kg.): 100 Lab Results Lab Result Date: 01/11/2019 Lab Result Time: 0:00 Biochemistry Name Units Result Min Max BUN mg/dl 21 --(----)-* 7 18 Creatinine mg/dl 1.3 --(---*)-- 0.6 1.3 eGFR ml/min 56 *-(----)-- 90 120 NONAFRICAN CBC Name Units Result Min Max Hematocrit % 38.6 *-(----)-- 42 54 Hemoglobin g/dl 13.3 -*(----)-- 13.5 17.5 Procedure Procedure Types Cath Procedure Diagnostic Procedure [facility] w/Coronaries FFR/IVUS FFR Initial FFR Additional PCI Procedure Coronary Stent Coronary Stent Initial PTCA PTCA Initial Procedure Description Procedure Date Procedure Date: 01/11/2019 Procedure Start Time: 11:00 Procedure End Time: 11:26 Procedure Staff Name Function Keith Grider MD Performing Physician Zahira King RT Monitor Vesta Connor RT Scrub Anusha White RN Nurse Procedure Data Cath Procedure Fluoroscopy Diagnostic fluoroscopy Total fluoroscopy Time: 4.9 time: 4.9 min min Diagnostic fluoroscopy Total fluoroscopy dose: 881 dose: 881 mGy mGy Contrast Material Contrast Material Type Amount (ml) Isovue 300 137 Entry Location Entry Primary Successful Side Size Upsize Upsize Entry Closure Succes sful Closure Location (Fr) 1 (Fr) 2 (Fr) Remarks Device Remarks Femoral Right 5 Fr 6 Fr Exoseal artery Short Estimated blood loss: 10 ml Diagnostic catheters Device Type Used For End Catheter Placement MULTIPACK Pigtail 5 Fr Procedure catheter MULTIPACK JL 4.0 5Fr Procedure catheter MULTIPACK 3DRC 5Fr Procedure catheter Procedure Complications No complications Procedure Medications Medication Administration Route Dosage Oxygen 8 l/min Lidocaine 2% added to field 20 Heparin Flush Bag added to field 2 bags (1000units/500ml NS) 0.9% NaCl I.V. 100 ml/hr Versed I.V. 1 mg Fentanyl I.V. 50 mcg Versed I.V. 1 mg Fentanyl I.V. 50 mcg Versed I.V. 1 mg Fentanyl I.V. 50 mcg Heparin Bolus I.V. 4000 units Integrilin (Bolus I.V. 9 ml 2mg/ml) Plavix P.O. 600 mg Hemodynamics Rest BSA: 2.22 (m2) HGB: 13.3 (g/dl) O2 Consumption: Estimated: 239.44 (ml/min) O2 Co nsumption indexed: Estimated:107.86 (ml/min/m) Heart Rate: 55 (bpm) Snapshots Pre Cath Intra NCS Post Cath Vital Signs Time Heart Resp SPO2 etCO2 NIBP (mmHg) Rhythm Pain Sedation Rate (ipm) (%) (mmHg) Status Level (bpm) 10:45:14 60 16 97 0 133/81(108) A-Fib 0 (11) 10(A) , No pain 10:50:43 58 17 99 0 129/72(104) A-Fib 0 (11) 10(A) , No pain 10:55:03 54 14 98 0 114/62(90) A-Fib 0 (11) 10(A) , No pain 10:59:18 56 22 98 0 113/71(87) A-Fib 0 (11) 10(A) , No pain 11:03:31 49 12 97 0 125/64(97) A-Fib 0 (11) 9(A) , No pain 11:07:41 49 17 97 0 100/64(88) A-Fib 0 (11) 9(A) , No pain 11:11:51 41 17 96 0 99/60(79) A-Fib 0 (11) 9(A) , No pain 11:16:03 46 18 96 0 97/56(72) A-Fib 0 (11) 9(A) , No pain 11:20:13 46 13 96 0 91/53(69) A-Fib 0 (11) 10(A) , No pain 11:24:23 43 23 96 0 102/52(89) A-Fib 0 (11) 10(A) , No pain Medications Time Medication Route Dose Verified Delivered Reason Notes Effectiveness by by 10:48:43 Oxygen simple 8 Keith Buffie used for pt mask l/min Cheo White RN procedure uses cpap with mask at night 10:49:29 Lidocaine 2% added 20ml Keith Keith for local to vial Cheo Grider MD anesthetic field 10:49:38 Heparin Flush added 2 Keith Keith used for Bag to bags Cheo Grider MD procedure (1000units/500ml field NS) 10:49:44 0.9% NaCl I.V. 100 Keith Buffie Per physician ml/hr Cheo White RN 10:56:24 Versed I.V. 1 mg Keith Buffie for sedation Cheo White RN 10:56:30 Fentanyl I.V. 50 Keith Buffie for sedation mcg Cheo White RN 11:02:38 Versed I.V. 1 mg Keith Buffie for sedation Cheo White RN 11:02:42 Fentanyl I.V. 50 Keith Buffie for sedation mcg Cheo White RN 11:06:59 Versed I.V. 1 mg Keith Buffie for sedation Cheo White RN 11:07:02 Fentanyl I.V. 50 Keith Buffie for sedation mcg Cheo White RN 11:10:23 Heparin Bolus I.V. 4000 Keith Tavares for units Cheo White RN anticoagulation 11:14:30 Integrilin I.V. 9 ml Keith Tavarse for wasted (Bolus 2mg/ml) Cheo White RN antiplatelet 1 ml therapy of vial 11:22:41 Plavix P.O. 600 Keith Tavares for mg Cheo White RN antiplatelet therapy Procedure Log Time Note 10:24:59 Anusha White RN sent for patient. Start room use. 10:31:41 Time tracking: Regular hours (M-F 7:00 - 5:00) 10:31:46 Procedure Status Elective Heart Cath (OP). 10:31:52 Plan of Care:Hemodynamics will remain stable., Cardiac rhythm will remain stable., Comfort level will be maintained., Respiratory function will remain adequate., Patient/ family verbilizes understanding of procedure., Procedure tolerated without complication., Recovers from procedure without complications.. 10:31:57 H&P Date Dictated: 01/11/2019 New H&P dictated by physician.. 10:34:34 Patient Weight : 220.46 lbs 10:34:41 Patient Height : 71.97 inches 10:34:46 Arrival Date: 01/11/2019 12:00:00 AM 10:35:44 Lab Result : Hematocrit 38.6 % 10:35:44 Lab Result : eGFR NONAFRICAN 56 ml/min 10:35:44 Lab Result : Hemoglobin 13.3 g/dl 10:35:44 Lab Result : BUN 21 mg/dl 10:35:44 Lab Result : Creatinine 1.3 mg/dl 10:37:00 Patient allergic to No known allergies 10:38:43 Patient received from Pre/Post Procedure Room to CCL 1 Alert and oriented. Tansferred to table in Supine position. 10:38:47 Signed procedure consent form obtained from patient. 10:38:48 Warm blankets applied, and america hugger turned on for patient comfort. 10:38:48 Correct patient and procedure confirmed by team. 10:38:49 ECG and BP/O2 sat monitors applied to patient. 10:38:58 Lab results completed and on chart. 10:39:02 Risk of Mortality: .4 10:39:04 Risk of blood transfusion: .7 10:39:07 Risk of CHEO: .9 10:44:07 Vital chart was started 10:47:14 Baseline sample Acquired. 10:47:31 Full Disclosure recording started 10:47:32 Pre-procedure instructions explained to patient. 10:47:33 Pre-op teaching completed and patient verbalized understanding. 10:47:35 Family unavailable. 10:47:37 Patient NPO since Midnight. 10:47:39 Is the patient allergic to Iodine/contrast media? No. 10:47:41 Is patient on blood thinner?Yes 10:48:00 XARELTO 2DAYS AGO 10:48:02 Patient diabetic? Yes. 10:48:03 If diabetic: On Metformin? No 10:48:10 Previous problem with sedation/anesthesia? No ? 10:48:12 Snore? Yes 10:48:13 Sleep apnea? No 10:48:14 Deviated septum? No 10:48:15 Opens mouth fully? Yes 10:48:16 Sticks out tongue? Yes 10:48:18 Airway obstruction? No ? 10:48:22 Dentures? No NO 10:48:25 Pre procedure: right dorsailis pedis pulse 1+ Palpable, but thready & weak; easily obliterated 10:48:32 Patient pain scale 0/10 ?. 10:48:43 Oxygen 8 l/min simple mask was administered by Anusha White RN; used for procedure; pt uses cpap with mask at night Verbal order read back and verified. 10:48:49 IV patent on arrival in left forearm with 0.9% NaCl at [facility]. 10:48:56 Right groin area was prepped with chlora-prep and draped in sterile fashion 10:48:57 Alarms reviewed by R. N. 10:48:57 Sharps counted by scrub and verified by R.N. 10:49:29 Lidocaine 2% 20ml vial added to field was administered by Keith Grider MD; for local anesthetic; Verbal order read back and verified. 10:49:38 Heparin Flush Bag (1000units/500ml NS) 2 bags added to field was administered by Keith Grider MD; used for procedure; Verbal order read back and verified. 10:49:44 0.9% NaCl 100 ml/hr I.V. was administered by Anusha White RN; Per physician; Verbal order read back and verified. 10:50:11 Baseline sample Acquired. 10:50:18 Rhythm: atrial fibrillation 10:53:54 Use device set Femoral Dx 10:53:55 ACIST Syringe (08669) opened to sterile field. 10:53:55 Bag Decanter (2002S) opened to sterile field. 10:53:56 ACIST Hand Control (81938) opened to sterile field. 10:53:57 ACIST Manifold (03118) opened to sterile field. 10:53:58 Tegaderm 4 x 4 (1626W) opened to sterile field. 10:54:11 Medline Cath Pack ([id number]) opened to sterile field. 10:54:11 DIAGNOSTIC Multipack 5Fr catheter set (MH6126) opened to sterile field. 10:54:12 SHEATH 5FR Hamilton (HVC218) opened to sterile field. 10:54:13 EMERALD Guide Wire (743-987) opened to sterile field. 10:55:01 --------ALL STOP TIME OUT------ 10:55:01 Final Timeout: patient, procedure, and site verified with staff and physician. All members of the team are in agreement. 10:55:02 Right groin site verified by team. 10:55:05 Fire Safety Assessment: A--An alcohol-based skin anteseptic being used preoperatively., C--Open oxygen or nitrous oxide is being used., D--An ESU, laser, or fiber-optic light is being used. 10:55:14 Physical assessment completed. ASA score P 2 - A patient with mild systemic disease as per Keith Grider MD. 10:55:19 3a) 45-59 Moderately reduced kidney function. 10:55:22 Maximum allowable contrast dose (3.7 X eGFR X 0.75)155 ml. 10:55:25 Sedation plan: IV Moderate Sedation Medication:Versed, Fentanyl 10:56:24 Versed 1 mg I.V. was administered by Anusha White RN; for sedation; Verbal order read back and verified. 10:56:30 Fentanyl 50 mcg I.V. was administered by Anusha White RN; for sedation; Verbal order read back and verified. 11:00:33 Procedure started. 11:00:39 Local anesthetic to right femoral artery with Lidocaine 2% by Keith Grider MD.INITIAL ACCESS ONLY 11:00:44 Zero performed for pressure channel P1 11:01:00 Zero performed for pressure channel P1 11::12 Zero performed for pressure channel P1 11::20 Zero performed for pressure channel P1 11::45 A 5 Fr sheath was inserted into the Right Femoral artery 11::57 A MULTIPACK Pigtail 5 Fr catheter was advanced over the wire and used for Procedure. 11:02:00 LV gram done using AMADO 11::02 Injector settings: Ml/sec: 10, Volume: 20, 11::38 Versed 1 mg I.V. was administered by Anusha White RN; for sedation; Verbal order read back and verified. 11::42 Fentanyl 50 mcg I.V. was administered by Anusha White RN; for sedation; Verbal order read back and verified. 11::56 EF : 30 % 11::58 Catheter removed. 11:03:03 A MULTIPACK JL 4.0 5Fr catheter was advanced over the wire and used for Procedure. 11:04:59 LCA angiography performed. 11:05:02 Catheter removed. 11:05:07 A MULTIPACK 3DRC 5Fr catheter was advanced over the wire and used for Procedure. 11:05:57 RCA angiography performed. 11:05:58 Catheter removed. 11:06:12 INFLATOR Merit BasixCompak (ML4602) opened to sterile field. 11:06:13 SHEATH 6FR Hamilton (LKP606) opened to sterile field. 11:06:13 [place]road Verrata Plus pressure wire (65682M) opened to sterile field. 11:06:23 GUIDE 6FR XB 3.5 catheter ([id number]) opened to sterile field. 11:06:33 Sheath upsized to a 6 Fr Short. 11:06:59 Versed 1 mg I.V. was administered by Anusha White RN; for sedation; Verbal order read back and verified. 11:07:02 Fentanyl 50 mcg I.V. was administered by Anusha White RN; for sedation; Verbal order read back and verified. 11:07:03 6 Fr XB 3.5 guide catheter was inserted over the wire 11:08:24 FFR/IFR wire advanced. 11:09:10 mCirc lesion measured at .96 with IFR 11:09:21 Wire redirected to LAD. 11:09:34 mLAD lesion measured at .80 with IFR 11:10:23 Heparin Bolus 4000 units I.V. was administered by Anusha White RN; for anticoagulation; Verbal order read back and verified. 11:11:15 CHOICE PT Extra Support 182cm wire ([id number]) opened to sterile field. 11:11:53 Pre PCI Site: [place] mLAD has 70% stenosis. 11:11:58 Pre PCI Site: [place] Diag1 has 95% stenosis. 11:12:00 IFR WIRE REMOVED 11:12:07 CHOICE ES 182 wire advanced TO THE DIAG 11:13:55 Inflate balloon Inflation number: 1 A EUPHORA 2.5 x 15 Balloon ([id number]) was prepped and advanced across the 1st Diag , then inflated to 17 ELDER for 0:00 (min:sec) . 11:14:14 Balloon removed over the wire. 11:14:30 Integrilin (Bolus 2mg/ml) 9 ml I.V. was administered by Anusha White RN; for antiplatelet therapy; wasted 1 ml of vial Verbal order read back and verified. 11:16:27 Place stent Inflation Number: 2 A MANDY RX 2.5 x 15 stent ([id number]) was prepped and advanced across the 1st Diag . The stent was deployed at 17 ELDER for 0:00 (min:sec) . 11:16:42 Stent catheter was removed intact over wire. 11:17:12 CHOICE WIRE REMOVED 11:17:21 FFR/IFR wire advanced. 11:18:12 Wire advanced across LAD. 11:18:29 Inflate balloon Inflation number: 1 A EUPHORA 3.5 x 15 Balloon ([id number]) was prepped and advanced across the Mid LAD , then inflated to 21 ELDER for 0:00 (min:sec) . 11:18:52 Balloon removed over the wire. 11:19:31 mLAD lesion measured at .99 with IFR 11:19:38 Wire removed. 11:19:39 Guide catheter removed. 11:20:07 EXOSEAL 6Fr (EX600) opened to sterile field. 11:20:52 Sheath removed intact; hemostasis achieved with Exoseal to the Right Femoral artery. 11:20:54 Procedure ended.(Physican Out) 11:21:19 Fluoroscopy time 04.90 minutes. 11:21:22 Fluoroscopy dose: 881 mGy 11:21:22 Flurop Dose total: 881 11:21:33 Dose Area Product 13094 mGy/cm. 11:21:37 Contrast amount:Isovue 300 137ml. 11:21:40 Maximum allowable dose exceeded? No. 11::55 Sharps counted by scrub and verified by R.N. 11:21:58 Post-op/insertion site Right Femoral artery dressed using a 4 x 4 and Tegaderm. 11:22:00 Post-procedure physical assessment completed. ASA score P 2 - A patient with mild systemic disease as per Keith Grider MD. 11:22:04 Post procedure rhythm: unchanged. 11:22:06 Estimated blood loss: 10 ml 11:22:07 Post procedure instruction explained to patient.Patient verbalizes understanding. 11:22:08 Patient needs reinforcement of post procedure teaching. 11:22:41 Plavix 600 mg P.O. was administered by Anusha White RN; for antiplatelet therapy; Verbal order read back and verified. 11:23:04 Procedure type changed to Cath procedure, Diagnostic procedure, C, [facility] w/Coronaries, FFR/IVUS, FFR Initial, FFR Additional, PCI procedure, Coronary Stent, Coronary Stent Initial, PTCA, PTCA Initial 11:24:12 Procedure and supply charges have been captured, reviewed, submitted and are correct. 11:24:15 Procedure Complication : No complications 11:24:19 [facility] Findings: MVD- PCI performed (see procedure note) 11:24:20 Operative report dictated upon procedure completion. 11:24:21 See physician's report for complete and final results. 11:24:23 Report given to [facility]. 11:24:26 Patient transfered to [facility] with Bed. 11:24:32 ACC-PCI Only Patient was given prescriptions, or instructed by Anusha White RN to start/continue the following medications upon discharge: Plavix 11::05 Vital chart was stopped 11::07 Procedure ended. 11:26:07 Full Disclosure recording stopped 11:26:12 End room use (Document Last) 11::23 ACT drawn and resulted at 266 seconds. (normal therapeutic range 180-240 seconds). Intervention Summary Intervention Notes Time ActionType Lesion and Equipment Used Action# Pressure Duration Attributes 11:13:55 Inflate 1st Diag EUPHORA 2.5 x 1 17 00:00 balloon 15 Balloon ([id number]) 11:16:27 Place stent 1st Diag MANDY RX 2.5 x 2 17 00:00 15 stent ([id number]) 11:18:29 Inflate Mid LAD EUPHORA 3.5 x 1 21 00:00 balloon 15 Balloon ([id number]) Device Usage Item Name Manufacture Quantity Catalog Number Hospital Part Current Minimal Lot# / Charge Number Stock Stock Serial# Code ACIST Syringe Acist 1 30792 051152 181789 946674 20 (70976) Medical Systems Attentive.ly Bag Decanter Microtek 1 2001S 612535 12719 901923 5 (2001S) Medical Inc. ACIST Hand Acist 1 59912 231538 321719 517927 5 Control Medical (30170) Systems Inc ACIST Manifold Acist 1 71756 090647 090584 788116 5 (09841) Medical Systems Inc Tegaderm 4 x 4 3M 1 1626W 121975 104613 784734 5 (1626W) Medline Cath Medline 1 [id number] 639370 28746 109750 5 Pack ([id number]) DIAGNOSTIC Cardinal 1 XU0798 247886 58916 989992 30 Multipack 5Fr Health catheter set (BE0840) SHEATH 5FR Terumo 1 LAK606 311882 367380 815219 5 Hamilton (JEA092) EMERALD Guide Cardinal 1 502-455 670185 600284 353748 5 Wire (502-455) Health MULTIPACK Cardinal 1 704515 5 Pigtail 5 Fr Health catheter MULTIPACK JL Cardinal 1 825180 5 4.0 5Fr Health catheter MULTIPACK 3DRC Cardinal 1 772101 5 5Fr catheter Health INFLATOR Merit Merit 1 MV3165 511396 286983 695466 15 Noble Biomaterials Medical (XI9491) SHEATH 6FR Terumo 1 OVI408 720300 852315 187243 40 Hamilton (UOT576) Warroad Warroad 1 56081I 827045 919519799 807627 5 Verrata Plus pressure wire (02250G) GUIDE 6FR XB Cardinal 1 [id number] 052796 317198 223619 2 3.5 catheter Health (34880367) CHOICE PT Concord 1 [id number] 018346 233264 712581 5 Extra Support Scientific 182cm wire (0241290T3) EUPHORA 2.5 x Medtronic 1 [id number] 595903 622899 928433 5 [id number] 15 Balloon ([id number]) MANDY RX 2.5 x Medtronic 1 [id number] 361810 9530296 927356 5 [id number] 15 stent ([id number]) EUPHORA 3.5 x Medtronic 1 [id number] 685152 441715 617901 5 [id number] 15 Balloon ([id number]) EXOSEAL 6Fr Cardinal 1 EX600 677806 432277 065281 10 (EX600) Health Signature Audit [place] Stage Time Signature Unsigned Intra-Procedure 01/11/2019 Zahira King 11:28:51 AM RT(R) Intra-Procedure 01/11/2019 Anusha White RN 11:29:09 AM Intra-Procedure 01/11/2019 Keith Grider 11:29:[address] [address]
[~2019-01-11 08:29] MED LIST changes: +ASPIRIN EC81 M1; +ENTRESTO 24 MG1 EACH; +ESTRACE 0.5 MG0.5 MG PO
[2019-01-11] MEDS ORDERED: FIBER-TABS625 MG PO (08:45)
[2019-01-11] MEDS ORDERED: ENTRESTO 24 MG1 EACH PO (08:45)
[2019-01-11 09:33] LABS: HEMATOCRIT 38.6 % (42.0-54.0); HEMOGLOBIN 13.3 g/dL (13.5-17.5); LYMPHOCYTES 16.8 % (15-50); MCHC 34.5 g/dL (31.0-37.0); MCV 92.8 fL (80.0-100.0); MEAN PLATELET VOLUME 10.8 fL (7.4-10.4); NEUTROPHILS 76.6 % (40-80); RBC 4.16 10x6/uL (4.20-6.10); RDW 13.6 % (11.5-14.5); WBC 7.5 10x3/uL (4.8-10.8)
[2019-01-11 09:36] LABS: PLATELET COUNT 156 10x3/uL (130-400)
[2019-01-11 09:41] LABS: ANION GAP 15.3 mmol/L (8-16); CARBON DIOXIDE 19.8 mmol/L (21.0-32.0); CHOL - HDL RATIO 2.9 ratio (2.3-4.9); CREATININE - SERUM 1.3 mg/dL (0.6-1.3); LDL-HDL RATIO 1.3 ratio (1.5-3.5); POTASSIUM - SERUM 4.1 mmol/L (3.5-5.1)
--- NOTE | 2019-01-11 11:51 | NUR ---
PT ARRIVED TO UNIT VIA BED LAYING FLAT. O2 AT 2L VIA NC. RIGHT GROIN SOFT, SHOWS NO S/S OF HEMATOMA, DRESSING C/D/I. PT IS ALERT AND ORIENTED. PT'S SPEECH IS MUMBLED/GARBLED AT TIMES. PP CHECKED. PT HAD X1 STENT PLACED IN THE DIAGONAL AND X1 BALLOON ANGIOPLASTY LAD. 6 THAI EXOCIL TO THE RIGHT GROIN. BED LOW. CL IN REACH.
--- NOTE | 2019-01-11 12:06 | NUR ---
RIGHT GROIN SOFT, SHOWS NO S/S OF HEMATOMA, DRESSING C/D/I. PP CHECKED. VS STABLE. PT HAS NO FURTHER NEEDS AT THIS TIME. BED LOW. CL IN REACH. WILL CONTINUE TO MONITOR.
--- NOTE | 2019-01-11 12:59 | NUR ---
SPOKE WITH DR. LEUNG HE STATES TO ORDERS PT'S HOME MEDS AND START XARELTO FOR TOMORROW.
[2019-01-11] MEDS ORDERED: TUMS X-STR300 MG PO (13:00)
--- NOTE | 2019-01-11 14:39 | NUR ---
RIGHT GROIN SOFT, SHOWS NO S/S OF HEMATOMA, DRESSING C/D/I. PP CHECKED. PT HAS NO FURTHER NEEDS AT THIS TIME. BED LOW. CL IN REACH.
--- NOTE | 2019-01-11 15:59 | NUR ---
PT'S HOB RAISED GRADUALLY. RIGHT GROIN SOFT, SHOS NO S/S OF HEMATOMA, DRESSING C/D/I. GAVE PT A URINAL. PT HAS NO FURTHER NEEDS AT THIS TIME. BED LOW. CL IN REACH.
--- NOTE | 2019-01-11 17:03 | NUR ---
PT'S BILATERAL LEGS 4+ PITTING EDEMA ALLAND EDEMA IN ARMS. PT HAS BEEN INCONTENT TODAY AND JUST CHANGED PT AND URINE WAS COMPLETELY BLOODY. GROIN ALSO RED AND YEAST LIKE. CAALLED DR. DELACRUZ AND REPORTED ALL THIS TO HIM. HE STATES HE WILL WATCH PT'S H&H AND PT IS ON PLAVIX AND PT HAS A HX OF BLOODY URINE. HE ALSO STATES TO ORDER BUMEX 2MG BID AND NYSTATIN POWDER BID. I VERBALIZED UNDERSTANDING.
--- NOTE | 2019-01-11 18:38 | NUR ---
PT IN BED WITH HOB ELEVATED. ALERT AND ORIENTED. PP CHECKED. RIGHT GROIN SOFT, DRESSING C/D/I. PT HAS NO FURTHER NEEDS AT THIS TIME. BED LOW. CL IN REACH.
[2019-01-12 00:15] VITALS: BP 114/59
--- NOTE | 2019-01-12 04:02 | NUR ---
I have reviewed this patient and I concur with the Shift Assessment completed by the Licensed Practical Nurse today this shift.
[2019-01-12 04:18] VITALS: BP 109/46
--- NOTE | 2019-01-12 07:30 | NUR ---
PATIENT IS ALERT AND AWAKE AT THIS TIME. HE IS SITTING UP IN BED AND AWARE THAT HE WILL BE DISCHARGED TODAY.
[2019-01-12 09:10] VITALS: BP 123/56
[2019-01-12] MEDS ORDERED: PLAVIX75 MG PO (11:32)
--- NOTE | 2019-01-12 11:33 | NUR ---
SPOKE WITH DR LEUNG RE PT RESUMING XARELTO. HE IS OK TO RESUME TODAY. PER DR LEUNG WILL NOT RX ASPIRIN.
--- NOTE | 2019-01-12 13:28 | NUR ---
PATIENT HAS BEEN DISCHARGED, ALL DISCHARGE TEACHING HAS BEEN DONE AND PAPERS SIGNED. IV REMOVED FROM LEFT HAND WITH CATHETER INTACT. ALL PATIENT BELONGINGS HAVE BEEN BAGGED UP AND WILL BE GOING HOME WITH THE PATIENT. HE RECIEVED THE PRESCRIPTION FOR MEDICATION AND HIS RIDE IS ON ITS WAY. HE WILL GO DOWNSTAIRS BY WHEEL CHAIR.
--- NOTE | 2019-01-12 13:48 | NUR ---
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
--- NOTE | 2019-01-14 09:28 | HP ---
PATIENT: MJ WASHINGTON MEDICAL RECORD: [id number] ACCOUNT: [id number] LOCATION:[facility] : 33 ADMISSION DATE: 01/11/19 PCP: ROHITH MENG MD HISTORY AND PHYSICAL EXAMINATION DIAGNOSES: 1. Unstable angina. 2. Coronary artery disease. 3. Previous multivessel percutaneous transluminal coronary angioplasty stent. 4. Ischemic cardiomyopathy. 5. Congestive heart failure, chronic systolic dysfunction. 6. Hypertension. 7. Hyperlipidemia. HISTORY OF PRESENT ILLNESS: Mr. Washington has been having increasing episodes of chest pain, chest discomfort compatible with angina. He has now class III anginal symptomatology and progressing despite medical therapy. His angina is just like that of his previous angina. PHYSICAL EXAMINATION: CONSTITUTIONAL/GENERAL APPEARANCE: Well nourished, well developed, appears stated age. EYES: Lids and conjunctivae noninjected. No discharge. No pallor. ENT: Lips within normal limit. No cyanosis. No pallor. NECK: Carotid arteries, bilateral normal upstroke. No bruits. No thrills. No jugular venous pressure or distention. CERVICAL LYMPH NODES: Nontender. Nonenlarged. THYROID: Not enlarged. No nodules. CARDIOVASCULAR: Precordial exam, nondisplaced. No heaves or pericardial thrills. Rate and rhythm, regular. Heart sounds, normal S1, normal S2. No S3, no gallop, no rub. Systolic murmur, not heard. Diastolic murmur, not heard. RESPIRATORY: Respiratory effort, unlabored. Normal curvature. No thoracic deformity. No chest wall tenderness. Percussion, resonant. Auscultation, clear. No wheezes, no rales, no rhonchi. ABDOMEN: Soft, nondistended, nontender. No abdominal pain, no vomiting and normal appetite. MUSCULOSKELETAL: No joint tenderness, normal gait, normal tone. SKIN: Warm and dry. REVIEW OF SYSTEMS: The patient reports easy bruising but reports no swollen glands. The patient reports no fever, no night sweats, no significant weight gain, no significant weight loss. No significant exercise tolerance. The patient reports no dry eyes, no irritation, no vision change. Patient reports no difficulty hearing and no ear pain. Patient reports no frequent nose bleeds or nose and sinus problems. Patient reports on arm pain on exertion. No shortness of breath while lying down. No history of heart murmur. Patient reports no cough, no wheezing or coughing up blood. Patient reports no abdominal pain, no vomiting. Normal appetite. No diarrhea and not vomiting blood. No nausea and no constipation. Patient reports no incontinence. No difficulty urinating. No hematuria. No increased frequency. Patient reports no muscle aches. No weakness, no arthralgias, no back pain. No swelling of the extremities. Patient reports no abnormal mole, no jaundice, no rashes. Reports no loss of consciousness. No weakness and no numbness. No seizures, dizziness, or headaches. The patient reports no depression, no sleep disturbance, feeling safe in a relationship and no alcohol abuse. Patient reports on fatigue. HISTORY AND PHYSICAL [id number] MJ WASHINGTON Reports no runny nose or sinus pressure. No itching, no hives, and no frequent sneezing. SOCIAL HISTORY: He lives in the [place] area, he is retired. Denies smoking or ETOH. FAMILY HISTORY: Negative for coronary artery disease, positive for hypertension. OVERALL IMPRESSION: Unstable anginal symptomatology in an escalating fashion just like that of his previous angina despite medical management. We will proceed with coronary angiography as most likely he has recurrent hemodynamically significant coronary artery disease. TRANSINT:[id number] Voice Confirmation ID: [id number] DOCUMENT ID: [id number] ANITRA LEUNG MD at 0928 CC: [id number] DICTATION DATE: 01/11/19 113 OFFICE SUPERVISOR: 01/11/19 1139 DEP CLI 01/12/19 [id number] [place] [address]
--- NOTE | 2019-01-14 09:28 | OP ---
PATIENT NAME: MJ GUTIERREZ MEDICAL RECORD: [id number] :33 LOCATION:[facility] ADMISSION DATE: SURGEON: ANITRA LEUNG MD DATE OF OPERATION: 01/11/2019 PROCEDURES: 1. PTCA stent LAD diagonal. 2. PTCA, LAD. 3. IFR. 4. Left heart catheterization. 5. Selective coronary angiography. 6. Left ventriculogram. INDICATION: Unstable angina and coronary artery disease. PROCEDURE IN DETAIL: After informed consent was obtained and after a detailed description of the risks, benefits as well as alternative therapies, the patient elected to proceed with angiogram and angioplasty. The right femoral area was prepped and draped in normal sterile fashion. Right femoral artery was cannulated via modified Seldinger technique. FINDINGS: Left ventriculogram was performed in standard 30-degree AMADO view, reveals global hypokinesis, ejection fraction in the 30% range. SELECTIVE CORONARY ANGIOGRAPHY: 1. Left main is with no significant angiographic disease. 2. Left anterior descending as well as the diagonal have previously placed stents. LAD had a hazy area of possible 70% stenosis, it was in-stent restenosis proximally. IFR was abnormal at 0.80. The diagonal has 90% stenosis before the previously placed stent. 3. Left circumflex has moderate irregularities, but no flow-limiting stenosis. 4. Right coronary artery has moderate irregularities, but no flow-limiting stenosis. IFR was performed to the circumflex to the ostium. The circumflex being angulated. IFR was normal in the circumflex. PTCA STENT OF THE LAD DIAGONAL: The stent used was a 2.5 x 15 mm Leonel. Result was 0% residual stenosis. PTCA OF THE LAD: High-pressure PTCA was made with a 3.5 balloon taken to 21 atmospheres. Result was 0% residual throughout. IFR normalized in the LAD to 0.99. OVERALL IMPRESSION: Successful percutaneous transluminal coronary angioplasty stent of the left anterior descending diagonal and percutaneous transluminal coronary angioplasty of the left anterior descending going from 70% to 90% initial stenosis to 0% residual. TRANSINT:[id number] Voice Confirmation ID: [id number] DOCUMENT ID: [id number] OPERATIVE REPORT [id number] MJ GUTIERREZ ANITRA LEUNG MD at 0928 CC: [id number] DICTATION DATE: 01/11/19 1132 AIRVEYOR OPERATOR: 01/11/19 1141 DEP CLI 01/12/19 [id number] [place] [id number]
--- NOTE | 2019-01-14 09:28 | DS ---
PATIENT:MJ WASHINGTON :33 MEDICAL RECORD: [id number] DISCHARGE SUMMARY ADMISSION DATE: 01/11/19 DISCHARGE DATE: 01/12/19 DISCHARGE DIAGNOSES: 1. Angina. 2. Percutaneous transluminal coronary angioplasty stent left anterior descending this admission. 3. Hypertension. 4. Hyperlipidemia. HOSPITAL COURSE: Mr. Washington presents with anginal symptomatology, found to have significant disease of the LAD, underwent successful PTCA stent of this with no further anginal symptomatology. She is discharged home with the addition of Plavix to his Xarelto, which she is on for chronic atrial fibrillation. We will follow up with [facility] in 1 month. TRANSINT:[id number] Voice Confirmation ID: [id number] DOCUMENT ID: [id number] ANITRA LEUNG MD at 0928 CC: [id number] DICTATION DATE: 01/12/19 1014 CULINARY INSTRUCTOR: 01/13/19 0006 DEP CLI 01/12/19 [id number] [place] [address]
== END 2019-01-12 13:55 | disposition home or self-care (01) ==
LOC: D.CATH 08:29 → D.M2 11:34 → D.CATH 01-12 13:55
PROVIDERS: ATTEND Internal Medicine Interventional Cardiology
DX: I25.110 Atherosclerotic heart disease of native coronary artery with unstable angina pectoris (principal); I10 Essential (primary) hypertension; E78.5 Hyperlipidemia, unspecified
CPT/HCPCS: C9600; 92920; 93458; 93571; 93572